=== PATIENT | female | born 1950 | race Hispanic/Latino ===

== ENCOUNTER 2017-07-03 13:22 | Inpatient (IN) | payer MEDICARE ==
[2017-07-03] MEDS ORDERED: Albuterol-Ipratrop 3 mg / 0.5 (3 ml) UD INH STA (14:11)
[2017-07-03] MEDS ORDERED: Sodium Chloride 0.9% 500 ML IV SCH (14:15)
--- NOTE | 2017-07-03 14:20 | ED PDOC ---
HPI:STROKE - Time Time: 14:12 - Historian Historian: Patient, Family - Chief Complaint Chief Complaint: Mental status change - Onset Date: 06/03/17 Time: 14:00 - Timing Timing: Currently Symptomatic, Intermittent - TPA Positive for Contraindication: Yes Reason tPA is not being Administered: out of window for thrombolytics - Notes: Notes:: Pt. with confusion and saying things that are not there off and on for 1 month. Son decided to come in as pt. has had similar when she had a stroke. No weakness. chest pain, dyspnea, fever. Chronic cough for a long time. No numbness, tingles, weakness. No abd pain, nasuea, diarrhea. No vision changes. NIHSS Stroke Scale - Date/Time Evaluation Performed Date Performed: 07/03/17 Time Performed: 14:00 When Was NIHSS Performed: Baseline - How Severe is the Stroke Level of Consciousness: 0=Alert LOC to Questions: 0=Both comments correct LOC to commands: 0=Obeys both correctly Best Gaze: 0=Normal Visual: 0=No visual loss Facial: 0=Normal Motor Arm - Left: 0=No drift Motor Arm - Right: 0=No drift Motor Leg - Left: 0=No drift Motor Leg - Right: 0=No drift Limb Ataxia: 0=Absent Sensory: 0=Normal Best Language: 0=No aphasia Dysarthia: 0=Normal articulation Extinction & Inattention (Neglect): 0=Normal, no object Score: 0 rTPA Inclusion/Exclusion - Refusal of Treatment Patient Refused Treatment: No - Inclusion Criteria for Altepase Patient is 18 years or Older: Yes The Clinical Diagnosis of Ischemic Stroke That is Causing a Potentially Disabling Neurological Deficit: No Time of Onset is Well Established to be Less Than 270 Minute Before Treatment Would Begin: No Risk/Benefit Discussed With Patient/Family Member Present: No Past Medical History Reviewed: Nursing Documentation, Vital Signs Vital Signs: Last Vital Signs Temp 99 F 07/03/17 13:54 Pulse 82 07/03/17 13:54 Resp 18 07/03/17 13:54 BP 148/67 07/03/17 13:54 Pulse Ox 96 07/03/17 13:54 - Medical History PMH: COPD, CVA (no deficits), Diabetes, HTN, Hypercholesterolemia Other PMH: [place] - Surgical History Surgical History: CABG Denies: Pacemaker - Family History Family History: States: Unknown Family Hx - Living Arrangements Living Arrangements: With Family - Social History Current smoker - smoking cessation education provided: No Alcohol: None Drugs: Denies - Home Medications Home Medications: Ambulatory Orders Medication Instructions Recorded Aspirin 81 mg PO DAILY 09/02/12 Enalapril Maleate [Enalapril] 10 mg PO DAILY 09/02/12 Glipizide 5 mg PO HS 09/02/12 Glipizide 10 mg PO DAILY 09/02/12 Metformin HCl [Metformin] 1,000 mg PO BID 09/02/12 Metoprolol Succinate [Toprol XL] 25 mg PO DAILY 09/02/12 Pravastatin Sodium [Pravastatin] 80 mg PO DAILY 09/02/12 - Allergies Allergies/Adverse Reactions: Allergies Allergy/AdvReac Type Severity Reaction Status Date / Time codeine Allergy RASH Verified 07/03/17 13:37 meperidine Allergy RASH Verified 07/03/17 13:37 naproxen Allergy RASH Verified 07/03/17 13:38 Review of Systems ROS Statement: Except As Marked, All Systems Reviewed And Found Negative Respiratory: Positive for: Cough Neurological: Positive for: Confusion, Altered Mental Status Physical Exam - Reviewed Nursing Documentation Reviewed: Yes Vital Signs Reviewed: Yes - Physical Exam Appears: Positive for: Non-toxic, No Acute Distress Head Exam: Positive for: ATRAUMATIC, NORMAL INSPECTION, NORMOCEPHALIC Skin: Positive for: Normal Color, Warm, DRY Eye Exam: Positive for: EOMI, Normal appearance, PERRL ENT: Positive for: Normal ENT Inspection Neck: Positive for: Normal, Painless ROM Cardiovascular/Chest: Positive for: Regular Rate, Rhythm Respiratory: Positive for: Decreased Breath Sounds, Other (mild course breath sounds b/l). Negative for: Accessory Muscle Use Gastrointestinal/Abdominal: Positive for: Normal Exam, Bowel Sounds, Soft. Negative for: Tenderness Back: Positive for: Normal Inspection. Negative for: L CVA Tenderness, R CVA Tenderness Extremity: Positive for: Normal ROM. Negative for: Tenderness, Pedal Edema Neurologic/Psych: Positive for: Alert, dam tender II-XII, Oriented. Negative for: Motor/Sensory Deficits, Aphasia, Facial Droop - Laboratory Results Result Diagrams: 07/03/17 14:35 07/03/17 14:15 Interpretation Of Abn Labs: no acute - ECG ECG: Positive for: Interpreted By Me, Viewed By Me ECG Rhythm: Positive for: Normal QRS, Normal ST Segment, Sinus Rhythm O2 Sat by Pulse Oximetry: 96 Pulse Ox Interpretation: Normal - Radiology X-Ray: Interpreted by Me, Viewed By Me, Read By Radiologist X-Ray Interpretation: No Acute Disease - CT Scan/US head Other Rad Studies (CT/US): Read By Radiologist Other Rad Interpretation: no acute - Progress ED Course And Treament: 1629: Spoke with Dr. Young who agrees with admit. He will consult as needed. No additional tx at this time. 1632: Stable. Spoke with [facility] resident. WIll admit tele. Disposition - Clinical Impression Clinical Impression: Altered mental status - Patient ED Disposition Is Patient to be Admitted: No Counseled Patient/Family Regarding: Studies Performed, Diagnosis - Disposition Disposition Time: 16:00 Condition: FAIR - Pt Status Changed To: Hospital Disposition Of: Inpatient - Admit Certification Admit to Inpatient:: After my assessment, the patient will require hospitalization for at least two midnights. This is because of the severity of symptoms shown, intensity of services needed, and/or the medical risk in this patient being treated as an outpatient. - POA Present On Arrival: None
[2017-07-03 14:38] LABS: BASO # 0.1 K/uL (0.0-0.2); BASO % 1.2 % (0.0-2.0); EOS # 0.1 K/uL (0.0-0.7); EOS % 0.6 % (0.0-4.0); HEMOGLOBIN 14.3 g/dL (12.0-16.0); LYMPH # 1.4 K/uL (1.0-4.3); LYMPH % 13.9 % (20.0-40.0); MEAN CELL VOLUME 86.7 fl (81.0-99.0); MEAN CORPUSCULAR HEMOGLOBIN 28.6 pg (27.0-31.0); MEAN PLATELET VOLUME 8.1 fl (7.2-11.7); MONO # 0.7 K/uL (0.0-0.8); NEUT # 7.7 K/uL (1.8-7.0); NEUT % 77.3 % (50.0-75.0); NRBC % 0.1 % (0.0-0.0); RBC 5.01 Mil/uL (3.80-5.20)
--- NOTE | 2017-07-03 14:51 | CT ---
PROCEDURE: CT HEAD WITHOUT CONTRAST. HISTORY: altered behavior COMPARISON: None available. TECHNIQUE: Axial computed tomography images were obtained through the head/brain without intravenous contrast. Coronal and sagittal reconstructed images. Radiation dose: Total exam DLP = 1132.99 mGy-cm. This CT exam was performed using one or more of the following dose reduction techniques: Automated exposure control, adjustment of the mA and/or kV according to patient size, and/or use of iterative reconstruction technique. FINDINGS: HEMORRHAGE: No intracranial hemorrhage. BRAIN: No mass effect or edema. No atrophy or chronic microvascular ischemic changes. VENTRICLES: Unremarkable. No hydrocephalus. CALVARIUM: Unremarkable. PARANASAL SINUSES: Unremarkable as visualized. No significant inflammatory changes. MASTOID AIR CELLS: Unremarkable as visualized. No inflammatory changes. OTHER FINDINGS: None. IMPRESSION: No acute intracranial abnormalities. No significant findings to account for the clinical presentation.
[2017-07-03 14:56] LABS: INR 1.1 (0.9-1.2); PARTIAL THROMBOPLASTIN TIME 27.8 Seconds (25.6-37.1)
[2017-07-03 15:00] LABS: ALB/GLOB RATIO 1.3 (1.0-2.1); ALT/SGPT 28 U/L (9-52); AST/SGOT 17 U/L (14-36); BLOOD UREA NITROGEN 13 mg/dl (7-17); GFR AFRICAN-AMERICAN > 60; GFR NON-AFRICAN AMERICAN > 60; HDL CHOLESTEROL 42 MG/DL (30-70)
[2017-07-03 15:12] LABS: LDL CHOLESTEROL 130 mg/dL (0-129)
[2017-07-03] MEDS ORDERED: Albuterol-Ipratrop 3 mg / 0.5 (3 ml) UD ONE (15:37)
--- NOTE | 2017-07-03 16:08 | RAD ---
HISTORY: stroke eval COMPARISON: 08/20/2012. FINDINGS: LUNGS: No active pulmonary disease. PLEURA: No significant pleural effusion identified, no pneumothorax apparent. CARDIOVASCULAR: No radiographic findings to suggest acute or significant cardiovascular disease. Incidental Finding(s): Postoperative changes related to sternotomy. OSSEOUS STRUCTURES: No significant abnormalities. VISUALIZED UPPER ABDOMEN: Normal. OTHER FINDINGS: None. IMPRESSION: No active disease. No significant interval change compared to the prior examination(s).
[2017-07-03 18:00] LABS: SQUAMOUS EPITHIAL 3 /hpf (0-5); URINE BILIRUBIN NEGATIVE (NEGATIVE); URINE BLOOD SMALL (NEGATIVE); URINE CLARITY CLEAR (Clear); URINE COLOR YELLOW (YELLOW); URINE GLUCOSE (UA) NEG (Normal); URINE LEUKOCYTE ESTERASE NEG Leu/uL (Negative); URINE NITRATE NEGATIVE (NEGATIVE); URINE PROTEIN 100 mg/dL (NEGATIVE); URINE UROBILINOGEN 0.2-1.0 mg/dL (0.2-1.0)
[2017-07-03] MEDS ORDERED: Albuterol-Ipratrop 3 mg / 0.5 (3 ml) UD INH PRN (19:13)
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
[2017-07-03] MEDS ORDERED: Dextrose 50% SYRINGE Inj (50 ml) IV PRN (19:56)
[2017-07-03] MEDS ORDERED: Glucagon Recombinant 1 mg Inj IM PRN (19:56)
[2017-07-03] MEDS: Insulin Regular 100 units/ml SC SCH (21:44)
[2017-07-04 01:28] LABS: BARBITURATES, UR NEGATIVE (NEGATIVE); BENZODIAZEPINES, UR NEGATIVE (NEGATIVE); OPIATES, UR NEGATIVE (NEGATIVE); PHENCYCLIDINE, UR NEGATIVE (NEGATIVE)
[2017-07-04] MEDS: Insulin Regular 100 units/ml SC SCH (06:53)
--- NOTE | 2017-07-04 07:36 | CARD ---
APPROVED REPORT EKG Measurement Heart [id number] <Conclusion> Normal sinus rhythm Biatrial enlargement Left ventricular hypertrophy Abnormal ECG
[2017-07-04 08:15] VITALS: RESP 18; TEMP 98; O2SAT 94
[2017-07-04] MEDS ORDERED: Pravastatin Sodium 40 MG TAB PO SCH (09:00)
[2017-07-04] MEDS ORDERED: FATTY ACIDS PO SCH (09:00)
[2017-07-04] MEDS ORDERED: GlipiZIDE 5 mg SR Tab PO SCH (09:00)
[2017-07-04] MEDS ORDERED: Enoxaparin 40 mg Syringe SC SCH (09:00)
[2017-07-04] MEDS ORDERED: OMEGA PO SCH (09:00)
[2017-07-04] MEDS ORDERED: Patient's Own Med (Enalapril/Hydrochlorothiazide [Enalapril-Hctz 10-25 Mg Tablet] 1 TAB) PO SCH (09:00)
[2017-07-04] MEDS ORDERED: FOLIC ACID 400 MCG PO SCH (09:00)
[2017-07-04] MEDS ORDERED: FISH OIL PO SCH (09:00)
[2017-07-04] MEDS ORDERED: Omega-3-Acid Ethyl Esters 1 GM Cap PO SCH (09:00)
--- NOTE | 2017-07-04 11:02 | CP.PCM.CON ---
History of Present Illness - History of Present Illness History of Present Illness: this 66-year -old female who required left carotid endarterectomy after indirect inguinal infarct in July subsequently required coronary bypass graft surgery in November 2012. Patient has been a long-standing hypertensive and diabetic with dyslipidemia was also has been a heavy cigarette smoker. She has significant COPD and chronic productive cough. The patient is physically extremely active and climbs couple of flights of stairs on multiple occasions in the course of an average day as part of her work. 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 She has not had symptoms of congestive cardiac failure or chest pain unconnected to physical activity. She has not been on any Diuretics. The patient has not been able to take her antibiotic diabetic because she could not afford it for couple of years. Recently she had a fall and her sternotomy has dehisced. She complains of severe discomfort while coughing. She has also developed severe bursitis of both shoulders. The patient recently developed short-term memory deficit. She has been quite concerned about periods of confusion. She was brought to the emergency room yesterday by her son when he found her repeating herself and being confused. On examination this morning the patient appears quite lucid and concerned about her periods of confusion as well. She continues to experience severe bilateral shoulder pains particularly on any movement. She was afebrile with a pulse rate of 68 bpm and regular and a blood pressure of 134/74 mmHg. Her jugular venous pressure was not elevated there was no edema or lower extremities the pedal pulses were not palpable there were no carotid bruits. A scar of left carotid endarterectomy was evident. Her extremities were warm her nailbeds were pink there was no central or peripheral cyanosis there was no clubbing a sternotomy was evident. The first and second heart sounds were normal there was no murmur or gallop there were no rales her abdomen was soft liver and spleen are not palpable Her electric cardiogram showed sinus rhythm with a normal EKG pattern. Her labs were noted. Impression: stable coronary artery disease with status post coronary bypass graft surgery. Status post left carotid endarterectomy. Diabetes mellitus/ hypertension/dyslipidemia. Severe peripheral arterial disease with claudication. Bilateral bursitis of shoulders. The patient is stable from cardiovascular point of view and no further interventions are necessary as far as her cardiac status is concerned.. Past Patient History - Past Medical History & Family History Past Medical History?: Yes - Past Social History Alcohol: None Drugs: Denies - CARDIAC Hx Cardiac Disorders: Yes - PULMONARY Hx Respiratory Disorders: No - NEUROLOGICAL Hx Neurological Disorder: Yes - HEENT Hx HEENT Problems: No - RENAL Hx Chronic Kidney Disease: No - ENDOCRINE/METABOLIC Hx Endocrine Disorders: Yes - HEMATOLOGICAL/ONCOLOGICAL Hx Blood Transfusions: No Hx Blood Transfusion Reaction: No - INTEGUMENTARY Hx Dermatological Problems: No - MUSCULOSKELETAL/RHEUMATOLOGICAL Hx Musculoskeletal Disorders: No - GASTROINTESTINAL Hx Gastrointestinal Disorders: No - GENITOURINARY/GYNECOLOGICAL Hx Genitourinary Disorders: No - PSYCHIATRIC Hx Psychophysiologic Disorder: No - SURGICAL HISTORY Hx Coronary Artery Bypass Graft: Yes - ANESTHESIA Hx Anesthesia: Yes Hx Anesthesia Reactions: No Hx Malignant Hyperthermia: No Meds Allergies/Adverse Reactions: Allergies Allergy/AdvReac Type Severity Reaction Status Date / Time codeine Allergy RASH Verified 07/03/17 13:37 meperidine Allergy RASH Verified 07/03/17 13:37 naproxen Allergy RASH Verified 07/03/17 13:38 - Medications Medications: Current Medications Albuterol/Ipratropium (Duoneb 3 Mg/0.5 Mg (3 Ml) Ud) 3 ml INH RQ6 PRN PRN Reason: Shortness of Breath Dextrose (Dextrose 50% Inj) 0 ml IV STAT PRN; Protocol PRN Reason: Hyglycemia Protocol Dextrose (Glutose 15) 0 gm PO ONCE PRN; Protocol PRN Reason: Hypoglycemia Protocol Enalapril Maleate (Vasotec) 10 mg PO DAILY [facility] Last Admin: 07/04/17 08:54 Dose: 10 mg Enoxaparin Sodium (Lovenox) 40 mg SC DAILY [facility] PRN Reason: Protocol Last Admin: 07/04/17 08:52 Dose: 40 mg Glipizide (Glucotrol Xl) 5 mg PO DAILY@0800 [facility] Last Admin: 07/04/17 08:54 Dose: 5 mg Glucagon (Glucagen Diagnostic Kit) 0 mg IM STAT PRN; Protocol PRN Reason: Hypoglycemia Protocol Home Med (Enalapril/Hydrochlorothiazide [Enalapril-Hctz 10-25 Mg Tablet]) 1 tab PO DAILY [facility] Hydrochlorothiazide (Hydrodiuril) 25 mg PO DAILY [facility] Last Admin: 07/04/17 08:52 Dose: 25 mg Ibuprofen (Motrin Tab) 600 mg PO Q6 PRN PRN Reason: Pain, moderate (4-7) Last Admin: 07/04/17 05:01 Dose: 600 mg Insulin Human Regular (Humulin R) 0 units SC ACHS [facility] PRN Reason: Protocol Last Admin: 07/04/17 06:53 Dose: Not Given Metformin HCl (Glucophage) 1,000 mg PO BID@0800,1700 [facility] Last Admin: 07/04/17 08:53 Dose: 1,000 mg Metoprolol Tartrate (Lopressor) 25 mg PO Q12H [facility] Last Admin: 07/04/17 06:49 Dose: 25 mg Morphine Sulfate (Morphine) 1 mg IVP Q4 PRN PRN Reason: Pain, severe (8-10) Last Admin: 07/04/17 09:05 Dose: 1 mg Nicotine (Nicoderm Cq) 1 patch TD DAILY [facility] Last Admin: 07/04/17 08:54 Dose: Not Given Nitroglycerin (Nitrostat Sl Tab) 0.4 mg SL Q5MIN PRN PRN Reason: chest pain Unycd-9-Wypi Ethyl Esters (Lovaza) 1 gm PO DAILY [facility] Last Admin: 07/04/17 08:54 Dose: 1 gm Pravastatin Sodium (Pravachol) 40 mg PO DAILY [facility] Last Admin: 07/04/17 08:53 Dose: 40 mg Results - Vital Signs Recent Vital Signs: Last Vital Signs Temp 98.0 F 07/04/17 08:00 Pulse 61 07/04/17 08:00 Resp 18 07/04/17 08:00 BP 186/65 H 07/04/17 08:00 Pulse Ox 94 L 07/04/17 08:00 - Labs Result Diagrams: 07/03/17 14:35 07/03/17 14:15 Labs: Laboratory Results - last 24 hr 07/03/17 07/03/17 07/03/17 17:30 20:48 23:09 POC Glucose (mg/dL) 219 H Troponin I 0.0130 TSH 3rd Generation Urine Color Yellow Urine Clarity Clear Urine pH 6.0 Ur Specific [place] 1.011 Urine Protein 100 Urine Glucose (UA) Neg Urine Ketones Negative Urine Blood Small Urine Nitrate Negative Urine Bilirubin Negative Urine Urobilinogen 0.2-1.0 Ur Leukocyte Esterase Neg Urine RBC (Auto) 1 Urine Microscopic WBC < 1 Ur Squamous Epith Cells 3 07/04/17 07/04/17 05:12 05:40 POC Glucose (mg/dL) 150 H Troponin I TSH 3rd Generation 3.42 Urine Color Urine Clarity Urine pH Ur Specific [place] Urine Protein Urine Glucose (UA) Urine Ketones Urine Blood Urine Nitrate Urine Bilirubin Urine Urobilinogen Ur Leukocyte Esterase Urine RBC (Auto) Urine Microscopic WBC Ur Squamous Epith Cells
--- NOTE | 2017-07-04 11:54 | CARD ---
APPROVED REPORT EXAM: Two-dimensional and M-mode echocardiogram with Doppler and color Doppler. Other Information Quality : FairRhythm : NSR INDICATION Cardiac Disease: CAD LVH Surgery/Intervention ICD/Pacemaker: 2D DIMENSIONS IVSd0.67 (0.7-1.1cm)LVDd4.31 (3.9-5.9cm) LVOT Diameter1.76 (1.8-2.4cm)PWd0.79 (0.7-1.1cm) IVSs1.08 (0.8-1.2cm)LVDs2.48 (2.5-4.0cm) FS (%) 42.4 %PWs1.13 (0.8-1.2cm) M-Mode DIMENSIONS Left Atrium (MM)3.97 (2.5-4.0cm)IVSd0.88 (0.7-1.1cm) Aortic Root2.72 (2.2-3.7cm)LVDd4.19 (4.0-5.6cm) Aortic Cusp Exc.1.97 (1.5-2.0cm)PWd0.91 (0.7-1.1cm) IVSs1.50 cmFS (%) 39 % LVDs2.56 (2.0-3.8cm)PWs1.00 cm Aortic Valve AoV Peak Anpjcjpf157.2cm/sAoV VTI54.5cmAO Peak GR.16mmHg LVOT Peak Kglnrary065.0cm/sLVOT VTI36.67cmAO Mean GR.10mmHg BARBARA (VMAX)0.28qb9HAO (VTI)0.94cm2 Mitral Valve MV E Nlymwjgc29.7cm/sMV DECEL MROL460qoDD A Bdcgmnbe86.3cm/s MV FJX17xcC/A ratio0.9MVA (PHT)3.52cm2 TDI Lateral E' Peak V7.66cm/sMedial E' Peak V5.05cm/sE/Lateral E'9.4 E/Medial E'14.2 Tricuspid Valve TR Peak Ndinhqtq635ok/sRAP WXWHGXKL31edUwZX Peak Gr.26mmHg UFSC05uwSw LEFT VENTRICLE The left ventricle is normal size. There is normal left ventricular wall thickness. Left ventricle systolic function is normal. The Ejection Fraction is 60-65%. There is normal LV segmental wall motion. Transmitral Doppler flow pattern is Grade I-abnormal relaxation pattern. RIGHT VENTRICLE The right ventricle is normal size. There is normal right ventricular wall thickness. The right ventricular systolic function is normal. ATRIA The left atrium size is normal. The right atrium size is normal. AORTIC VALVE The aortic valve is mildly sclerotic. No aortic regurgitation is present. There is mild valvular aortic stenosis. Calculated aortic valve area is 1.7 cm2 with maximum pressure gradient of 17 mmHg and mean pressure gradient of 10 mmHg. MITRAL VALVE The mitral valve is normal in structure and function. There is no evidence of mitral valve prolapse. There is no mitral valve stenosis. There is no mitral valve regurgitation noted. TRICUSPID VALVE The tricuspid valve is normal in structure and function. There is no tricuspid valve regurgitation noted. PULMONIC VALVE The pulmonary valve is normal in structure and function. There is no pulmonic valvular regurgitation. GREAT VESSELS The aortic root is normal in size. The IVC was not visualized. PERICARDIAL EFFUSION The pericardium appears normal. <Conclusion> The left ventricle is normal size. There is normal left ventricular wall thickness. There is normal LV segmental wall motion. Left ventricle systolic function is normal. The Ejection Fraction is 60-65%. Transmitral Doppler flow pattern is Grade I-abnormal relaxation pattern. There is mild valvular aortic stenosis. Calculated aortic valve area is 1.7 cm2 with maximum pressure gradient of 17 mmHg and mean pressure gradient of 10 mmHg.
[2017-07-04 12:55] VITALS: BP 161/63; PULSE 60
== END 2017-07-04 13:05 | disposition left against medical advice (07) | DRG 948 ==
LOC: H.ER 13:22 → H.ERHOLD 16:34 → H.TEL 19:17
PROVIDERS: ADMIT Family Medicine Geriatric Medicine; ATTEND Family Medicine Geriatric Medicine
DX: R41.82 Altered mental status, unspecified (principal); E11.65 Type 2 diabetes mellitus with hyperglycemia; J44.9 Chronic obstructive pulmonary disease, unspecified; R07.9 Chest pain, unspecified; I25.2 Old myocardial infarction; I73.9 Peripheral vascular disease, unspecified; I10 Essential (primary) hypertension; I25.10 Atherosclerotic heart disease of native coronary artery without angina pectoris; E78.5 Hyperlipidemia, unspecified; M75.52 Bursitis of left shoulder; M75.51 Bursitis of right shoulder; F17.210 Nicotine dependence, cigarettes, uncomplicated; Z95.1 Presence of aortocoronary bypass graft

== ENCOUNTER 2018-04-24 18:27 | Inpatient (IN) | payer MEDICARE ==
[2018-04-24] MEDS ORDERED: Albuterol-Ipratrop 3 mg / 0.5 (3 ml) UD IH STA ×2 (18:57→18:58)
[2018-04-24] MEDS ORDERED: Albuterol-Ipratrop 3 mg / 0.5 (3 ml) UD INH STA (18:57)
--- NOTE | 2018-04-24 19:14 | ED PDOC ---
HPI: SOB/CHF/COPD Time Seen by Provider: 04/24/18 18:41 Chief Complaint (Nursing): Shortness Of Breath Chief Complaint (Provider): Dyspnea History Per: Patient History/Exam Limitations: no limitations Onset/Duration Of Symptoms: Days (3) Additional Complaint(s): Pt. with dyspnea, cough, chest pain off and on. No weakness, headaches, dizziness, neck pain, abd pain, nausea, vomit, diarrhea, leg pain. No back pain. No fever. Has COPD and smokes. Green phlegm for 3 days. Past Medical History Reviewed: Nursing Documentation, Vital Signs Vital Signs: Last Vital Signs Temp 99.1 F 04/24/18 18:30 Pulse 79 04/24/18 18:30 Resp 20 04/24/18 19:40 BP 137/58 L 04/24/18 18:30 Pulse Ox 95 04/24/18 19:40 - Medical History PMH: COPD, CVA (no deficits), Dementia, Diabetes, HTN, Hypercholesterolemia Denies: Chronic Kidney Disease - Surgical History Surgical History: CABG, Carotid Endarterectomy Denies: Pacemaker - Family History Family History: States: Unknown Family Hx - Social History Alcohol: None Drugs: Denies - Home Medications Home Medications: Ambulatory Orders Medication Instructions Recorded Aspirin [Aspirin EC] 325 mg PO DAILY 07/03/17 Enalapril/Hydrochlorothiazide 1 tab PO DAILY 07/03/17 [Enalapril-Hctz 10-25 mg Tablet] Folic Acid [Folic Acid] 400 mcg PO BID 07/03/17 Glipizide [Glipizide Xl] 5 mg PO DAILY 07/03/17 MetFORMIN [glucoPHAGE] 1,000 mg PO BID 07/03/17 Metoprolol Tartrate [Lopressor] 25 mg PO Q12H 07/03/17 Nitroglycerin [Nitrostat] 0.4 mg SL Q5MIN PRN 07/03/17 Irving-3 Fatty Acids/Fish Oil [Fish 1,000 mg PO DAILY 07/03/17 Oil 1,000 mg Capsule] Pravastatin Sodium [Pravachol] 40 mg PO DAILY 07/03/17 - Allergies Allergies/Adverse Reactions: Allergies Allergy/AdvReac Type Severity Reaction Status Date / Time codeine Allergy RASH Verified 04/24/18 18:34 meperidine Allergy RASH Verified 04/24/18 18:34 naproxen Allergy RASH Verified 04/24/18 18:34 Review of Systems ROS Statement: Except As Marked, All Systems Reviewed And Found Negative ENT: Positive for: Nose Congestion Cardiovascular: Positive for: Chest Pain Respiratory: Positive for: Cough, Shortness of Breath, Sputum Physical Exam - Reviewed Nursing Documentation Reviewed: Yes Vital Signs Reviewed: Yes - Physical Exam Appears: Positive for: Non-toxic, No Acute Distress Head Exam: Positive for: ATRAUMATIC, NORMAL INSPECTION, NORMOCEPHALIC Skin: Positive for: Normal Color, Warm, DRY Eye Exam: Positive for: EOMI, Normal appearance, PERRL ENT: Positive for: Nasal Congestion Neck: Positive for: Normal, Painless ROM Cardiovascular/Chest: Positive for: Regular Rate, Rhythm Respiratory: Positive for: Decreased Breath Sounds, Wheezing (b/l). Negative for: Accessory Muscle Use Gastrointestinal/Abdominal: Positive for: Normal Exam, Soft. Negative for: Tenderness Back: Positive for: Normal Inspection. Negative for: L CVA Tenderness, R CVA Tenderness Extremity: Positive for: Normal ROM. Negative for: Tenderness, Pedal Edema Neurologic/Psych: Positive for: Alert, Oriented - Laboratory Results Result Diagrams: 04/24/18 19:45 04/24/18 19:45 Interpretation Of Abn Labs: 2.6 k - ECG ECG: Positive for: Interpreted By Me, Viewed By Me ECG Rhythm: Positive for: Normal QRS, Sinus Rhythm, Nonspecific Changes O2 Sat by Pulse Oximetry: 95 Pulse Ox Interpretation: Normal - Radiology X-Ray: Interpreted by Me, Viewed By Me X-Ray Interpretation: No Acute Disease - Progress ED Course And Treament: 2103: Spoke with [facility] resident. Will admit tele. No pain. AAOx3. Has multiple risk factors. Will need ACS work up and copd management. Disposition - Clinical Impression Clinical Impression: Chest pain, COPD exacerbation - Patient ED Disposition Is Patient to be Admitted: No Counseled Patient/Family Regarding: Studies Performed, Diagnosis - Disposition Disposition Time: 21:04 Condition: FAIR - Pt Status Changed To: Hospital Disposition Of: Observation - POA Present On Arrival: None
[2018-04-24] MEDS ORDERED: Albuterol-Ipratrop 3 mg / 0.5 (3 ml) UD ONE (19:22)
[2018-04-24] MEDS: Sodium Chloride 0.9% 1,000 ML IV SCH (19:35)
[2018-04-24 19:39] LABS: ABG ALLEN TEST YES; ARTERIAL BLOOD GAS O2 SAT 98.1 % (95-98); ARTERIAL BLOOD GAS PCO2 51 mm/Hg (35-45); ARTERIAL BLOOD GAS PO2 60 mm/Hg (80-100); ARTERIAL BLOOD GAS TCO2 41.4 mmol/L (22-28)
[2018-04-24] MEDS ORDERED: Iohexol 240 (50 ml) ONE (19:51)
[2018-04-24 19:54] LABS: BASO # 0.1 K/uL (0.0-0.2); EOS % 0.3 % (0.0-4.0); LYMPH # 1.2 K/uL (1.0-4.3); MEAN CELL VOLUME 85.8 fl (81.0-99.0); MEAN CORPUSCULAR HEMOGLOBIN 29.6 pg (27.0-31.0); MEAN CORPUSCULAR HGB CONC 34.5 g/dL (33.0-37.0); MEAN PLATELET VOLUME 8.3 fl (7.2-11.7); MONO # 0.9 K/uL (0.0-0.8); MONO % 8.9 % (0.0-10.0); NEUT # 7.6 K/uL (1.8-7.0); NEUT % 77.8 % (50.0-75.0); NRBC % 0.1 % (0.0-0.0); RBC 5.07 Mil/uL (3.80-5.20); RED CELL DISTRIBUTION WIDTH 14.1 % (11.5-14.5); WHITE BLOOD COUNT 9.8 K/uL (4.8-10.8)
[2018-04-24 20:09] LABS: ALB/GLOB RATIO 1.1 (1.0-2.1); ALBUMIN 3.7 g/dL (3.5-5.0); ALT/SGPT 27 U/L (9-52); AST/SGOT 14 U/L (14-36); BLOOD UREA NITROGEN 12 mg/dl (7-17); CALCIUM 9.5 mg/dL (8.4-10.2); GFR AFRICAN-AMERICAN > 60; GFR NON-AFRICAN AMERICAN > 60
[2018-04-24 20:20] LABS: B-TYPE NATRIURETIC PEPTIDE 711 pg/ml (0-900)
[2018-04-24 21:00] LABS: PARTIAL THROMBOPLASTIN TIME 28.1 Seconds (25.6-37.1); PROTHROMBIN TIME 11.4 Seconds (9.8-13.1)
[2018-04-24] MEDS ORDERED: Potassium Chloride 20 mEq ER Tab PO STA (21:00)
[2018-04-24] MEDS ORDERED: Potassium Chl 20 mEq in NS 1,000 ML IV SCH (22:00)
[2018-04-24] MEDS ORDERED: Dextrose 50% SYRINGE Inj (50 ml) IV PRN (22:00)
[2018-04-24] MEDS ORDERED: Glucagon Recombinant 1 mg Inj IM PRN (22:00)
[2018-04-24] MEDS ORDERED: levoFLOXacin 750 mg in D5W 150 ML BAG IVPB SCH (22:17)
[2018-04-24] MEDS ORDERED: Insulin Regular 100 units/ml ONE (22:47)
[2018-04-24] MEDS: Insulin Regular 100 units/ml SC SCH (22:55)
--- NOTE | 2018-04-24 23:31 | US ---
EXAM: US Abdomen Limited, Right Upper Quadrant EXAM DATE/TIME: 04/24/2018 9:48 PM CLINICAL HISTORY: 67 years old, female; Pain and signs and symptoms; Vomiting; Abdominal pain; Epigastric; Additional info: Vomiting, right upper quad tenderness TECHNIQUE: Real-time ultrasound of the right upper quadrant with image documentation. COMPARISON: No relevant prior studies available. FINDINGS: There is a negative sonographic Rico's sign per environmental health technologist. Numerous gallstones are present. No pericholecystic fluid. The gallbladder wall measures 2 mm which is within normal limits. The common bile duct measures 5 mm which is within normal limits. The liver is normal and measures 16 cm. The pancreas is normal. No right hydronephrosis. The right kidney measures 11 cm in length. IMPRESSION: Cholelithiasis without evidence of cholecystitis.
--- NOTE | 2018-04-24 23:43 | CP.PCM.HP ---
History of Present Illness - History of Present Illness History of Present Illness: 67 YO F w/ PMH of CAD, PVD, HTN, HLD, Type 2 DM, carotid stenosis s/p endartectomy, COPD presented to the ED with chest pain since 3:30 pm states it is sharp in nature and does not radiate. She has also been having increased SOB. She states she has been taking her medications, however her she has increased difficulty breathing with productive cough over the last 3 days. Denies any fever, chills or travel outside of the country. Patients's thoughts are scattered and has difficulty focusing on the questions, seems to be her baseline according to previous notes. - Patient states she has been having some vomiting and diarrhea. States her vomiting and diarrhea is associated eating jello and chocolate. She had her last eppisode of vomiting around 3 pm when the chest pain began. Has history of chronic constipation and has been using rectal suppositories every other day. States she has history of hemmorids and noticed blood on wiping. Hemoglobin is stable at 15.3. - States she has a history of falls, last fall was on her last admission in 2017. 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 Colindres at [facility] Cardiology: Dr. Young NExt of kin: Frandy (Son) : Unsure of code status, will discuss with son Present on Admission - Present on Admission Any Indicators Present on Admission: No Review of Systems - Review of Systems All systems: reviewed and no additional remarkable complaints except Past Patient History - Past Medical History & Family History Past Medical History?: Yes - Past Social History Alcohol: None Drugs: Denies - CARDIAC Hx Hypercholesterolemia: Yes Hx Hypertension: Yes Hx Pacemaker: No - PULMONARY Hx Chronic Obstructive Pulmonary Disease (COPD): Yes - NEUROLOGICAL Hx Dementia: Yes - HEENT Hx HEENT Problems: No - RENAL Hx Chronic Kidney Disease: No - ENDOCRINE/METABOLIC Hx Endocrine Disorders: Yes - HEMATOLOGICAL/ONCOLOGICAL Hx Blood Transfusions: No Hx Blood Transfusion Reaction: No - INTEGUMENTARY Hx Dermatological Problems: No - MUSCULOSKELETAL/RHEUMATOLOGICAL Hx Musculoskeletal Disorders: No - GASTROINTESTINAL Hx Gastrointestinal Disorders: No - GENITOURINARY/GYNECOLOGICAL Hx Genitourinary Disorders: No - PSYCHIATRIC Hx Psychophysiologic Disorder: No Hx Substance Use: No - SURGICAL HISTORY Hx Carotid Endarterectomy: Yes Hx Coronary Artery Bypass Graft: Yes - ANESTHESIA Hx Anesthesia: Yes Hx Anesthesia Reactions: No Hx Malignant Hyperthermia: No Meds Allergies/Adverse Reactions: Allergies Allergy/AdvReac Type Severity Reaction Status Date / Time codeine Allergy RASH Verified 04/24/18 18:34 meperidine Allergy RASH Verified 04/24/18 18:34 naproxen Allergy RASH Verified 04/24/18 18:34 Physical Exam - Constitutional Appears: No Acute Distress - Head Exam Head Exam: NORMAL INSPECTION - Eye Exam Eye Exam: Normal appearance Pupil Exam: NORMAL ACCOMODATION - ENT Exam ENT Exam: Mucous Membranes Moist, Normal Exam - Respiratory Exam Respiratory Exam: Decreased Breath Sounds, Wheezes. absent: Accessory Muscle Use - Cardiovascular Exam Cardiovascular Exam: REGULAR RHYTHM, +S1, +S2 - GI/Abdominal Exam GI & Abdominal Exam: Soft, Tenderness (mild generalized tenderness, right upper quadrant tenderness) - Extremities Exam Extremities exam: Positive for: calf tenderness, normal inspection - Neurological Exam Neurological exam: Alert, CN II-XII Intact, Oriented x3 - Skin Skin Exam: Normal Color, Warm Results - Vital Signs Recent Vital Signs: Last Vital Signs Temp 98.2 F 04/24/18 23:23 Pulse 82 04/24/18 23:23 Resp 20 04/24/18 23:23 BP 143/83 04/24/18 23:23 Pulse Ox 96 04/24/18 23:23 - Labs Result Diagrams: 04/25/18 05:07 04/25/18 05:07 Labs: Laboratory Results - last 24 hr 04/24/18 04/24/18 04/24/18 19:25 19:45 19:45 WBC 9.8 RBC 5.07 Hgb 15.0 Hct 43.5 MCV 85.8 MCH 29.6 MCHC 34.5 RDW 14.1 Plt Count 338 MPV 8.3 Neut % (Auto) 77.8 H Lymph % (Auto) 12.0 L [place] % (Auto) 8.9 Eos % (Auto) 0.3 Baso % (Auto) 1.0 Neut # (Auto) 7.6 H Lymph # (Auto) 1.2 [place] # (Auto) 0.9 H Eos # (Auto) 0.0 Baso # (Auto) 0.1 PT INR APTT pCO2 51 H pO2 60 L HCO3 36.0 H ABG pH 7.50 H ABG Total CO2 41.4 H ABG O2 Saturation 98.1 H ABG Base Excess 14.3 H Kaden Test Yes ABG Potassium 2.5 L* A-a O2 Difference 76.0 Sodium 137.0 137 Chloride 95.0 L 93 L Glucose 303 H Lactate 0.8 Vent Mode N/c FiO2 28.0 Crit Value Called To Tay patel md Crit Value Called By 6075 Crit Value Read Back Y Blood Gas Notified Time 1938 Potassium 2.6 L Carbon Dioxide 36 H Anion Gap 11 BUN 12 Creatinine 0.6 L Est GFR ( Amer) > 60 Est GFR (Non-Af Amer) > 60 POC Glucose (mg/dL) Random Glucose 291 H Calcium 9.5 Phosphorus 2.4 L Magnesium 1.6 Total Bilirubin 0.6 AST 14 ALT 27 Alkaline Phosphatase 79 Troponin I 0.0200 NT-Pro-B Natriuret Pep 711 Total Protein 7.0 Albumin 3.7 Globulin 3.4 Albumin/Globulin Ratio 1.1 Lipase Arterial Blood Potassium 2.5 L* Influenza Typ A,B (EIA) 04/24/18 04/24/18 04/24/18 19:45 19:45 21:41 WBC RBC Hgb Hct MCV MCH MCHC RDW Plt Count MPV Neut % (Auto) Lymph % (Auto) [place] % (Auto) Eos % (Auto) Baso % (Auto) Neut # (Auto) Lymph # (Auto) [place] # (Auto) Eos # (Auto) Baso # (Auto) PT 11.4 INR 1.0 APTT 28.1 pCO2 pO2 HCO3 ABG pH ABG Total CO2 ABG O2 Saturation ABG Base Excess Kaden Test ABG Potassium A-a O2 Difference Sodium Chloride Glucose Lactate Vent Mode FiO2 Crit Value Called To Crit Value Called By Crit Value Read Back Blood Gas Notified Time Potassium Carbon Dioxide Anion Gap BUN Creatinine Est GFR ( Amer) Est GFR (Non-Af Amer) POC Glucose (mg/dL) 231 H Random Glucose Calcium Phosphorus Magnesium Total Bilirubin AST ALT Alkaline Phosphatase Troponin I NT-Pro-B Natriuret Pep Total Protein Albumin Globulin Albumin/Globulin Ratio Lipase Arterial Blood Potassium Influenza Typ A,B (EIA) Negative for flu a/b 04/24/18 22:36 WBC RBC Hgb Hct MCV MCH MCHC RDW Plt Count MPV Neut % (Auto) Lymph % (Auto) [place] % (Auto) Eos % (Auto) Baso % (Auto) Neut # (Auto) Lymph # (Auto) [place] # (Auto) Eos # (Auto) Baso # (Auto) PT INR APTT pCO2 pO2 HCO3 ABG pH ABG Total CO2 ABG O2 Saturation ABG Base Excess Kaden Test ABG Potassium A-a O2 Difference Sodium Chloride Glucose Lactate Vent Mode FiO2 Crit Value Called To Crit Value Called By Crit Value Read Back Blood Gas Notified Time Potassium Carbon Dioxide Anion Gap BUN Creatinine Est GFR ( Amer) Est GFR (Non-Af Amer) POC Glucose (mg/dL) Random Glucose Calcium Phosphorus Magnesium Total Bilirubin AST ALT Alkaline Phosphatase Troponin I NT-Pro-B Natriuret Pep Total Protein Albumin Globulin Albumin/Globulin Ratio Lipase 40 Arterial Blood Potassium Influenza Typ A,B (EIA) Assessment & Plan - Assessment and Plan (Free Text) Assessment: 67 YO F w/ PMH of CAD, PVD, HTN, HLD, Type 2 DM, carotid stenosis s/p endartectomy, COPD admitted for COPD exacerbation and r/o ACS Chest Pain/CAD- s/p CABG - Troponin x 1 negative follow up troponin and morning repeat ekg - EKG : Non specific EKG changes noted. No acute ischemic event noted Hypokalemia - 2.6 - Potassium 60 x 1 given - IVF with 20 KCL given at 125, - F/U with AM labs COPD exacerbation - Levofloxacin 750 mg daily - Duoneb NESSA - Prednisone 60mg daily HTN 1- Enalapril 10mg QD 2- HCTHZ 25mg QD 3- Metoprolol 25mg BID DM- Type II uncontrolled 1- Continue Metformin 500 BID 2- Continue Glipizie 3- HbA1c pending : Previous HBA1C: 7.7 on 06/2017 4- Sliding scale Insulin- low dose Tobacco abuse 1- Nicotine Patch DVT prophylaxis 1- Lovenox 40mg sc
[2018-04-25] MEDS: levoFLOXacin 750 mg in D5W 750 MG/150 ML BAG IVPB SCH ×2 (00:31→09:21)
[2018-04-25] MEDS ORDERED: DiphenhydrAMINE 50 mg/ml Inj IVP STA (00:56)
[2018-04-25] MEDS: Albuterol-Ipratrop 3 mg / 0.5 (3 ml) UD INH SCH ×7 (01:25→23:55)
[2018-04-25 02:17] LABS: SQUAMOUS EPITHIAL 4 /hpf (0-5); URINE BACTERIA RARE (<OCC); URINE BILIRUBIN NEGATIVE (NEGATIVE); URINE BLOOD NEGATIVE (NEGATIVE); URINE CLARITY SLIGHTY-CLOUDY (Clear); URINE COLOR YELLOW (YELLOW); URINE GLUCOSE (UA) >=500 mg/dL (Normal); URINE LEUKOCYTE ESTERASE NEG Leu/uL (Negative); URINE PROTEIN 100 mg/dL (NEGATIVE)
[2018-04-25 05:31] LABS: BASO # 0.1 K/uL (0.0-0.2); BASO % 0.8 % (0.0-2.0); EOS # 0.1 K/uL (0.0-0.7); EOS % 0.7 % (0.0-4.0); HEMOGLOBIN 15.3 g/dL (12.0-16.0); LYMPH # 1.7 K/uL (1.0-4.3); LYMPH % 18.4 % (20.0-40.0); MEAN CELL VOLUME 87.4 fl (81.0-99.0); MEAN CORPUSCULAR HEMOGLOBIN 29.7 pg (27.0-31.0); MEAN PLATELET VOLUME 8.3 fl (7.2-11.7); MONO % 10.6 % (0.0-10.0); NEUT # 6.3 K/uL (1.8-7.0); NEUT % 69.5 % (50.0-75.0); NRBC % 0.1 % (0.0-0.0); RBC 5.14 Mil/uL (3.80-5.20); RED CELL DISTRIBUTION WIDTH 13.9 % (11.5-14.5)
[2018-04-25 05:34] LABS: ALBUMIN 3.4 g/dL (3.5-5.0); ALT/SGPT 24 U/L (9-52); AST/SGOT 12 U/L (14-36); BLOOD UREA NITROGEN 8 mg/dl (7-17); CALCIUM 9.5 mg/dL (8.4-10.2); GFR AFRICAN-AMERICAN > 60; GFR NON-AFRICAN AMERICAN > 60; HDL CHOLESTEROL 28 MG/DL (30-70)
[2018-04-25 05:42] LABS: LDL CHOLESTEROL 139 mg/dL (0-129)
[2018-04-25] MEDS ORDERED: Potassium Chloride 20 mEq/15 ml LIQ UD PO STA (05:55)
[2018-04-25] MEDS ORDERED: Potassium Chloride 20 mEq/15 ml LIQ UD PO ONE ×2 (06:01→06:03)
[2018-04-25] MEDS: Insulin Regular 100 units/ml SC SCH ×4 (06:34→21:57)
[2018-04-25] MEDS: Fluticasone-Salmeterol 250-50mcg Diskus IH SCH ×2 (08:59→21:54)
[2018-04-25] MEDS ORDERED: levoFLOXacin 750 mg in D5W 750 MG/150 ML BAG IVPB SCH (09:00)
[2018-04-25] MEDS: GlipiZIDE 5 mg SR Tab PO SCH (09:00)
[2018-04-25] MEDS ORDERED: Patient's Own Med (Enalapril/Hydrochlorothiazide [Enalapril-Hctz 10-25 Mg Tablet] 1 TAB) PO SCH (09:00)
[2018-04-25] MEDS: Enoxaparin 40 mg Syringe SC SCH (09:00)
--- NOTE | 2018-04-25 09:08 | RAD ---
HISTORY: Sepsis Patient COMPARISON: Chest radiograph dated 07/03/2017 FINDINGS: LUNGS: No active pulmonary disease. PLEURA: No significant pleural effusion identified, no pneumothorax apparent. CARDIOVASCULAR: Prior sternotomy with sternal wires and surgical clips redemonstrated. Atherosclerotic aortic calcifications. Cardiomediastinal silhouette within normal limits. OSSEOUS STRUCTURES: Unchanged. VISUALIZED UPPER ABDOMEN: Normal. OTHER FINDINGS: None. IMPRESSION: No active disease.
[2018-04-25] MEDS: Pravastatin Sodium 40 MG TAB PO SCH (09:20)
[2018-04-25] MEDS: PrednisoLONE 15 mg/5 ml Oral Syrup (240 ml) PO SCH (09:20)
[2018-04-25] MEDS: Potassium Chloride 20 mEq 100 ML IV SCH ×2 (09:55→11:39)
--- NOTE | 2018-04-25 10:15 | CARD ---
APPROVED REPORT EKG Measurement Heart [id number] <Conclusion> Normal sinus rhythm Possible Left atrial enlargement Left ventricular hypertrophy Nonspecific T wave abnormality Abnormal ECG
--- NOTE | 2018-04-25 10:33 | CARD ---
APPROVED REPORT EKG Measurement Heart [id number] <Conclusion> Normal sinus rhythm Left atrial enlargement Left axis deviation Left ventricular hypertrophy with repolarization abnormality Abnormal ECG
[2018-04-25] MEDS ORDERED: Azithromycin 500 MG in Sodium Chloride 0.9% 250 ML IVPB SCH (10:45)
--- NOTE | 2018-04-25 11:16 | CP.PCM.PN ---
Subjective - Date & Time of Evaluation Date of Evaluation: 04/25/18 Time of Evaluation: 11:14 - Subjective Subjective: Pt was admitted for dyspnea and chest discomfort overnight. Pt seen and examined by bedside this AM. Pt states that her breathing has improved since admission. Endorsing mild chest pain in R thoracic area, pain only with cough. Pt remains afebrile. Objective - Vital Signs/Intake and Output Vital Signs (last 24 hours): Temp Pulse Resp BP Pulse Ox 98.3 F 74 20 173/72 H 94 L 04/25/18 08:08 04/25/18 08:08 04/25/18 08:08 04/25/18 08:08 04/25/18 08:08 - Medications Medications: Current Medications Albuterol/Ipratropium (Duoneb 3 Mg/0.5 Mg (3 Ml) Ud) 3 ml INH RQ4 [facility] Last Admin: 04/25/18 08:02 Dose: 3 ml Aspirin (Aspirin) 325 mg PO ONCE STA Stop: 04/24/18 21:01 Last Admin: 04/24/18 21:23 Dose: Not Given Dextrose (Dextrose 50% Inj) 0 ml IV STAT PRN; Protocol PRN Reason: Hypoglycemia Protocol Dextrose (Glutose 15) 0 gm PO ONCE PRN; Protocol PRN Reason: Hypoglycemia Protocol Enalapril Maleate (Vasotec) 10 mg PO DAILY [facility] Last Admin: 04/25/18 09:00 Dose: 10 mg Enoxaparin Sodium (Lovenox) 40 mg SC DAILY [facility] PRN Reason: Protocol Last Admin: 04/25/18 09:00 Dose: 40 mg Glipizide (Glucotrol Xl) 5 mg PO DAILY [facility] Last Admin: 04/25/18 09:00 Dose: 5 mg Glucagon (Glucagen Diagnostic Kit) 0 mg IM STAT PRN; Protocol PRN Reason: Hypoglycemia Protocol Hydrochlorothiazide (Hydrodiuril) 25 mg PO DAILY [facility] Last Admin: 04/25/18 09:00 Dose: 25 mg Sodium Chloride (Sodium Chloride 0.9%) 1,000 mls @ 500 mls/hr IV .Q2H NESSA Last Admin: 04/24/18 19:35 Dose: 500 mls/hr Potassium Chloride (Potassium Chloride 20 Meq/100 Ml) 100 mls @ 50 mls/hr IV Q2 NESSA Stop: 04/25/18 13:59 Last Admin: 04/25/18 09:55 Dose: 50 mls/hr Azithromycin 500 mg/ Sodium (Chloride) 250 mls @ 250 mls/hr IVPB DAILY [facility] PRN Reason: Protocol Insulin Human Regular (Humulin R) 0 units SC ACHS [facility] PRN Reason: Protocol Last Admin: 04/25/18 06:34 Dose: 1 unit Metformin HCl (Glucophage) 500 mg PO BIDWM [facility] Last Admin: 04/25/18 09:00 Dose: 500 mg Metoprolol Tartrate (Lopressor) 25 mg PO Q12H [facility] Last Admin: 04/25/18 00:28 Dose: 25 mg Mirtazapine (Remeron) 15 mg PO HS [facility] Nicotine (Nicoderm Cq) 1 patch TD DAILY [facility] Last Admin: 04/25/18 09:01 Dose: 1 patch Nitroglycerin (Nitrostat Sl Tab) 0.4 mg SL Q5MIN PRN PRN Reason: chest pain Pravastatin Sodium (Pravachol) 40 mg PO DAILY [facility] Last Admin: 04/25/18 09:20 Dose: 40 mg Prednisolone (Prednisolone Oral Soln) 60 mg PO DAILY [facility] Last Admin: 04/25/18 09:20 Dose: 1 david Fluticasone/Salmeterol (Advair Diskus 250/50) 1 puff IH Q12 [facility] Last Admin: 04/25/18 08:59 Dose: 1 puff - Labs Labs: 04/25/18 05:07 04/25/18 05:07 PT 11.4 Seconds (9.8-13.1) 04/24/18 19:45 INR 1.0 (0.9-1.2) 04/24/18 19:45 APTT 28.1 Seconds (25.6-37.1) 04/24/18 19:45 - Constitutional Appears: No Acute Distress - Head Exam Head Exam: ATRAUMATIC, NORMOCEPHALIC - Eye Exam Eye Exam: EOMI, Normal appearance - ENT Exam ENT Exam: Mucous Membranes Moist - Neck Exam Neck Exam: Full ROM - Respiratory Exam Respiratory Exam: Clear to Ausculation Bilateral, Rhonchi, NORMAL BREATHING PATTERN. absent: Wheezes - Cardiovascular Exam Cardiovascular Exam: REGULAR RHYTHM, +S1, +S2 - GI/Abdominal Exam GI & Abdominal Exam: Soft, Normal Bowel Sounds. absent: Tenderness - Extremities Exam Extremities Exam: Full ROM. absent: Pedal Edema - Neurological Exam Neurological Exam: Alert, Awake, Oriented x3 - Psychiatric Exam Psychiatric exam: Normal Affect, Normal Mood Additional comments: Tangential - Skin Skin Exam: Dry, Intact, Normal Color, Warm Assessment and Plan - Assessment and Plan (Free Text) Assessment: Assessment/Plan: 67 YO F w/ PMH of CAD, PVD, HTN, HLD, Type 2 DM, carotid stenosis s/p endartectomy, COPD admitted for COPD exacerbation, unlikely to be ACS. Pt is a poor historian, tangential on interview this AM. Chest Pain/CAD- s/p CABG -Troponin x 3 negative -EKG : Non specific EKG changes noted. No acute ischemic event noted -unlikely to be cardiac in origin -likely 2/2 to COPD Hypokalemia -K: 2.8 -s/p PO KCl -20 meq KCl IV -F/U with AM labs COPD exacerbation -d/c Levofloxacin, will start Azithromycin 500mg daily -C/W Duoneb NESSA -C/W Prednisone 60mg daily HTN -Remains elevated today -last bp 162/69 -PO 1x dose of hydralazine 10mg -monitor vitals -continue Enalapril 10mg QD, HCTHZ 25mg QD, Metoprolol 25mg BID DM- Type II uncontrolled -Continue Metformin 500 BID -Continue Glipizie -HbA1c pending : Previous HBA1C: 7.7 on 06/2017 -Sliding scale Insulin- low dose Hx of Bipolar disorder -Tangential and scattered on exam -Psych consulted, pt endorsed to Dr. Baer -follow up recs Tobacco abuse -Nicotine Patch DVT prophylaxis -Lovenox 40mg sc
--- NOTE | 2018-04-25 15:24 | CP.PCM.CON ---
History of Present Illness - History of Present Illness History of Present Illness: Psychiatry Consult Note CC: "Sometimes I feel anxious." HPI: 67 yo female admitted w/ chest pain. She reports a h/o anxiety and difficultly sleeping and reports that she was recently taking Remeron, but states that she takes 1/4 tablet due to side effects. No acute depression/ anxiety/rosendo/psychosis/pressured speech/racing thoughts/obsessions/compulsions / impulsive behaviors/ decreased need for sleep/ AH/VH/ paranoia. PPHx: H/o anxiety, was treated w/ Remeron but reports that she was taking 1/4 of a pill (probably <7.5 mg); denies h/o bipolar disorder, denies h/o psychiatric hospitalizations. PMHx: CAD, PVD, HTN, HLD, Type II DM, Carotid Stenosis, COPD PSHx: CABG-2013 x 4, Carotid Enderectomy Social Hx: Lives alone; No drugs/etoh FHx: Brother committed suicide ALL: Codeine, Meperidine, Naproxen MSE: A + O x 3, calm, cooperative, no acute distress, speech normal rate, rhythm , volume; good eye contact, thought process- coherent, circumstantial at times; thought content- no delusions; no AH/VH/paranoia, no SI/HI, fair I/J; good impulse control Impression: 67 female w/ reported history of anxiety, denies current symptoms of depression/anxiety/rosendo/paranoia/psychosis. -No acute inpatient psychiatric admission or medications indicated at this -Recommend primary team call patient's son for additional collateral history -Patient may benefit from neuropsych testing (Psychology consult) to rule out dementia Past Patient History - Past Medical History & Family History Past Medical History?: Yes - Past Social History Alcohol: None Drugs: Denies - CARDIAC Hx Hypercholesterolemia: Yes Hx Hypertension: Yes Hx Pacemaker: No - PULMONARY Hx Chronic Obstructive Pulmonary Disease (COPD): Yes - NEUROLOGICAL Hx Dementia: Yes - HEENT Hx HEENT Problems: No - RENAL Hx Chronic Kidney Disease: No - ENDOCRINE/METABOLIC Hx Endocrine Disorders: Yes - HEMATOLOGICAL/ONCOLOGICAL Hx Blood Transfusions: No Hx Blood Transfusion Reaction: No - INTEGUMENTARY Hx Dermatological Problems: No - MUSCULOSKELETAL/RHEUMATOLOGICAL Hx Musculoskeletal Disorders: No - GASTROINTESTINAL Hx Gastrointestinal Disorders: No - GENITOURINARY/GYNECOLOGICAL Hx Genitourinary Disorders: No - PSYCHIATRIC Hx Psychophysiologic Disorder: No Hx Substance Use: No - SURGICAL HISTORY Hx Carotid Endarterectomy: Yes Hx Coronary Artery Bypass Graft: Yes - ANESTHESIA Hx Anesthesia: Yes Hx Anesthesia Reactions: No Hx Malignant Hyperthermia: No Meds Allergies/Adverse Reactions: Allergies Allergy/AdvReac Type Severity Reaction Status Date / Time codeine Allergy RASH Verified 04/24/18 18:34 meperidine Allergy RASH Verified 04/24/18 18:34 naproxen Allergy RASH Verified 04/24/18 18:34 - Medications Medications: Current Medications Albuterol/Ipratropium (Duoneb 3 Mg/0.5 Mg (3 Ml) Ud) 3 ml INH RQ4 [facility] Last Admin: 04/25/18 11:27 Dose: 3 ml Azithromycin (Zithromax) 500 mg PO DAILY [facility] PRN Reason: Protocol Dextrose (Dextrose 50% Inj) 0 ml IV STAT PRN; Protocol PRN Reason: Hypoglycemia Protocol Dextrose (Glutose 15) 0 gm PO ONCE PRN; Protocol PRN Reason: Hypoglycemia Protocol Enalapril Maleate (Vasotec) 10 mg PO DAILY [facility] Last Admin: 04/25/18 09:00 Dose: 10 mg Enoxaparin Sodium (Lovenox) 40 mg SC DAILY [facility] PRN Reason: Protocol Last Admin: 04/25/18 09:00 Dose: 40 mg Glipizide (Glucotrol Xl) 5 mg PO DAILY [facility] Last Admin: 04/25/18 09:00 Dose: 5 mg Glucagon (Glucagen Diagnostic Kit) 0 mg IM STAT PRN; Protocol PRN Reason: Hypoglycemia Protocol Hydrochlorothiazide (Hydrodiuril) 25 mg PO DAILY [facility] Last Admin: 04/25/18 09:00 Dose: 25 mg Sodium Chloride (Sodium Chloride 0.9%) 1,000 mls @ 500 mls/hr IV .Q2H [facility] Last Admin: 04/24/18 19:35 Dose: 500 mls/hr Insulin Human Regular (Humulin R) 0 units SC ACHS [facility] PRN Reason: Protocol Last Admin: 04/25/18 11:37 Dose: 2 unit Metformin HCl (Glucophage) 500 mg PO BIDWM [facility] Last Admin: 04/25/18 09:00 Dose: 500 mg Metoprolol Tartrate (Lopressor) 25 mg PO Q12H [facility] Last Admin: 04/25/18 11:38 Dose: 25 mg Mirtazapine (Remeron) 15 mg PO HS [facility] Nicotine (Nicoderm Cq) 1 patch TD DAILY [facility] Last Admin: 04/25/18 09:01 Dose: 1 patch Nitroglycerin (Nitrostat Sl Tab) 0.4 mg SL Q5MIN PRN PRN Reason: chest pain Potassium Chloride (K-Dur 20 Meq Er Tab) 40 meq PO DAILY [facility] Pravastatin Sodium (Pravachol) 40 mg PO DAILY [facility] Last Admin: 04/25/18 09:20 Dose: 40 mg Prednisolone (Prednisolone Oral Soln) 60 mg PO DAILY [facility] Last Admin: 04/25/18 09:20 Dose: 1 david Saliva Substitute (Caphosol 15 Ml) 15 ml MM QID [facility] Fluticasone/Salmeterol (Advair Diskus 250/50) 1 puff IH Q12 [facility] Last Admin: 04/25/18 08:59 Dose: 1 puff Results - Vital Signs Recent Vital Signs: Last Vital Signs Temp 98.5 F 04/25/18 12:40 Pulse 75 04/25/18 14:33 Resp 18 04/25/18 12:40 BP 162/69 H 04/25/18 14:33 Pulse Ox 94 L 04/25/18 12:40 - Labs Result Diagrams: 04/25/18 05:07 04/25/18 05:07 Labs: Laboratory Results - last 24 hr 04/24/18 04/24/18 04/24/18 19:25 19:45 19:45 WBC 9.8 RBC 5.07 Hgb 15.0 Hct 43.5 MCV 85.8 MCH 29.6 MCHC 34.5 RDW 14.1 Plt Count 338 MPV 8.3 Neut % (Auto) 77.8 H Lymph % (Auto) 12.0 L [place] % (Auto) 8.9 Eos % (Auto) 0.3 Baso % (Auto) 1.0 Neut # (Auto) 7.6 H Lymph # (Auto) 1.2 [place] # (Auto) 0.9 H Eos # (Auto) 0.0 Baso # (Auto) 0.1 PT INR APTT pCO2 51 H pO2 60 L HCO3 36.0 H ABG pH 7.50 H ABG Total CO2 41.4 H ABG O2 Saturation 98.1 H ABG Base Excess 14.3 H Kaden Test Yes ABG Potassium 2.5 L* A-a O2 Difference 76.0 Sodium 137.0 137 Chloride 95.0 L 93 L Glucose 303 H Lactate 0.8 Vent Mode N/c FiO2 28.0 Crit Value Called To Tay patel md Crit Value Called By [id number] Crit Value Read Back Y Blood Gas Notified Time 193 Potassium 2.6 L Carbon Dioxide 36 H Anion Gap 11 BUN 12 Creatinine 0.6 L Est GFR ( Amer) > 60 Est GFR (Non-Af Amer) > 60 POC Glucose (mg/dL) Random Glucose 291 H Hemoglobin A1c Calcium 9.5 Phosphorus 2.4 L Magnesium 1.6 Total Bilirubin 0.6 AST 14 ALT 27 Alkaline Phosphatase 79 Troponin I 0.0200 NT-Pro-B Natriuret Pep 711 Total Protein 7.0 Albumin 3.7 Globulin 3.4 Albumin/Globulin Ratio 1.1 Triglycerides Cholesterol LDL Cholesterol Direct HDL Cholesterol Lipase Arterial Blood Potassium 2.5 L* Urine Color Urine Clarity Urine pH Ur Specific [place] Urine Protein Urine Glucose (UA) Urine Ketones Urine Blood Urine Nitrate Urine Bilirubin Urine Urobilinogen Ur Leukocyte Esterase Urine RBC (Auto) Urine Microscopic WBC Ur Squamous Epith Cells Urine Bacteria Influenza Typ A,B (EIA) 04/24/18 04/24/18 04/24/18 19:45 19:45 21:41 WBC RBC Hgb Hct MCV MCH MCHC RDW Plt Count MPV Neut % (Auto) Lymph % (Auto) [place] % (Auto) Eos % (Auto) Baso % (Auto) Neut # (Auto) Lymph # (Auto) [place] # (Auto) Eos # (Auto) Baso # (Auto) PT 11.4 INR 1.0 APTT 28.1 pCO2 pO2 HCO3 ABG pH ABG Total CO2 ABG O2 Saturation ABG Base Excess Kaden Test ABG Potassium A-a O2 Difference Sodium Chloride Glucose Lactate Vent Mode FiO2 Crit Value Called To Crit Value Called By Crit Value Read Back Blood Gas Notified Time Potassium Carbon Dioxide Anion Gap BUN Creatinine Est GFR ( Amer) Est GFR (Non-Af Amer) POC Glucose (mg/dL) 231 H Random Glucose Hemoglobin A1c Calcium Phosphorus Magnesium Total Bilirubin AST ALT Alkaline Phosphatase Troponin I NT-Pro-B Natriuret Pep Total Protein Albumin Globulin Albumin/Globulin Ratio Triglycerides Cholesterol LDL Cholesterol Direct HDL Cholesterol Lipase Arterial Blood Potassium Urine Color Urine Clarity Urine pH Ur Specific [place] Urine Protein Urine Glucose (UA) Urine Ketones Urine Blood Urine Nitrate Urine Bilirubin Urine Urobilinogen Ur Leukocyte Esterase Urine RBC (Auto) Urine Microscopic WBC Ur Squamous Epith Cells Urine Bacteria Influenza Typ A,B (EIA) Negative for flu a/b 04/24/18 04/25/18 04/25/18 22:36 01:30 05:07 WBC RBC Hgb Hct MCV MCH MCHC RDW Plt Count MPV Neut % (Auto) Lymph % (Auto) [place] % (Auto) Eos % (Auto) Baso % (Auto) Neut # (Auto) Lymph # (Auto) [place] # (Auto) Eos # (Auto) Baso # (Auto) PT INR APTT pCO2 pO2 HCO3 ABG pH ABG Total CO2 ABG O2 Saturation ABG Base Excess Kaden Test ABG Potassium A-a O2 Difference Sodium 143 Chloride 99 Glucose Lactate Vent Mode FiO2 Crit Value Called To Crit Value Called By Crit Value Read Back Blood Gas Notified Time Potassium 2.8 L Carbon Dioxide 37 H Anion Gap 10 BUN 8 Creatinine 0.5 L Est GFR ( Amer) > 60 Est GFR (Non-Af Amer) > 60 POC Glucose (mg/dL) Random Glucose 176 H Hemoglobin A1c Calcium 9.5 Phosphorus Magnesium Total Bilirubin 0.5 AST 12 L ALT 24 Alkaline Phosphatase 62 Troponin I 0.0270 NT-Pro-B Natriuret Pep Total Protein 6.7 Albumin 3.4 L Globulin 3.3 Albumin/Globulin Ratio 1.0 Triglycerides 115 Cholesterol 186 LDL Cholesterol Direct 139 H HDL Cholesterol 28 L Lipase 40 Arterial Blood Potassium Urine Color Yellow Urine Clarity Slighty-cloudy Urine pH 7.0 Ur Specific [place] 1.010 Urine Protein 100 Urine Glucose (UA) >=500 Urine Ketones Negative Urine Blood Negative Urine Nitrate Negative Urine Bilirubin Negative Urine Urobilinogen 4.0 H Ur Leukocyte Esterase Neg Urine RBC (Auto) 2 Urine Microscopic WBC 4 Ur Squamous Epith Cells 4 Urine Bacteria Rare Influenza Typ A,B (EIA) 04/25/18 04/25/18 04/25/18 05:07 05:07 05:41 WBC 9.0 RBC 5.14 Hgb 15.3 Hct 44.9 MCV 87.4 MCH 29.7 MCHC 34.0 RDW 13.9 Plt Count 322 MPV 8.3 Neut % (Auto) 69.5 Lymph % (Auto) 18.4 L [place] % (Auto) 10.6 H Eos % (Auto) 0.7 Baso % (Auto) 0.8 Neut # (Auto) 6.3 Lymph # (Auto) 1.7 [place] # (Auto) 1.0 H Eos # (Auto) 0.1 Baso # (Auto) 0.1 PT INR APTT pCO2 pO2 HCO3 ABG pH ABG Total CO2 ABG O2 Saturation ABG Base Excess Kaden Test ABG Potassium A-a O2 Difference Sodium Chloride Glucose Lactate Vent Mode FiO2 Crit Value Called To Crit Value Called By Crit Value Read Back Blood Gas Notified Time Potassium Carbon Dioxide Anion Gap BUN Creatinine Est GFR ( Amer) Est GFR (Non-Af Amer) POC Glucose (mg/dL) 176 H Random Glucose Hemoglobin A1c 9.0 H Calcium Phosphorus Magnesium Total Bilirubin AST ALT Alkaline Phosphatase Troponin I NT-Pro-B Natriuret Pep Total Protein Albumin Globulin Albumin/Globulin Ratio Triglycerides Cholesterol LDL Cholesterol Direct HDL Cholesterol Lipase Arterial Blood Potassium Urine Color Urine Clarity Urine pH Ur Specific [place] Urine Protein Urine Glucose (UA) Urine Ketones Urine Blood Urine Nitrate Urine Bilirubin Urine Urobilinogen Ur Leukocyte Esterase Urine RBC (Auto) Urine Microscopic WBC Ur Squamous Epith Cells Urine Bacteria Influenza Typ A,B (EIA) 04/25/18 04/25/18 09:55 10:55 WBC RBC Hgb Hct MCV MCH MCHC RDW Plt Count MPV Neut % (Auto) Lymph % (Auto) [place] % (Auto) Eos % (Auto) Baso % (Auto) Neut # (Auto) Lymph # (Auto) [place] # (Auto) Eos # (Auto) Baso # (Auto) PT INR APTT pCO2 pO2 HCO3 ABG pH ABG Total CO2 ABG O2 Saturation ABG Base Excess Kaden Test ABG Potassium A-a O2 Difference Sodium Chloride Glucose Lactate Vent Mode FiO2 Crit Value Called To Crit Value Called By Crit Value Read Back Blood Gas Notified Time Potassium Carbon Dioxide Anion Gap BUN Creatinine Est GFR ( Amer) Est GFR (Non-Af Amer) POC Glucose (mg/dL) 213 H Random Glucose Hemoglobin A1c Calcium Phosphorus Magnesium Total Bilirubin AST ALT Alkaline Phosphatase Troponin I 0.0290 NT-Pro-B Natriuret Pep Total Protein Albumin Globulin Albumin/Globulin Ratio Triglycerides Cholesterol LDL Cholesterol Direct HDL Cholesterol Lipase Arterial Blood Potassium Urine Color Urine Clarity Urine pH Ur Specific [place] Urine Protein Urine Glucose (UA) Urine Ketones Urine Blood Urine Nitrate Urine Bilirubin Urine Urobilinogen Ur Leukocyte Esterase Urine RBC (Auto) Urine Microscopic WBC Ur Squamous Epith Cells Urine Bacteria Influenza Typ A,B (EIA)
[2018-04-25] MEDS: Saliva Substitute(Caphosol) 15 ML SOL MM SCH ×3 (15:47→21:54)
[2018-04-25] MEDS: Potassium Chloride 20 mEq ER Tab PO SCH (15:47)
[2018-04-25 17:42] LABS: BLOOD UREA NITROGEN 10 mg/dl (7-17); CALCIUM 9.7 mg/dL (8.4-10.2); GFR AFRICAN-AMERICAN > 60; GFR NON-AFRICAN AMERICAN > 60
[2018-04-25] MEDS: Sodium Chloride 0.9% 1,000 ML IV SCH ×2 (21:58→21:59)
[2018-04-26] MEDS: Sodium Chloride 0.9% 1,000 ML IV SCH ×5 (01:43→22:19)
[2018-04-26] MEDS: Albuterol-Ipratrop 3 mg / 0.5 (3 ml) UD INH SCH ×6 (05:08→23:15)
[2018-04-26 05:59] LABS: ALB/GLOB RATIO 1.1 (1.0-2.1); ALBUMIN 3.4 g/dL (3.5-5.0); ALT/SGPT 18 U/L (9-52); AST/SGOT 15 U/L (14-36); BLOOD UREA NITROGEN 13 mg/dl (7-17); CALCIUM 10.4 mg/dL (8.4-10.2); GFR AFRICAN-AMERICAN > 60; GFR NON-AFRICAN AMERICAN > 60
[2018-04-26] MEDS: Saliva Substitute(Caphosol) 15 ML SOL MM SCH ×4 (09:02→21:52)
[2018-04-26] MEDS: Fluticasone-Salmeterol 250-50mcg Diskus IH SCH ×2 (09:02→21:53)
[2018-04-26] MEDS: Insulin Regular 100 units/ml SC SCH ×4 (09:04→22:14)
[2018-04-26] MEDS: GlipiZIDE 5 mg SR Tab PO SCH (09:04)
[2018-04-26] MEDS: Enoxaparin 40 mg Syringe SC SCH (09:05)
[2018-04-26] MEDS: Potassium Chloride 20 mEq ER Tab PO SCH (09:05)
[2018-04-26] MEDS: PrednisoLONE 15 mg/5 ml Oral Syrup (240 ml) PO SCH (09:06)
[2018-04-26] MEDS: Pravastatin Sodium 40 MG TAB PO SCH (09:09)
[2018-04-26] MEDS ORDERED: Potassium Chloride 20 mEq ER Tab PO ONE (10:04)
--- NOTE | 2018-04-26 10:08 | CP.PCM.DIS ---
Provider - Provider Date of Admission: 04/24/18 21:05 Attending physician: Germania Honeycutt MD Time Spent in preparation of Discharge (in minutes): 20 Hospital Course - Lab Results Lab Results: Micro Results 04/25/18 01:30 Urine,Clean Catch Urine Culture - Final No Growth (<1,000 CFU/ML) 04/24/18 20:14 Blood Blood Culture - Preliminary NO GROWTH AFTER 24 HOURS 04/24/18 19:45 Blood Blood Culture - Preliminary NO GROWTH AFTER 24 HOURS Most Recent Lab Values WBC 9.0 K/uL (4.8-10.8) 04/25/18 05:07 RBC 5.14 Mil/uL (3.80-5.20) 04/25/18 05:07 Hgb 15.3 g/dL (12.0-16.0) 04/25/18 05:07 Hct 44.9 % (34.0-47.0) 04/25/18 05:07 MCV 87.4 fl (81.0-99.0) 04/25/18 05:07 MCH 29.7 pg (27.0-31.0) 04/25/18 05:07 MCHC 34.0 g/dL (33.0-37.0) 04/25/18 05:07 RDW 13.9 % (11.5-14.5) 04/25/18 05:07 Plt Count 322 K/uL (130-400) 04/25/18 05:07 MPV 8.3 fl (7.2-11.7) 04/25/18 05:07 Neut % (Auto) 69.5 % (50.0-75.0) 04/25/18 05:07 Lymph % (Auto) 18.4 % (20.0-40.0) L 04/25/18 05:07 [place] % (Auto) 10.6 % (0.0-10.0) H 04/25/18 05:07 Eos % (Auto) 0.7 % (0.0-4.0) 04/25/18 05:07 Baso % (Auto) 0.8 % (0.0-2.0) 04/25/18 05:07 Neut # (Auto) 6.3 K/uL (1.8-7.0) 04/25/18 05:07 Lymph # (Auto) 1.7 K/uL (1.0-4.3) 04/25/18 05:07 [place] # (Auto) 1.0 K/uL (0.0-0.8) H 04/25/18 05:07 Eos # (Auto) 0.1 K/uL (0.0-0.7) 04/25/18 05:07 Baso # (Auto) 0.1 K/uL (0.0-0.2) 04/25/18 05:07 PT 11.4 Seconds (9.8-13.1) 04/24/18 19:45 INR 1.0 (0.9-1.2) 04/24/18 19:45 APTT 28.1 Seconds (25.6-37.1) 04/24/18 19:45 pCO2 51 mm/Hg (35-45) H 04/24/18 19:25 pO2 60 mm/Hg (80-100) L 04/24/18 19:25 HCO3 36.0 mmol/L (21-28) H 04/24/18 19:25 ABG pH 7.50 (7.35-7.45) H 04/24/18 19:25 ABG Total CO2 41.4 mmol/L (22-28) H 04/24/18 19:25 ABG O2 Saturation 98.1 % (95-98) H 04/24/18 19:25 ABG Base Excess 14.3 mmol/L (-2.0-3.0) H 04/24/18 19:25 Kaden Test Yes 04/24/18 19:25 ABG Potassium 2.5 mmol/L (3.6-5.2) L* 04/24/18 19:25 A-a O2 Difference 76.0 mm/Hg 04/24/18 19:25 Sodium 137.0 mmol/L (132-148) 04/24/18 19:25 Chloride 95.0 mmol/L (98-107) L 04/24/18 19:25 Glucose 303 mg/dL (65-105) H 04/24/18 19:25 Lactate 0.8 mmol/L (0.7-2.1) 04/24/18 19:25 Vent Mode N/c 04/24/18 19:25 FiO2 28.0 % 04/24/18 19:25 Crit Value Called To Tay patel md 04/24/18 19:25 Crit Value Called By [id number] 04/24/18 19:25 Crit Value Read Back Y 04/24/18 19:25 Blood Gas Notified Time 193804/24/18 19:25 Sodium 140 mmol/l (132-148) 04/26/18 05:02 Potassium 3.4 MMOL/L (3.6-5.0) L 04/26/18 05:02 Chloride 96 mmol/L (98-107) L 04/26/18 05:02 Carbon Dioxide 35 mmol/L (22-30) H 04/26/18 05:02 Anion Gap 12 (10-20) 04/26/18 05:02 BUN 13 mg/dl (7-17) 04/26/18 05:02 Creatinine 0.6 mg/dl (0.7-1.2) L 04/26/18 05:02 Est GFR ( Amer) > 60 04/26/18 05:02 Est GFR (Non-Af Amer) > 60 04/26/18 05:02 POC Glucose (mg/dL) 145 mg/dL (65-110) H 04/26/18 05:15 Random Glucose 160 mg/dL (65-105) H 04/26/18 05:02 Hemoglobin A1c 9.0 % (4.2-6.5) H 04/25/18 05:07 Calcium 10.4 mg/dL (8.4-10.2) H 04/26/18 05:02 Phosphorus 2.4 mg/dl (2.5-4.5) L 04/24/18 19:45 Magnesium 1.6 MG/DL (1.6-2.3) 04/24/18 19:45 Total Bilirubin 0.4 mg/dl (0.2-1.3) 04/26/18 05:02 AST 15 U/L (14-36) 04/26/18 05:02 ALT 18 U/L (9-52) 04/26/18 05:02 Alkaline Phosphatase 57 U/L (38-126) 04/26/18 05:02 Troponin I 0.0290 ng/mL (0.00-0.120) 04/25/18 09:55 NT-Pro-B Natriuret Pep 711 pg/ml (0-900) 04/24/18 19:45 Total Protein 6.5 G/DL (6.3-8.2) 04/26/18 05:02 Albumin 3.4 g/dL (3.5-5.0) L 04/26/18 05:02 Globulin 3.1 gm/dL (2.2-3.9) 04/26/18 05:02 Albumin/Globulin Ratio 1.1 (1.0-2.1) 04/26/18 05:02 Triglycerides 115 mg/DL (0-149) 04/25/18 05:07 Cholesterol 186 mg/dL (0-199) 04/25/18 05:07 LDL Cholesterol Direct 139 mg/dL (0-129) H 04/25/18 05:07 HDL Cholesterol 28 MG/DL (30-70) L 04/25/18 05:07 Lipase 40 U/L (23-300) 04/24/18 22:36 Arterial Blood Potassium 2.5 mmol/L (3.6-5.2) L* 04/24/18 19:25 Urine Color Yellow (YELLOW) 04/25/18 01:30 Urine Clarity Slighty-cloudy (Clear) 04/25/18 01:30 Urine pH 7.0 (5.0-8.0) 04/25/18 01:30 Ur Specific [place] 1.010 (1.003-1.030) 04/25/18 01:30 Urine Protein 100 mg/dL (NEGATIVE) 04/25/18 01:30 Urine Glucose (UA) >=500 mg/dL (Normal) 04/25/18 01:30 Urine Ketones Negative mg/dL (NEGATIVE) 04/25/18 01:30 Urine Blood Negative (NEGATIVE) 04/25/18 01:30 Urine Nitrate Negative (NEGATIVE) 04/25/18 01:30 Urine Bilirubin Negative (NEGATIVE) 04/25/18 01:30 Urine Urobilinogen 4.0 mg/dL (0.2-1.0) H 04/25/18 01:30 Ur Leukocyte Esterase Neg [place]/uL (Negative) 04/25/18 01:30 Urine RBC (Auto) 2 /hpf (0-3) 04/25/18 01:30 Urine Microscopic WBC 4 /hpf (0-5) 04/25/18 01:30 Ur Squamous Epith Cells 4 /hpf (0-5) 04/25/18 01:30 Urine Bacteria Rare (<OCC) 04/25/18 01:30 Influenza Typ A,B (EIA) Negative for flu a/b (NEGATIVE) 04/24/18 19:45 - Hospital Course Hospital Course: 67 YO Female with PMH of COPD, bipolar disorder, and Discharge Exam - Head Exam Head Exam: ATRAUMATIC, NORMOCEPHALIC Discharge Plan - Follow Up Plan Condition: FAIR Disposition: HOME/ ROUTINE
--- NOTE | 2018-04-26 10:18 | CP.PCM.PN ---
Subjective - Date & Time of Evaluation Date of Evaluation: 04/26/18 Time of Evaluation: 10:18 - Subjective Subjective: No acute overnight events. Pt is seen and examined by bedside this morning. Pt states that she no longer has any chest discomfort, no shortness of breath. Good PO intake, ambulating and doing well otherwise. Of note, spoke to pts son this AM Theo Caitlin [phone]. Pt has dx of schizophrenia, bipolar disease, anxiety, was seen by Dr. Shearer, psychiatry in [facility] in the past. Pt failed to follow up and has not been taking any of her home meds for months. Son does not want to be involved in mother's health care, not in [place]. Objective - Vital Signs/Intake and Output Vital Signs (last 24 hours): Temp Pulse Resp BP Pulse Ox 98.5 F 99 H 18 137/71 95 04/26/18 08:06 04/26/18 08:06 04/26/18 08:06 04/26/18 08:06 04/26/18 08:06 - Medications Medications: Current Medications Albuterol/Ipratropium (Duoneb 3 Mg/0.5 Mg (3 Ml) Ud) 3 ml INH RQ4 [facility] Last Admin: 04/26/18 07:17 Dose: 3 ml Azithromycin (Zithromax) 500 mg PO DAILY [facility] PRN Reason: Protocol Last Admin: 04/26/18 09:05 Dose: 500 mg Dextrose (Dextrose 50% Inj) 0 ml IV STAT PRN; Protocol PRN Reason: Hypoglycemia Protocol Dextrose (Glutose 15) 0 gm PO ONCE PRN; Protocol PRN Reason: Hypoglycemia Protocol Enalapril Maleate (Vasotec) 10 mg PO DAILY [facility] Last Admin: 04/26/18 09:05 Dose: 10 mg Enoxaparin Sodium (Lovenox) 40 mg SC DAILY [facility] PRN Reason: Protocol Last Admin: 04/26/18 09:05 Dose: 40 mg Glipizide (Glucotrol Xl) 5 mg PO DAILY [facility] Last Admin: 04/26/18 09:04 Dose: 5 mg Glucagon (Glucagen Diagnostic Kit) 0 mg IM STAT PRN; Protocol PRN Reason: Hypoglycemia Protocol Hydrochlorothiazide (Hydrodiuril) 25 mg PO DAILY [facility] Last Admin: 04/26/18 09:04 Dose: 25 mg Sodium Chloride (Sodium Chloride 0.9%) 1,000 mls @ 500 mls/hr IV .Q2H [facility] Last Admin: 04/26/18 09:06 Dose: Not Given Insulin Human Regular (Humulin R) 0 units SC ACHS [facility] PRN Reason: Protocol Last Admin: 04/26/18 09:04 Dose: Not Given Metformin HCl (Glucophage) 500 mg PO BIDWM [facility] Last Admin: 04/26/18 09:03 Dose: 500 mg Metoprolol Tartrate (Lopressor) 25 mg PO Q12H [facility] Last Admin: 04/25/18 22:00 Dose: 25 mg Mirtazapine (Remeron) 15 mg PO HS [facility] Last Admin: 04/25/18 21:58 Dose: 15 mg Nicotine (Nicoderm Cq) 1 patch TD DAILY [facility] Last Admin: 04/25/18 09:01 Dose: 1 patch Nitroglycerin (Nitrostat Sl Tab) 0.4 mg SL Q5MIN PRN PRN Reason: chest pain Potassium Chloride (K-Dur 20 Meq Er Tab) 40 meq PO DAILY [facility] Last Admin: 04/26/18 09:05 Dose: 40 meq Pravastatin Sodium (Pravachol) 40 mg PO DAILY [facility] Last Admin: 04/26/18 09:09 Dose: 40 mg Prednisolone (Prednisolone Oral Soln) 60 mg PO DAILY [facility] Last Admin: 04/26/18 09:06 Dose: 60 mg Saliva Substitute (Caphosol 15 Ml) 15 ml MM QID [facility] Last Admin: 04/26/18 09:02 Dose: 15 ml Fluticasone/Salmeterol (Advair Diskus 250/50) 1 puff IH Q12 [facility] Last Admin: 04/26/18 09:02 Dose: 1 puff - Labs Labs: 04/25/18 05:07 04/26/18 05:02 PT 11.4 Seconds (9.8-13.1) 04/24/18 19:45 INR 1.0 (0.9-1.2) 04/24/18 19:45 APTT 28.1 Seconds (25.6-37.1) 04/24/18 19:45 - Constitutional Appears: No Acute Distress - Head Exam Head Exam: ATRAUMATIC, NORMOCEPHALIC - Eye Exam Eye Exam: EOMI, Normal appearance - ENT Exam ENT Exam: Mucous Membranes Moist - Respiratory Exam Respiratory Exam: Clear to Ausculation Bilateral, NORMAL BREATHING PATTERN. absent: Wheezes - Cardiovascular Exam Cardiovascular Exam: REGULAR RHYTHM, +S1, +S2 Additional comments: old vertical healed CABG scar - GI/Abdominal Exam GI & Abdominal Exam: Soft, Normal Bowel Sounds. absent: Tenderness - Neurological Exam Neurological Exam: Alert, Awake - Skin Skin Exam: Dry, Normal Color, Warm Assessment and Plan - Assessment and Plan (Free Text) Assessment: Assessment/Plan: 67 YO F w/ PMH of CAD, PVD, HTN, HLD, Type 2 DM, carotid stenosis s/p endartectomy, COPD admitted for COPD exacerbation, unlikely to be ACS. Of note pt was found to have hypokalemia on blood work. Pt is a poor historian, manipulative. Additional hx was obtained from son this AM, Darian Tucker. Pt had additional dx of bipolar disease, schizophrenia and anxiety; was on meds in the past but stopped taking her medications. Chest Pain/CAD- s/p CABG -resolved -Troponin x 3 negative -EKG : Non specific EKG changes noted. No acute ischemic event noted -unlikely to be cardiac in origin -likely 2/2 to COPD Hypokalemia -Improving K 3.4 today -s/p PO KCl, and 20 meq KCl IV -40 meq KCL today COPD exacerbation -improving -c/w Azithromycin 500mg daily -c/w Duoneb [facility] -c/w Prednisone 60mg daily D2/5 HTN -stable -last bp 137/71 -c/w Enalapril 10mg QD, HCTHZ 25mg QD, Metoprolol 25mg BID DM- Type II uncontrolled -c/w Metformin 500 BID and Glipizie 5mg daily -HbA1c 9 (04/25/18) : Previous HBA1C: 7.7 on 06/2017 -Sliding scale Insulin; low dose Hx of Bipolar disorder, schizophrenia, anxiety -Tangential and scattered on exam -Psych consulted, pt endorsed to Dr. Baer, Dr. Horan -follow up psych recs Tobacco abuse -Nicotine Patch DVT prophylaxis -Lovenox 40mg sc
--- NOTE | 2018-04-26 10:33 | CP.PCM.CON ---
History of Present Illness - History of Present Illness History of Present Illness: This is a 67 yr old female who was intially seen by dr bennett for anxiety disorder but reconsulted today as family found more info about her history of schizoaffective/bipolar disorder and prescribed psychotropic meds .in past by dr aguayo in [facility] many years ago but has not been on any meds and as per son pt does not want to be involved with her care with a psychiatrist and son does not want to be involved in her care anymore.pt is somewhat paranoid towards the senior mortgage underwriter and says she will be better off seeing another doctor as i am asking too many questions and pt minimises her psych issues and denies any need to see a psychiatrist.pt is not presenting with any rosendo/hypomania/ hallucinations/delusions. Past Patient History - Past Medical History & Family History Past Medical History?: Yes - Past Social History Alcohol: None Drugs: Denies - CARDIAC Hx Hypercholesterolemia: Yes Hx Hypertension: Yes Hx Pacemaker: No - PULMONARY Hx Chronic Obstructive Pulmonary Disease (COPD): Yes - NEUROLOGICAL Hx Dementia: Yes - HEENT Hx HEENT Problems: No - RENAL Hx Chronic Kidney Disease: No - ENDOCRINE/METABOLIC Hx Endocrine Disorders: Yes - HEMATOLOGICAL/ONCOLOGICAL Hx Blood Transfusions: No Hx Blood Transfusion Reaction: No - INTEGUMENTARY Hx Dermatological Problems: No - MUSCULOSKELETAL/RHEUMATOLOGICAL Hx Musculoskeletal Disorders: No - GASTROINTESTINAL Hx Gastrointestinal Disorders: No - GENITOURINARY/GYNECOLOGICAL Hx Genitourinary Disorders: No - PSYCHIATRIC Hx Psychophysiologic Disorder: No Hx Substance Use: No - SURGICAL HISTORY Hx Carotid Endarterectomy: Yes Hx Coronary Artery Bypass Graft: Yes - ANESTHESIA Hx Anesthesia: Yes Hx Anesthesia Reactions: No Hx Malignant Hyperthermia: No Meds Allergies/Adverse Reactions: Allergies Allergy/AdvReac Type Severity Reaction Status Date / Time codeine Allergy RASH Verified 04/24/18 18:34 meperidine Allergy RASH Verified 04/24/18 18:34 naproxen Allergy RASH Verified 04/24/18 18:34 - Medications Medications: Current Medications Albuterol/Ipratropium (Duoneb 3 Mg/0.5 Mg (3 Ml) Ud) 3 ml INH RQ4 [facility] Last Admin: 04/26/18 07:17 Dose: 3 ml Azithromycin (Zithromax) 500 mg PO DAILY [facility] PRN Reason: Protocol Last Admin: 06/02/18 09:05 Dose: 500 mg Dextrose (Dextrose 50% Inj) 0 ml IV STAT PRN; Protocol PRN Reason: Hypoglycemia Protocol Dextrose (Glutose 15) 0 gm PO ONCE PRN; Protocol PRN Reason: Hypoglycemia Protocol Enalapril Maleate (Vasotec) 10 mg PO DAILY [facility] Last Admin: 04/26/18 09:05 Dose: 10 mg Enoxaparin Sodium (Lovenox) 40 mg SC DAILY [facility] PRN Reason: Protocol Last Admin: 04/26/18 09:05 Dose: 40 mg Glipizide (Glucotrol Xl) 5 mg PO DAILY [facility] Last Admin: 04/26/18 09:04 Dose: 5 mg Glucagon (Glucagen Diagnostic Kit) 0 mg IM STAT PRN; Protocol PRN Reason: Hypoglycemia Protocol Hydrochlorothiazide (Hydrodiuril) 25 mg PO DAILY [facility] Last Admin: 04/26/18 09:04 Dose: 25 mg Sodium Chloride (Sodium Chloride 0.9%) 1,000 mls @ 500 mls/hr IV .Q2H [facility] Last Admin: 04/26/18 09:06 Dose: Not Given Insulin Human Regular (Humulin R) 0 units SC ACHS [facility] PRN Reason: Protocol Last Admin: 04/26/18 09:04 Dose: Not Given Metformin HCl (Glucophage) 500 mg PO BIDWM [facility] Last Admin: 04/26/18 09:03 Dose: 500 mg Metoprolol Tartrate (Lopressor) 25 mg PO Q12H [facility] Last Admin: 04/25/18 22:00 Dose: 25 mg Mirtazapine (Remeron) 15 mg PO HS [facility] Last Admin: 04/25/18 21:58 Dose: 15 mg Nicotine (Nicoderm Cq) 1 patch TD DAILY [facility] Last Admin: 04/25/18 09:01 Dose: 1 patch Nitroglycerin (Nitrostat Sl Tab) 0.4 mg SL Q5MIN PRN PRN Reason: chest pain Potassium Chloride (K-Dur 20 Meq Er Tab) 40 meq PO DAILY [facility] Last Admin: 04/26/18 09:05 Dose: 40 meq Pravastatin Sodium (Pravachol) 40 mg PO DAILY [facility] Last Admin: 04/26/18 09:09 Dose: 40 mg Prednisolone (Prednisolone Oral Soln) 60 mg PO DAILY [facility] Last Admin: 04/26/18 09:06 Dose: 60 mg Saliva Substitute (Caphosol 15 Ml) 15 ml MM QID [facility] Last Admin: 04/26/18 09:02 Dose: 15 ml Fluticasone/Salmeterol (Advair Diskus 250/50) 1 puff IH Q12 [facility] Last Admin: 04/26/18 09:02 Dose: 1 puff Physical Exam - Psychiatric Exam Psychiatric exam: Anxious Additional comments: alert,with intact cognition.mood is anxious and has paranoid ideation and guarded.pt is not exhibiting any hallucinations and delusions.thought process scattered.pt denies suicidal and homicidal ideation.pt has poor insight about her psych illness. Results - Vital Signs Recent Vital Signs: Last Vital Signs Temp 98.5 F 04/26/18 08:06 Pulse 99 H 04/26/18 08:06 Resp 18 04/26/18 08:06 BP 137/71 04/26/18 08:06 Pulse Ox 95 04/26/18 08:06 - Labs Result Diagrams: 04/25/18 05:07 04/26/18 05:02 Labs: Laboratory Results - last 24 hr 04/25/18 04/25/18 04/25/18 05:07 05:41 09:55 Sodium Potassium Chloride Carbon Dioxide Anion Gap BUN Creatinine Est GFR ( Amer) Est GFR (Non-Af Amer) POC Glucose (mg/dL) 176 H Random Glucose Hemoglobin A1c 9.0 H Calcium Total Bilirubin AST ALT Alkaline Phosphatase Troponin I 0.0290 Total Protein Albumin Globulin Albumin/Globulin Ratio 04/25/18 04/25/18 04/25/18 10:55 16:00 17:00 Sodium 137 Potassium 4.0 Chloride 97 L Carbon Dioxide 31 H Anion Gap 13 BUN 10 Creatinine 0.7 Est GFR ( Amer) > 60 Est GFR (Non-Af Amer) > 60 POC Glucose (mg/dL) 213 H 211 H Random Glucose 218 H Hemoglobin A1c Calcium 9.7 Total Bilirubin AST ALT Alkaline Phosphatase Troponin I Total Protein Albumin Globulin Albumin/Globulin Ratio 04/25/18 04/26/18 04/26/18 21:03 05:02 05:15 Sodium 140 Potassium 3.4 L Chloride 96 L Carbon Dioxide 35 H Anion Gap 12 BUN 13 Creatinine 0.6 L Est GFR ( Amer) > 60 Est GFR (Non-Af Amer) > 60 POC Glucose (mg/dL) 282 H 145 H Random Glucose 160 H Hemoglobin A1c Calcium 10.4 H Total Bilirubin 0.4 AST 15 ALT 18 Alkaline Phosphatase 57 Troponin I Total Protein 6.5 Albumin 3.4 L Globulin 3.1 Albumin/Globulin Ratio 1.1 Assessment & Plan - Assessment and Plan (Free Text) Assessment: adjustment disorder with anxiety psychotic disorder nos r/o schizoaffective disorder Plan: i have recommended risperdal 0.25 mg bid but the pt does not want any antipsychotic meds .pt only wants to take her remeron 15 mg hs.pt does not want any inpt treatment. requested paulateratomsaa salazar from son who has no info regarding her history and meds she was on nand pharmavcy was contacted and has no info.There is non contact for dr aguayo Recommend outpt follow up with [facility] and social worker school consult for placement as son does not want her to stay with him.
[2018-04-26] MEDS ORDERED: POLYETHYLENE GLYCOL 3350 17 GM/Dose PACKET PO ONE (18:12)
[2018-04-27] MEDS: Albuterol-Ipratrop 3 mg / 0.5 (3 ml) UD INH SCH ×5 (05:26→21:29)
[2018-04-27] MEDS: Sodium Chloride 0.9% 1,000 ML IV SCH ×2 (05:47→05:52)
[2018-04-27] MEDS: Insulin Regular 100 units/ml SC SCH ×4 (09:30→22:00)
[2018-04-27] MEDS: Fluticasone-Salmeterol 250-50mcg Diskus IH SCH ×2 (10:23→21:49)
[2018-04-27] MEDS: Saliva Substitute(Caphosol) 15 ML SOL MM SCH ×4 (10:24→21:49)
[2018-04-27] MEDS: GlipiZIDE 5 mg SR Tab PO SCH (10:31)
[2018-04-27] MEDS: Potassium Chloride 20 mEq ER Tab PO SCH (10:31)
[2018-04-27] MEDS: Enoxaparin 40 mg Syringe SC SCH (10:32)
[2018-04-27] MEDS: Pravastatin Sodium 40 MG TAB PO SCH (10:33)
[2018-04-27] MEDS: PrednisoLONE 15 mg/5 ml Oral Syrup (240 ml) PO SCH (10:34)
--- NOTE | 2018-04-27 11:53 | CP.PCM.PN ---
Subjective - Date & Time of Evaluation Date of Evaluation: 04/27/18 Time of Evaluation: 09:00 - Subjective Subjective: No acute overnight events. Pt is seen and examined by bedside this morning. Denies chest discomfort, no shortness of breath. Good PO intake, ambulating and doing well otherwise. Poor historian, scattered responses about home situation and psych history Objective - Vital Signs/Intake and Output Vital Signs (last 24 hours): Temp Pulse Resp BP Pulse Ox 97.9 F 69 20 138/68 95 04/27/18 08:32 04/27/18 10:32 04/27/18 08:32 04/27/18 10:32 04/27/18 08:32 - Medications Medications: Current Medications Albuterol/Ipratropium (Duoneb 3 Mg/0.5 Mg (3 Ml) Ud) 3 ml INH RQ4 [facility] Last Admin: 04/27/18 05:26 Dose: 3 ml Azithromycin (Zithromax) 500 mg PO DAILY [facility] PRN Reason: Protocol Last Admin: 04/27/18 10:36 Dose: 500 mg Dextrose (Dextrose 50% Inj) 0 ml IV STAT PRN; Protocol PRN Reason: Hypoglycemia Protocol Dextrose (Glutose 15) 0 gm PO ONCE PRN; Protocol PRN Reason: Hypoglycemia Protocol Enalapril Maleate (Vasotec) 10 mg PO DAILY [facility] Last Admin: 04/27/18 10:35 Dose: 10 mg Enoxaparin Sodium (Lovenox) 40 mg SC DAILY [facility] PRN Reason: Protocol Last Admin: 04/27/18 10:32 Dose: 40 mg Famotidine (Pepcid) 20 mg PO DAILY [facility] Last Admin: 04/27/18 10:33 Dose: 20 mg Glipizide (Glucotrol Xl) 5 mg PO DAILY [facility] Last Admin: 04/27/18 10:31 Dose: 5 mg Glucagon (Glucagen Diagnostic Kit) 0 mg IM STAT PRN; Protocol PRN Reason: Hypoglycemia Protocol Hydrochlorothiazide (Hydrodiuril) 25 mg PO DAILY [facility] Last Admin: 04/27/18 10:31 Dose: 25 mg Sodium Chloride (Sodium Chloride 0.9%) 1,000 mls @ 500 mls/hr IV .Q2H [facility] Last Admin: 04/27/18 05:52 Dose: Not Given Insulin Human Regular (Humulin R) 0 units SC ACHS [facility] PRN Reason: Protocol Last Admin: 04/27/18 10:36 Dose: 2 unit Metformin HCl (Glucophage) 500 mg PO BIDWM [facility] Last Admin: 04/27/18 10:24 Dose: 500 mg Metoprolol Tartrate (Lopressor) 25 mg PO Q12H [facility] Last Admin: 04/27/18 10:32 Dose: 25 mg Mirtazapine (Remeron) 15 mg PO HS [facility] Last Admin: 04/26/18 21:52 Dose: 15 mg Nicotine (Nicoderm Cq) 1 patch TD DAILY [facility] Last Admin: 04/27/18 10:33 Dose: 1 patch Nitroglycerin (Nitrostat Sl Tab) 0.4 mg SL Q5MIN PRN PRN Reason: chest pain Potassium Chloride (K-Dur 20 Meq Er Tab) 40 meq PO DAILY [facility] Last Admin: 04/27/18 10:31 Dose: 40 meq Pravastatin Sodium (Pravachol) 40 mg PO DAILY [facility] Last Admin: 04/27/18 10:33 Dose: 40 mg Prednisolone (Prednisolone Oral Soln) 60 mg PO DAILY [facility] Last Admin: 04/27/18 10:34 Dose: 60 mg Saliva Substitute (Caphosol 15 Ml) 15 ml MM QID [facility] Last Admin: 04/27/18 10:24 Dose: 15 ml Fluticasone/Salmeterol (Advair Diskus 250/50) 1 puff IH Q12 [facility] Last Admin: 04/27/18 10:23 Dose: 1 puff - Labs Labs: 04/25/18 05:07 04/26/18 05:02 PT 11.4 Seconds (9.8-13.1) 04/24/18 19:45 INR 1.0 (0.9-1.2) 04/24/18 19:45 APTT 28.1 Seconds (25.6-37.1) 04/24/18 19:45 - Constitutional Appears: No Acute Distress, Chronically Ill - Head Exam Head Exam: ATRAUMATIC - Eye Exam Eye Exam: EOMI - ENT Exam ENT Exam: Mucous Membranes Moist - Neck Exam Neck Exam: Full ROM - Respiratory Exam Respiratory Exam: Clear to Ausculation Bilateral. absent: Decreased Breath Sounds, Rales, Rhonchi, Respiratory Distress, Stridor - Cardiovascular Exam Cardiovascular Exam: +S1, +S2 - GI/Abdominal Exam GI & Abdominal Exam: Soft. absent: Tenderness - Neurological Exam Neurological Exam: Alert - Psychiatric Exam Additional comments: poor historian, somewhat anxious - Skin Skin Exam: Normal Color, Warm Assessment and Plan - Assessment and Plan (Free Text) Plan: 67 YO F w/ PMH of CAD, PVD, HTN, HLD, Type 2 DM, carotid stenosis s/p endartectomy, COPD admitted for COPD exacerbation, unlikely to be ACS. Of note pt was found to have hypokalemia on blood work. Pt is a poor historian, manipulative. Additional hx was obtained from son this AM, Darian Tucker. Pt had additional dx of bipolar disease, schizophrenia and anxiety; was on meds in the past but stopped taking her medications. Chest Pain/CAD- s/p CABG -resolved -Troponin x 3 negative -EKG : Non specific EKG changes noted. No acute ischemic event noted -unlikely to be cardiac in origin -likely 2/2 to COPD Hypokalemia -Improving K 3.4 today -s/p PO KCl, and 20 meq KCl IV -40 meq KCL today COPD exacerbation -improving -c/w Azithromycin 500mg daily -c/w Duoneb [facility] -c/w Prednisone 60mg daily D2/5 HTN -stable -last bp 137/71 -c/w Enalapril 10mg QD, HCTHZ 25mg QD, Metoprolol 25mg BID DM- Type II uncontrolled -c/w Metformin 500 BID and Glipizie 5mg daily -HbA1c 9 (04/25/18) : Previous HBA1C: 7.7 on 06/2017 -Sliding scale Insulin; low dose Hx of Bipolar disorder, schizophrenia, anxiety -Tangential and scattered on exam -Psych consulted, pt endorsed to Dr. Baer, Dr. Horan -follow up psych recs Tobacco abuse -Nicotine Patch DVT prophylaxis -Lovenox 40mg sc
[2018-04-28 00:16] VITALS: O2SAT 96
[2018-04-28] MEDS: Albuterol-Ipratrop 3 mg / 0.5 (3 ml) UD INH SCH ×5 (01:13→15:17)
[2018-04-28 06:35] LABS: BARBITURATES, UR NEGATIVE (NEGATIVE); BENZODIAZEPINES, UR NEGATIVE (NEGATIVE); OPIATES, UR NEGATIVE (NEGATIVE); PHENCYCLIDINE, UR NEGATIVE (NEGATIVE)
[2018-04-28] MEDS: Insulin Regular 100 units/ml SC SCH ×2 (08:12→11:52)
[2018-04-28 08:17] VITALS: TEMP 98.4
[2018-04-28 08:25] VITALS: RESP 19
[2018-04-28] MEDS: Saliva Substitute(Caphosol) 15 ML SOL MM SCH ×2 (08:28→12:00)
[2018-04-28] MEDS: Fluticasone-Salmeterol 250-50mcg Diskus IH SCH ×2 (08:28→08:35)
[2018-04-28] MEDS: Enoxaparin 40 mg Syringe SC SCH (08:30)
[2018-04-28] MEDS: Potassium Chloride 20 mEq ER Tab PO SCH (08:31)
[2018-04-28] MEDS: Pravastatin Sodium 40 MG TAB PO SCH (08:31)
[2018-04-28] MEDS: PrednisoLONE 15 mg/5 ml Oral Syrup (240 ml) PO SCH (08:33)
--- NOTE | 2018-04-28 09:43 | CP.PCM.PN ---
Subjective - Date & Time of Evaluation Date of Evaluation: 04/28/18 Time of Evaluation: 09:40 - Subjective Subjective: No acute overnight events. Pt a mild headache because she was coughing throughout the night. Denies chest pain, dyspnea, n/v/d/c, chills, fever. Objective - Vital Signs/Intake and Output Vital Signs (last 24 hours): Temp Pulse Resp BP Pulse Ox 98.4 F 66 19 151/74 H 96 04/28/18 08:24 04/28/18 08:24 04/28/18 08:24 04/28/18 08:24 04/28/18 08:24 - Medications Medications: Current Medications Albuterol/Ipratropium (Duoneb 3 Mg/0.5 Mg (3 Ml) Ud) 3 ml INH RQ4 [facility] Last Admin: 04/28/18 08:13 Dose: 3 ml Azithromycin (Zithromax) 500 mg PO DAILY [facility] PRN Reason: Protocol Last Admin: 04/28/18 08:31 Dose: 500 mg Dextrose (Dextrose 50% Inj) 0 ml IV STAT PRN; Protocol PRN Reason: Hypoglycemia Protocol Dextrose (Glutose 15) 0 gm PO ONCE PRN; Protocol PRN Reason: Hypoglycemia Protocol Enalapril Maleate (Vasotec) 10 mg PO DAILY [facility] Last Admin: 04/28/18 08:29 Dose: 10 mg Enoxaparin Sodium (Lovenox) 40 mg SC DAILY [facility] PRN Reason: Protocol Last Admin: 04/28/18 08:30 Dose: 40 mg Famotidine (Pepcid) 20 mg PO DAILY [facility] Last Admin: 04/28/18 08:30 Dose: 20 mg Glipizide (Glucotrol Xl) 5 mg PO DAILY [facility] Last Admin: 04/27/18 10:31 Dose: 5 mg Glucagon (Glucagen Diagnostic Kit) 0 mg IM STAT PRN; Protocol PRN Reason: Hypoglycemia Protocol Hydrochlorothiazide (Hydrodiuril) 25 mg PO DAILY [facility] Last Admin: 04/28/18 08:40 Dose: 25 mg Insulin Human Regular (Humulin R) 0 units SC ACHS [facility] PRN Reason: Protocol Last Admin: 04/28/18 08:12 Dose: Not Given Metformin HCl (Glucophage) 500 mg PO BIDWM [facility] Last Admin: 04/28/18 08:29 Dose: 500 mg Metoprolol Tartrate (Lopressor) 25 mg PO Q12H [facility] Last Admin: 04/27/18 21:59 Dose: 25 mg Mirtazapine (Remeron) 15 mg PO HS [facility] Last Admin: 04/27/18 21:49 Dose: 15 mg Nicotine (Nicoderm Cq) 1 patch TD DAILY [facility] Last Admin: 04/28/18 08:33 Dose: 1 patch Nitroglycerin (Nitrostat Sl Tab) 0.4 mg SL Q5MIN PRN PRN Reason: chest pain Pantoprazole Sodium (Protonix Ec Tab) 20 mg PO ONCE ONE Stop: 04/28/18 20:27 Last Admin: 04/27/18 21:49 Dose: 20 mg Potassium Chloride (K-Dur 20 Meq Er Tab) 40 meq PO DAILY [facility] Last Admin: 04/28/18 08:31 Dose: 40 meq Pravastatin Sodium (Pravachol) 40 mg PO DAILY [facility] Last Admin: 04/28/18 08:31 Dose: 40 mg Prednisolone (Prednisolone Oral Soln) 60 mg PO DAILY [facility] Last Admin: 04/28/18 08:33 Dose: 60 mg Saliva Substitute (Caphosol 15 Ml) 15 ml MM QID [facility] Last Admin: 04/28/18 08:28 Dose: 15 ml Fluticasone/Salmeterol (Advair Diskus 250/50) 1 puff IH Q12 [facility] Last Admin: 04/28/18 08:35 Dose: Not Given - Labs Labs: 04/25/18 05:07 04/26/18 05:02 PT 11.4 Seconds (9.8-13.1) 04/24/18 19:45 INR 1.0 (0.9-1.2) 04/24/18 19:45 APTT 28.1 Seconds (25.6-37.1) 04/24/18 19:45 - Constitutional Appears: No Acute Distress - Head Exam Head Exam: ATRAUMATIC, NORMAL INSPECTION - Eye Exam Eye Exam: EOMI, Normal appearance - ENT Exam ENT Exam: Mucous Membranes Moist, Normal Exam - Respiratory Exam Respiratory Exam: Clear to Ausculation Bilateral, NORMAL BREATHING PATTERN. absent: Wheezes - Cardiovascular Exam Cardiovascular Exam: REGULAR RHYTHM, +S1, +S2 - GI/Abdominal Exam GI & Abdominal Exam: Soft, Normal Bowel Sounds. absent: Tenderness - Extremities Exam Extremities Exam: Full ROM, Normal Inspection. absent: Calf Tenderness, Pedal Edema - Neurological Exam Neurological Exam: Alert, Awake, Oriented x3 - Psychiatric Exam Psychiatric exam: Normal Affect, Normal Mood - Skin Skin Exam: Dry, Intact, Normal Color, Warm Assessment and Plan - Assessment and Plan (Free Text) Assessment: Assessment/Plan: 67 YO F w/ PMH of CAD, PVD, HTN, HLD, Type 2 DM, carotid stenosis s/p endartectomy, COPD admitted for COPD exacerbation, unlikely to be ACS and hypokalemia. Pt is a poor historian, scattered. Additional hx was obtained from son this AM, Darian Tucker. additional dx of bipolar disease, schizophrenia and anxiety. Chest Pain/CAD- s/p CABG -resolved -Troponin x 3 negative -EKG : Non specific EKG changes noted. No acute ischemic event noted -unlikely to be cardiac in origin -likely 2/2 to COPD Hypokalemia -Improving K 3.4 today -s/p PO KCl, and 20 meq KCl IV -40 meq KCL today COPD exacerbation -improving -c/w Azithromycin 500mg daily -c/w Duoneb NESSA -c/w Prednisone 60mg daily D4/5 HTN -stable -c/w Enalapril 10mg QD, HCTHZ 25mg QD, Metoprolol 25mg BID DM Type II uncontrolled -c/w Metformin 500 BID and Glipizie 5mg daily -HbA1c 9 (04/25/18) : Previous HBA1C: 7.7 on 06/2017 -Sliding scale Insulin; low dose Hx of Bipolar disorder, schizophrenia, anxiety -Tangential and scattered on exam -Psych consulted, pt endorsed to Dr. Baer, Dr. Horan; recs appreciated pt refused psychotropic meds at this time Tobacco abuse -Nicotine Patch DVT prophylaxis -Lovenox 40mg sc
[2018-04-28 11:56] VITALS: BP 131/61; PULSE 90
--- NOTE | 2018-04-28 12:18 | CP.PCM.DIS ---
Provider - Provider Date of Admission: 04/24/18 21:05 Attending physician: Germania Honeycutt MD Time Spent in preparation of Discharge (in minutes): 20 Hospital Course - Lab Results Lab Results: Micro Results 04/24/18 20:14 Blood Blood Culture - Preliminary NO GROWTH AFTER 3 DAYS 04/24/18 19:45 Blood Blood Culture - Preliminary NO GROWTH AFTER 3 DAYS 04/25/18 01:30 Urine,Clean Catch Urine Culture - Final No Growth (<1,000 CFU/ML) Most Recent Lab Values WBC 9.0 K/uL (4.8-10.8) 04/25/18 05:07 RBC 5.14 Mil/uL (3.80-5.20) 04/25/18 05:07 Hgb 15.3 g/dL (12.0-16.0) 04/25/18 05:07 Hct 44.9 % (34.0-47.0) 04/25/18 05:07 MCV 87.4 fl (81.0-99.0) 04/25/18 05:07 MCH 29.7 pg (27.0-31.0) 04/25/18 05:07 MCHC 34.0 g/dL (33.0-37.0) 04/25/18 05:07 RDW 13.9 % (11.5-14.5) 04/25/18 05:07 Plt Count 322 K/uL (130-400) 04/25/18 05:07 MPV 8.3 fl (7.2-11.7) 04/25/18 05:07 Neut % (Auto) 69.5 % (50.0-75.0) 04/25/18 05:07 Lymph % (Auto) 18.4 % (20.0-40.0) L 04/25/18 05:07 [place] % (Auto) 10.6 % (0.0-10.0) H 04/25/18 05:07 Eos % (Auto) 0.7 % (0.0-4.0) 04/25/18 05:07 Baso % (Auto) 0.8 % (0.0-2.0) 04/25/18 05:07 Neut # (Auto) 6.3 K/uL (1.8-7.0) 04/25/18 05:07 Lymph # (Auto) 1.7 K/uL (1.0-4.3) 04/25/18 05:07 [place] # (Auto) 1.0 K/uL (0.0-0.8) H 04/25/18 05:07 Eos # (Auto) 0.1 K/uL (0.0-0.7) 04/25/18 05:07 Baso # (Auto) 0.1 K/uL (0.0-0.2) 04/25/18 05:07 PT 11.4 Seconds (9.8-13.1) 04/24/18 19:45 INR 1.0 (0.9-1.2) 04/24/18 19:45 APTT 28.1 Seconds (25.6-37.1) 04/24/18 19:45 pCO2 51 mm/Hg (35-45) H 04/24/18 19:25 pO2 60 mm/Hg (80-100) L 04/24/18 19:25 HCO3 36.0 mmol/L (21-28) H 04/24/18 19:25 ABG pH 7.50 (7.35-7.45) H 04/24/18 19:25 ABG Total CO2 41.4 mmol/L (22-28) H 04/24/18 19:25 ABG O2 Saturation 98.1 % (95-98) H 04/24/18 19:25 ABG Base Excess 14.3 mmol/L (-2.0-3.0) H 04/24/18 19:25 Kaden Test Yes 04/24/18 19:25 ABG Potassium 2.5 mmol/L (3.6-5.2) L* 04/24/18 19:25 A-a O2 Difference 76.0 mm/Hg 04/24/18 19:25 Sodium 137.0 mmol/L (132-148) 04/24/18 19:25 Chloride 95.0 mmol/L (98-107) L 04/24/18 19:25 Glucose 303 mg/dL (65-105) H 04/24/18 19:25 Lactate 0.8 mmol/L (0.7-2.1) 04/24/18 19:25 Vent Mode N/c 04/24/18 19:25 FiO2 28.0 % 04/24/18 19:25 Crit Value Called To Tay patel md 04/24/18 19:25 Crit Value Called By [id number] 04/24/18 19:25 Crit Value Read Back Y 04/24/18 19:25 Blood Gas Notified Time 193804/24/18 19:25 Sodium 140 mmol/l (132-148) 04/26/18 05:02 Potassium 3.4 MMOL/L (3.6-5.0) L 04/26/18 05:02 Chloride 96 mmol/L (98-107) L 04/26/18 05:02 Carbon Dioxide 35 mmol/L (22-30) H 04/26/18 05:02 Anion Gap 12 (10-20) 04/26/18 05:02 BUN 13 mg/dl (7-17) 04/26/18 05:02 Creatinine 0.6 mg/dl (0.7-1.2) L 04/26/18 05:02 Est GFR ( Amer) > 60 04/26/18 05:02 Est GFR (Non-Af Amer) > 60 04/26/18 05:02 POC Glucose (mg/dL) 81 mg/dL (65-110) 04/28/18 10:57 Random Glucose 160 mg/dL (65-105) H 04/26/18 05:02 Hemoglobin A1c 9.0 % (4.2-6.5) H 04/25/18 05:07 Calcium 10.4 mg/dL (8.4-10.2) H 04/26/18 05:02 Phosphorus 2.4 mg/dl (2.5-4.5) L 04/24/18 19:45 Magnesium 1.6 MG/DL (1.6-2.3) 04/24/18 19:45 Total Bilirubin 0.4 mg/dl (0.2-1.3) 04/26/18 05:02 AST 15 U/L (14-36) 04/26/18 05:02 ALT 18 U/L (9-52) 04/26/18 05:02 Alkaline Phosphatase 57 U/L (38-126) 04/26/18 05:02 Troponin I 0.0290 ng/mL (0.00-0.120) 04/25/18 09:55 NT-Pro-B Natriuret Pep 711 pg/ml (0-900) 04/24/18 19:45 Total Protein 6.5 G/DL (6.3-8.2) 04/26/18 05:02 Albumin 3.4 g/dL (3.5-5.0) L 04/26/18 05:02 Globulin 3.1 gm/dL (2.2-3.9) 04/26/18 05:02 Albumin/Globulin Ratio 1.1 (1.0-2.1) 04/26/18 05:02 Triglycerides 115 mg/DL (0-149) 04/25/18 05:07 Cholesterol 186 mg/dL (0-199) 04/25/18 05:07 LDL Cholesterol Direct 139 mg/dL (0-129) H 04/25/18 05:07 HDL Cholesterol 28 MG/DL (30-70) L 04/25/18 05:07 Lipase 40 U/L (23-300) 04/24/18 22:36 Arterial Blood Potassium 2.5 mmol/L (3.6-5.2) L* 04/24/18 19:25 Urine Color Yellow (YELLOW) 04/25/18 01:30 Urine Clarity Slighty-cloudy (Clear) 04/25/18 01:30 Urine pH 7.0 (5.0-8.0) 04/25/18 01:30 Ur Specific Antoine 1.010 (1.003-1.030) 04/25/18 01:30 Urine Protein 100 mg/dL (NEGATIVE) 04/25/18 01:30 Urine Glucose (UA) >=500 mg/dL (Normal) 04/25/18 01:30 Urine Ketones Negative mg/dL (NEGATIVE) 04/25/18 01:30 Urine Blood Negative (NEGATIVE) 04/25/18 01:30 Urine Nitrate Negative (NEGATIVE) 04/25/18 01:30 Urine Bilirubin Negative (NEGATIVE) 04/25/18 01:30 Urine Urobilinogen 4.0 mg/dL (0.2-1.0) H 04/25/18 01:30 Ur Leukocyte Esterase Neg [place]/uL (Negative) 04/25/18 01:30 Urine RBC (Auto) 2 /hpf (0-3) 04/25/18 01:30 Urine Microscopic WBC 4 /hpf (0-5) 04/25/18 01:30 Ur Squamous Epith Cells 4 /hpf (0-5) 04/25/18 01:30 Urine Bacteria Rare (<OCC) 04/25/18 01:30 Urine Opiates Screen Negative (NEGATIVE) 04/28/18 06:11 Urine Methadone Screen Negative (NEGATIVE) 04/28/18 06:11 Ur Barbiturates Screen Negative (NEGATIVE) 04/28/18 06:11 Ur Phencyclidine Scrn Negative (NEGATIVE) 04/28/18 06:11 Ur Amphetamines Screen Negative (NEGATIVE) 04/28/18 06:11 U Benzodiazepines Scrn Negative (NEGATIVE) 04/28/18 06:11 U Oth Cocaine Metabols Negative (NEGATIVE) 04/28/18 06:11 U Cannabinoids Screen Negative (NEGATIVE) 04/28/18 06:11 Influenza Typ A,B (EIA) Negative for flu a/b (NEGATIVE) 04/24/18 19:45 - Hospital Course Hospital Course: 67 YO F w/ PMH of CAD, PVD, HTN, HLD, Type 2 DM, carotid stenosis s/p endartectomy, COPD admitted for COPD exacerbation, (ACS was ruled out) and hypokalemia. Hypokalemia was corrected over hospital stay. Pt was found to be evicted from her apartment, additional hx was obtained from son; pt has hx of bipolar disease, schizophrenia and anxiety. Pt was evaluated by psych, was noted to be alert, with intact cognition, did not meet requirements for inpatient psych admission. Social work involved, pt to be d/c to emergency retirement. Of note, pt is a poor historian, All medications were confirmed by ecw and by two of pts pharmacies [facility] and [facility]. Additional, pts insurance not accepted in [facility]. Called [facility] for appt, clinic was called multiple times but clinic was closed Saturday from 12:00-3:30 PM. Left voice message after multiple attempts. Continue Meds: Enalapril/Hctz 10-25mg PO DAILY Metformin HCl (Glucophage) 500 mg PO BIDWM NESSA Metoprolol Tartrate (Lopressor) 25 mg PO Q12H NESSA Mirtazapine (Remeron) 15 mg PO HS NESSA Nitroglycerin (Nitrostat Sl Tab) 0.4 mg SL Q5MIN PRN Pravastatin Sodium (Pravachol) 40 mg PO DAILY NESSA Fluticasone/Salmeterol (Advair Diskus 250/50) 1 puff IH Q12 NESSA Discharge Exam - Head Exam Head Exam: ATRAUMATIC, NORMAL INSPECTION - Eye Exam Eye Exam: EOMI, Normal appearance - ENT Exam ENT Exam: Mucous Membranes Moist - Respiratory Exam Respiratory Exam: Clear to PA & Lateral, NORMAL BREATHING PATTERN. absent: Wheezes - Cardiovascular Exam Cardiovascular Exam: REGULAR RHYTHM, +S1, +S2 - GI/Abdominal Exam GI & Abdominal Exam: Normal Bowel Sounds, Soft - Extremities Exam Extremities exam: full ROM, normal inspection - Neurological Exam Neurological exam: Alert, Oriented x3 - Psychiatric Exam Psychiatric exam: Normal Affect, Normal Mood - Skin Skin Exam: Dry, Intact, Normal Color, Warm Discharge Plan - Discharge Medications Prescriptions: Nitroglycerin [Nitrostat] 0.4 mg SL Q5MIN PRN #30 tab.subl PRN Reason: chest pain Fluticasone/Salmeterol 250/50 [Advair Diskus 250/50] 1 puff IH Q12 30 Days #1 inh Mirtazapine [Remeron] 15 mg PO HS 30 Days tab - Follow Up Plan Condition: FAIR Disposition: HOME/ ROUTINE Patient education suggested?: Yes Instructions: Hypokalemia (DC), Exacerbation of COPD (DC) Referrals: [facility] [Outside]
[2018-04-28] MEDS ORDERED: Pantoprazole 20 mg EC Tab PO ONE (20:26)
== END 2018-04-28 16:25 | disposition home or self-care (01) | DRG 641 ==
LOC: H.ER 18:27 → OBSVTOIN 21:05 → H.ERHOLD 21:05 → H.TEL 23:16 → H.MEDSURG1 04-27 07:31
PROVIDERS: ADMIT Family Medicine Geriatric Medicine; ATTEND Family Medicine Geriatric Medicine
DX: E87.6 Hypokalemia (principal); J44.1 Chronic obstructive pulmonary disease with (acute) exacerbation; I25.10 Atherosclerotic heart disease of native coronary artery without angina pectoris; Z95.1 Presence of aortocoronary bypass graft; F20.9 Schizophrenia, unspecified; F31.9 Bipolar disorder, unspecified; F43.22 Adjustment disorder with anxiety; I10 Essential (primary) hypertension; E78.00 Pure hypercholesterolemia, unspecified; E78.5 Hyperlipidemia, unspecified; Z72.0 Tobacco use; E11.65 Type 2 diabetes mellitus with hyperglycemia; E11.649 Type 2 diabetes mellitus with hypoglycemia without coma; E11.51 Type 2 diabetes mellitus with diabetic peripheral angiopathy without gangrene; Z86.73 Personal history of transient ischemic attack (TIA), and cerebral infarction without residual deficits; F03.90 Unspecified dementia, unspecified severity, without behavioral disturbance, psychotic disturbance, mood disturbance, and anxiety; Z88.6 Allergy status to analgesic agent

== ENCOUNTER 2018-04-28 19:17 | Emergency (ER) | payer MEDICARE ==
--- NOTE | 2018-04-28 20:07 | ED PDOC ---
HPI: SOB/CHF/COPD Time Seen by Provider: 04/28/18 19:49 Chief Complaint (Nursing): Shortness Of Breath Chief Complaint (Provider): sob and constipation History Per: Patient History/Exam Limitations: no limitations Onset/Duration Of Symptoms: Days (1 weel), Persistent Additional Complaint(s): 67yo White woman with multiple medical conditions including COPD, htn, and bipolar/schizophrenia, presenting with sob and constipation which she reports is ongoing since Saturday during her entire hospital stay. She was discharged today but had been evicted. Attempted to go to a friend's home but her friend wasn't there and because she still felt sick she had ambulance called to bring her back tot [facility]. She requests to stay in hospital because she has no where to go. PMD [facility] Past Medical History Reviewed: Historical Data, Nursing Documentation, Vital Signs Vital Signs: Last Vital Signs Temp 98 F 04/29/18 00:55 Pulse 70 04/29/18 00:55 Resp 18 04/29/18 00:55 BP 135/68 04/29/18 00:55 Pulse Ox 97 04/29/18 00:55 - Medical History PMH: Asthma, Bipolar Disorder, COPD, CVA (no deficits), Dementia, Diabetes, HTN , Hypercholesterolemia, Schizophrenia Denies: HIV, Chronic Kidney Disease - Surgical History Surgical History: CABG, Carotid Endarterectomy Denies: Pacemaker - Family History Family History: States: Unknown Family Hx - Social History Current smoker - smoking cessation education provided: Yes Drugs: Denies - Home Medications Home Medications: Ambulatory Orders Medication Instructions Recorded Enalapril/Hydrochlorothiazide 1 tab PO DAILY 07/03/17 [Enalapril-Hctz 10-25 mg Tablet] MetFORMIN [glucoPHAGE] 1,000 mg PO BID 07/03/17 Metoprolol Tartrate [Lopressor] 25 mg PO Q12H 07/03/17 Pravastatin Sodium [Pravachol] 40 mg PO DAILY 07/03/17 Fluticasone/Salmeterol 250/50 1 puff IH Q12 30 Days #1 inh 04/28/18 [Advair Diskus 250/50] Mirtazapine [Remeron] 15 mg PO HS 30 Days tab 04/28/18 Nitroglycerin [Nitrostat] 0.4 mg SL Q5MIN PRN #30 tab.subl 04/28/18 Docusate Sodium [Colace] 100 mg PO TID PRN #30 capsule 04/29/18 Magnesium Citrate [Citrate of 300 ml PO ONCE #1 bottle 04/29/18 Magnesia] - Allergies Allergies/Adverse Reactions: Allergies Allergy/AdvReac Type Severity Reaction Status Date / Time codeine Allergy RASH Verified 04/30/18 23:38 meperidine Allergy RASH Verified 04/30/18 23:38 naproxen Allergy RASH Verified 04/30/18 23:38 Review of Systems ROS Statement: Except As Marked, All Systems Reviewed And Found Negative (and as per HPI) Constitutional: Positive for: Weakness, Malaise Cardiovascular: Positive for: Light Headedness Respiratory: Positive for: Cough, Shortness of Breath, SOB with Exertion Gastrointestinal: Positive for: Abdominal Pain, Constipation. Negative for: Nausea, Vomiting Physical Exam - Reviewed Nursing Documentation Reviewed: Yes Vital Signs Reviewed: Yes - Physical Exam Appears: Positive for: In Acute Distress (mild respiratory distress) Head Exam: Positive for: ATRAUMATIC, NORMOCEPHALIC Skin: Positive for: Warm, Dry Eye Exam: Positive for: EOMI, PERRL ENT: Negative for: Pharyngeal Erythema, Tonsillar Exudate Neck: Positive for: Painless ROM, Supple Cardiovascular/Chest: Positive for: Regular Rate, Rhythm. Negative for: Murmur Respiratory: Positive for: Rhonchi (faint), Respiratory Distress (mild tachypnea ). Negative for: Wheezing Gastrointestinal/Abdominal: Positive for: Soft, Tenderness (mild diffuse) Back: Positive for: Normal Inspection. Negative for: Decreased ROM Extremity: Positive for: Normal ROM. Negative for: Deformity Lymphatic: Negative for: Adenopathy Neurologic/Psych: Positive for: Alert. Negative for: Motor/Sensory Deficits - Laboratory Results Result Diagrams: 04/28/18 20:34 04/28/18 21:33 - ECG O2 Sat by Pulse Oximetry: 98 Pulse Ox Interpretation: Normal - Progress ED Course And Treament: Labs unremarkable Abd series with NSBGP and no abnormally dilated loops or air fluid levels Fleet enema given with movement of bowels. Pt stable for discharge with follow up. Disposition - Clinical Impression Clinical Impression: Constipation Counseled Patient/Family Regarding: Studies Performed, Diagnosis - Disposition Referrals: [facility] [Outside] Disposition: Routine/Home Disposition Time: 00:00 Condition: STABLE Prescriptions: Docusate Sodium [Colace] 100 mg PO TID PRN #30 capsule PRN Reason: Constipation Magnesium Citrate [Citrate of Magnesia] 300 ml PO ONCE #1 bottle Instructions: Constipation in Adults Forms: [facility] (Palauan)
[2018-04-28 20:41] LABS: BASO # 0.1 K/uL (0.0-0.2); BASO % 1.4 % (0.0-2.0); EOS # 0.1 K/uL (0.0-0.7); EOS % 1.1 % (0.0-4.0); HEMOGLOBIN 15.2 g/dL (12.0-16.0); LYMPH # 2.2 K/uL (1.0-4.3); LYMPH % 23.3 % (20.0-40.0); MEAN CELL VOLUME 86.6 fl (81.0-99.0); MEAN CORPUSCULAR HEMOGLOBIN 29.5 pg (27.0-31.0); MEAN CORPUSCULAR HGB CONC 34.1 g/dL (33.0-37.0); MEAN PLATELET VOLUME 8.8 fl (7.2-11.7); MONO # 0.8 K/uL (0.0-0.8); MONO % 8.7 % (0.0-10.0); NEUT # 6.2 K/uL (1.8-7.0); NEUT % 65.5 % (50.0-75.0); RBC 5.16 Mil/uL (3.80-5.20); RED CELL DISTRIBUTION WIDTH 14.3 % (11.5-14.5); WHITE BLOOD COUNT 9.5 K/uL (4.8-10.8)
[2018-04-28 21:07] VITALS: RESP 18
[2018-04-28 21:08] LABS: ALB/GLOB RATIO 1.1 (1.0-2.1); ALBUMIN 4.1 g/dL (3.5-5.0); ALT/SGPT < 6 U/L (9-52); AST/SGOT 59 U/L (14-36); BLOOD UREA NITROGEN 21 mg/dl (7-17); CALCIUM 10.2 mg/dL (8.4-10.2); GFR AFRICAN-AMERICAN > 60; GFR NON-AFRICAN AMERICAN > 60
[2018-04-28 21:31] LABS: B-TYPE NATRIURETIC PEPTIDE 810 pg/ml (0-900)
[2018-04-28 21:51] LABS: BLOOD UREA NITROGEN 20 mg/dl (7-17); CALCIUM 10.5 mg/dL (8.4-10.2); GFR AFRICAN-AMERICAN > 60; GFR NON-AFRICAN AMERICAN > 60
[2018-04-29 00:47] VITALS: BP 135/68; PULSE 70
[2018-04-29 00:58] VITALS: TEMP 98
--- NOTE | 2018-04-29 08:46 | RAD ---
PROCEDURE: Radiographs of the chest and abdomen (obstructive series) HISTORY: abd pain r/o sbo COMPARISON: Chest radiograph dated 04/24/2018 ; no prior abdominal imaging. TECHNIQUE: AP radiograph of the chest, with upright and supine radiographs of the abdomen. FINDINGS: CHEST: Lungs: Clear. Cardiovascular: Prior sternotomy with sternal wires and surgical clips redemonstrated. Atherosclerotic aortic calcifications. Cardiomediastinal silhouette within normal limits. Pleura: No pleural fluid. No pneumothorax. Other findings: None. ABDOMEN AND PELVIS: Bowel: Prominent amount of retained colonic stool. Unremarkable bowel gas pattern. No evidence of mechanical obstruction. Free air: None. Bones: Degenerative changes. Other findings: 0.8, 1.7 and 1.1 cm calcifications overlying the right renal shadow. IMPRESSION: No focal consolidation or pleural effusion. Prominent matter retained colonic stool. Probable right nephrolithiasis.
--- NOTE | 2018-04-29 10:29 | CARD ---
APPROVED REPORT EKG Measurement Heart [id number] <Conclusion> Normal sinus rhythm Right atrial enlargement Minimal voltage criteria for LVH, may be normal variant Borderline ECG
[2018-05-02 15:26] VITALS: O2SAT 98
== END 2018-04-29 00:55 | disposition home or self-care (01) ==
LOC: H.ER 19:17
DX: K59.00 Constipation, unspecified (principal); Z86.59 Personal history of other mental and behavioral disorders; I10 Essential (primary) hypertension; J44.9 Chronic obstructive pulmonary disease, unspecified; J45.909 Unspecified asthma, uncomplicated; Z79.84 Long term (current) use of oral hypoglycemic drugs; Z86.73 Personal history of transient ischemic attack (TIA), and cerebral infarction without residual deficits; F17.200 Nicotine dependence, unspecified, uncomplicated; Z95.1 Presence of aortocoronary bypass graft; E11.8 Type 2 diabetes mellitus with unspecified complications

== ENCOUNTER 2018-04-30 23:28 | Emergency (ER) | payer MEDICARE ==
[2018-04-30 23:42] VITALS: BP 92/53; PULSE 77; RESP 16; TEMP 97.5; O2SAT 96
--- NOTE | 2018-05-01 01:07 | ED PDOC ---
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 Patient reports was she discharged from [facility] and sent in an Uber to [facility] where she was denied a bed because she came after 17:30. She subsequently came to [facility] for a bed to sleep in. Patient has no other medical complaints. PMD: Dr. Anguiano Past Medical History Reviewed: Historical Data, Nursing Documentation, Vital Signs Vital Signs: Last Vital Signs Temp 97.5 F L 04/30/18 23:38 Pulse 77 04/30/18 23:38 Resp 16 04/30/18 23:38 BP 92/53 L 04/30/18 23:38 Pulse Ox 96 05/01/18 01:12 - Medical History PMH: Asthma, Bipolar Disorder, COPD, CVA (no deficits), Dementia, Diabetes, HTN , Hypercholesterolemia, Schizophrenia Denies: HIV, Chronic Kidney Disease - Surgical History Surgical History: CABG, Carotid Endarterectomy Denies: Pacemaker - Family History Family History: States: Unknown Family Hx - Living Arrangements Living Arrangements: Other (homeless) - Home Medications Home Medications: Ambulatory Orders Medication Instructions Recorded Enalapril/Hydrochlorothiazide 1 tab PO DAILY 07/03/17 [Enalapril-Hctz 10-25 mg Tablet] MetFORMIN [glucoPHAGE] 1,000 mg PO BID 07/03/17 Metoprolol Tartrate [Lopressor] 25 mg PO Q12H 07/03/17 Pravastatin Sodium [Pravachol] 40 mg PO DAILY 07/03/17 Fluticasone/Salmeterol 250/50 1 puff IH Q12 30 Days #1 inh 04/28/18 [Advair Diskus 250/50] Mirtazapine [Remeron] 15 mg PO HS 30 Days tab 04/28/18 Nitroglycerin [Nitrostat] 0.4 mg SL Q5MIN PRN #30 tab.subl 04/28/18 Docusate Sodium [Colace] 100 mg PO TID PRN #30 capsule 04/29/18 Magnesium Citrate [Citrate of 300 ml PO ONCE #1 bottle 04/29/18 Magnesia] - Allergies Allergies/Adverse Reactions: Allergies Allergy/AdvReac Type Severity Reaction Status Date / Time codeine Allergy RASH Verified 04/30/18 23:38 meperidine Allergy RASH Verified 04/30/18 23:38 naproxen Allergy RASH Verified 04/30/18 23:38 Review of Systems ROS Statement: Except As Marked, All Systems Reviewed And Found Negative Physical Exam - Reviewed Nursing Documentation Reviewed: Yes Vital Signs Reviewed: Yes - Physical Exam Appears: Positive for: Non-toxic, No Acute Distress Head Exam: Positive for: ATRAUMATIC, NORMAL INSPECTION, NORMOCEPHALIC Skin: Positive for: Normal Color, Warm, Dry Eye Exam: Positive for: EOMI, Normal appearance, PERRL Neck: Positive for: Normal, Painless ROM Cardiovascular/Chest: Positive for: Regular Rate, Rhythm. Negative for: Murmur Respiratory: Positive for: Normal Breath Sounds. Negative for: Respiratory Distress Gastrointestinal/Abdominal: Positive for: Normal Exam, Soft. Negative for: Tenderness Extremity: Positive for: Normal ROM (upper and lower extremities) Neurologic/Psych: Positive for: Alert, Oriented (x3) - ECG O2 Sat by Pulse Oximetry: 96 (RA) Pulse Ox Interpretation: Normal Medical Decision Making Medical Decision Making: Time: 1:00 Initial Impression: 67 y/o female with bed seeking behavior --Patient medically stable for discharge. Diagnosis homelessness and malingering disorder. Scribe Attestation: Documented by Nuris Mcdonnell, acting as a scribe for Eliazar Ordonez MD Provider Scribe Attestation: All medical record entries made by the Scribe were at my direction and personally dictated by me. I have reviewed the chart and agree that the record accurately reflects my personal performance of the history, physical exam, medical decision making, and the department course for this patient. I have also personally directed, reviewed, and agree with the discharge instructions and disposition. Disposition - Clinical Impression Clinical Impression: Malingering - Disposition Disposition: Routine/Home Disposition Time: 02:00 Condition: STABLE Forms: [facility] (Mongolian)
== END 2018-05-01 06:11 | disposition home or self-care (01) ==
LOC: H.ER 23:28
DX: Z76.5 Malingerer [conscious simulation] (principal); Z59.0 Homelessness

== ENCOUNTER 2018-05-01 10:29 | Emergency (ER) | payer MEDICARE ==
[2018-05-01 10:43] VITALS: O2SAT 97
[2018-05-01 10:44] VITALS: BMI 22.8
--- NOTE | 2018-05-01 11:07 | ED PDOC ---
HPI: General Adult Time Seen by Provider: 05/01/18 11:05 Chief Complaint (Nursing): Lower Extremity Problem/Injury Chief Complaint (Provider): FOOT PAIN/HEADACHE History Per: Patient (67 Y/O FEMALE H/O DM/HYPERLIPIDEMIA/COPD NEWLY HOMELESS DISCHARGED FROM [facility] YESTERDAY AND UNABLE TO GET TO [facility] LAST NIGHT. PATIENT IS HERE REQUESTING HELP WITH HOUSING. STATES SHE WILL TRY AND CALL BROTHER TO PICK HER UP. ) Past Medical History Reviewed: Historical Data, Nursing Documentation, Vital Signs Vital Signs: Last Vital Signs Temp 97 F L 05/01/18 10:50 Pulse 80 05/01/18 10:50 Resp 17 05/01/18 10:50 BP 91/52 L 05/01/18 10:50 Pulse Ox 97 05/01/18 11:07 - Medical History PMH: Asthma, Bipolar Disorder, COPD, CVA (no deficits), Dementia, Diabetes, HTN , Hypercholesterolemia, Schizophrenia Denies: HIV, Chronic Kidney Disease - Surgical History Surgical History: CABG, Carotid Endarterectomy Denies: Pacemaker - Family History Family History: States: Unknown Family Hx - Home Medications Home Medications: Ambulatory Orders Medication Instructions Recorded Enalapril/Hydrochlorothiazide 1 tab PO DAILY 07/03/17 [Enalapril-Hctz 10-25 mg Tablet] MetFORMIN [glucoPHAGE] 1,000 mg PO BID 07/03/17 Metoprolol Tartrate [Lopressor] 25 mg PO Q12H 07/03/17 Pravastatin Sodium [Pravachol] 40 mg PO DAILY 07/03/17 Fluticasone/Salmeterol 250/50 1 puff IH Q12 30 Days #1 inh 04/28/18 [Advair Diskus 250/50] Mirtazapine [Remeron] 15 mg PO HS 30 Days tab 04/28/18 Nitroglycerin [Nitrostat] 0.4 mg SL Q5MIN PRN #30 tab.subl 04/28/18 Docusate Sodium [Colace] 100 mg PO TID PRN #30 capsule 04/29/18 Magnesium Citrate [Citrate of 300 ml PO ONCE #1 bottle 04/29/18 Magnesia] - Allergies Allergies/Adverse Reactions: Allergies Allergy/AdvReac Type Severity Reaction Status Date / Time codeine Allergy RASH Verified 04/30/18 23:38 meperidine Allergy RASH Verified 04/30/18 23:38 naproxen Allergy RASH Verified 04/30/18 23:38 Review of Systems ROS Statement: Except As Marked, All Systems Reviewed And Found Negative Physical Exam - Reviewed Nursing Documentation Reviewed: Yes Vital Signs Reviewed: Yes - Physical Exam Appears: Positive for: Well, Non-toxic, No Acute Distress Head Exam: Positive for: ATRAUMATIC, NORMAL INSPECTION, NORMOCEPHALIC Skin: Positive for: Normal Color, Warm, DRY Eye Exam: Positive for: EOMI, Normal appearance, PERRL ENT: Positive for: Normal ENT Inspection Neck: Positive for: Normal, Painless ROM Cardiovascular/Chest: Positive for: Regular Rate, Rhythm Respiratory: Positive for: CNT, Normal Breath Sounds Gastrointestinal/Abdominal: Positive for: Normal Exam, Soft Back: Positive for: Normal Inspection Extremity: Positive for: Normal ROM Neurologic/Psych: Positive for: Alert, Oriented - ECG O2 Sat by Pulse Oximetry: 97 - Progress ED Course And Treament: 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 PATIENT IS DISTRAUGHT REGARDING HER HOUSING SITUATION. COMMUNITY OUTREACH IN ED TO HELP ARRANGE FOR HOUSING. Disposition - Clinical Impression Clinical Impression: Homeless, Leg pain - Patient ED Disposition Is Patient to be Admitted: No - Disposition Disposition: Routine/Home Disposition Time: 11:48 Condition: FAIR Instructions: Headache, Adult, Deciding Where to Go for Care
[2018-05-01 11:52] VITALS: BP 133/77; PULSE 82; RESP 18; TEMP 97.1
== END 2018-05-01 11:51 | disposition home or self-care (01) ==
LOC: H.ER 10:29
DX: G89.4 Chronic pain syndrome (principal); R51 Headache; Z59.0 Homelessness; Z79.84 Long term (current) use of oral hypoglycemic drugs; Z86.73 Personal history of transient ischemic attack (TIA), and cerebral infarction without residual deficits; Z95.1 Presence of aortocoronary bypass graft

== ENCOUNTER 2018-05-05 14:20 | Emergency (ER) | payer MEDICARE ==
[2018-05-05 14:20] VITALS: BMI 22.8
[2018-05-05 14:24] VITALS: RESP 16; O2SAT 96
--- NOTE | 2018-05-05 15:49 | ED PDOC ---
Lower Extremity Pain/Injury Time Seen by Provider: 05/05/18 14:29 Chief Complaint (Nursing): Lower Extremity Problem/Injury Chief Complaint (Provider): lower extremity edema\ History Per: Patient History/Exam Limitations: no limitations Onset/Duration Of Symptoms: Days (3-4), Gradual Current Symptoms Are (Timing): Still Present Severity: Moderate Additional Complaint(s): 67yo female with history of CHF, CAD, CABG, presents to ED for evaluation of bilateral lower extremity swelling. Patient states she is non-compliant with her CHF medications. She reports she recently became homeless is concerned about her housing situation. Prior visits reviewed and patient has had multiple visits to this facility with similar complaints. She states she used to sleep on a mattress in the homeless care home, however the mattress was uncomfortable so she now sleeps sitting upright; patient feels this might have contributed to her leg swelling. She denies any associated shortness of breath, chest pain, and offers no other medical complaints. Past Medical History Reviewed: Historical Data, Nursing Documentation, Vital Signs Vital Signs: Last Vital Signs Temp 98.4 F 05/05/18 14:22 Pulse 85 05/05/18 14:22 Resp 16 05/05/18 14:22 BP 175/65 H 05/05/18 14:22 Pulse Ox 96 05/05/18 14:22 - Medical History PMH: Anxiety, Asthma, Bipolar Disorder, COPD, CVA (no deficits), Dementia, Depression, Diabetes, HTN, Hypercholesterolemia, Schizophrenia Denies: HIV, Chronic Kidney Disease - Surgical History Surgical History: CABG, Carotid Endarterectomy Denies: Pacemaker - Family History Family History: States: Unknown Family Hx - Immunization History Hx Tetanus Toxoid Vaccination: No Hx Influenza Vaccination: Yes Hx Pneumococcal Vaccination: Yes - Home Medications Home Medications: Ambulatory Orders Medication Instructions Recorded Enalapril/Hydrochlorothiazide 1 tab PO DAILY 07/03/17 [Enalapril-Hctz 10-25 mg Tablet] MetFORMIN [glucoPHAGE] 1,000 mg PO BID 07/03/17 Metoprolol Tartrate [Lopressor] 25 mg PO Q12H 07/03/17 Pravastatin Sodium [Pravachol] 40 mg PO DAILY 07/03/17 Fluticasone/Salmeterol 250/50 1 puff IH Q12 30 Days #1 inh 04/28/18 [Advair Diskus 250/50] Mirtazapine [Remeron] 15 mg PO HS 30 Days tab 04/28/18 Nitroglycerin [Nitrostat] 0.4 mg SL Q5MIN PRN #30 tab.subl 04/28/18 Docusate Sodium [Colace] 100 mg PO TID PRN #30 capsule 04/29/18 Magnesium Citrate [Citrate of 300 ml PO ONCE #1 bottle 04/29/18 Magnesia] Enalapril/Hydrochlorothiazide 1 each PO DAILY #10 tablet 05/05/18 [Enalapril-Hctz 5-12.5 mg Tab] Metoprolol Tartrate 25 mg PO BID #20 tablet 05/05/18 metFORMIN [glucOPHAGE] 850 mg PO BID #20 tab 05/05/18 - Allergies Allergies/Adverse Reactions: Allergies Allergy/AdvReac Type Severity Reaction Status Date / Time codeine Allergy RASH Verified 04/30/18 23:38 diphenhydramine Allergy RASH Verified 05/05/18 14:22 [From Benadryl] ibuprofen [From Motrin] Allergy RASH Verified 05/05/18 14:22 meperidine Allergy RASH Verified 04/30/18 23:38 naproxen Allergy RASH Verified 04/30/18 23:38 Review of Systems ROS Statement: Except As Marked, All Systems Reviewed And Found Negative Cardiovascular: Negative for: Chest Pain Respiratory: Negative for: Shortness of Breath Musculoskeletal: Positive for: Other (lower extremity swelling) Physical Exam - Reviewed Nursing Documentation Reviewed: Yes Vital Signs Reviewed: Yes - Physical Exam Appears: Positive for: Non-toxic, No Acute Distress Head Exam: Positive for: ATRAUMATIC, NORMAL INSPECTION, NORMOCEPHALIC Skin: Positive for: Normal Color Eye Exam: Positive for: Normal appearance Neck: Positive for: Supple Cardiovascular/Chest: Positive for: Regular Rate, Rhythm Respiratory: Positive for: Normal Breath Sounds. Negative for: Wheezing Gastrointestinal/Abdominal: Positive for: Normal Exam, Soft. Negative for: Tenderness Back: Positive for: Normal Inspection Extremity: Positive for: Normal ROM, Pedal Edema (2+ pitting, bilaterally) Neurologic/Psych: Positive for: Alert, Oriented. Negative for: Motor/Sensory Deficits - Laboratory Results Result Diagrams: 05/05/18 16:00 05/05/18 16:00 - ECG ECG: Positive for: Interpreted By Me, Viewed By Me ECG Rhythm: Positive for: Sinus Rhythm. Negative for: ST/T Changes Rate: 86 O2 Sat by Pulse Oximetry: 96 (RA) Pulse Ox Interpretation: Normal Medical Decision Making Medical Decision Making: Impression: Mild CHF Plan: -- Labs -- CXR -- EKG -- Vasotec 5mg PO -- Metoprolol 25mg PO Progress: 1551 CXR FINDINGS: LUNGS: No active pulmonary disease. PLEURA: No significant pleural effusion identified. No pneumothorax apparent. CARDIOVASCULAR: Prior sternotomy with sternal wires and surgical clips redemonstrated. Atherosclerotic aortic calcifications. Cardiomediastinal silhouette within normal limits. OSSEOUS STRUCTURES: Changed. VISUALIZED UPPER ABDOMEN: Normal. OTHER FINDINGS: None. IMPRESSION: No active disease. ----- labs clinically unremarkable DC from ED, based on labs and chief complaint no emergent medical condition currently identified to indicate hospitalization Scribe attestation: Documented by Clare Bianchi acting as a scribe for Luis Fernando Way DO. Provider attestation: All medical record entries made by the Scribe were at my direction and personally dictated by me. I have reviewed the chart and agree that the record accurately reflects my personal performance of the history, physical exam, medical decision making, and the department course for this patient. I have also personally directed, reviewed, and agree with the discharge instructions and disposition. Disposition - Clinical Impression Clinical Impression: Leg edema - Patient ED Disposition Is Patient to be Admitted: No Counseled Patient/Family Regarding: Studies Performed, Diagnosis, Need For Followup - Disposition Referrals: [facility] [Outside] Disposition: Routine/Home Disposition Time: 17:45 Condition: STABLE Additional Instructions: Take your medications as directed. Return to ER for any concern or worsening symptoms. Followup with clinic within next week for continuing care. Prescriptions: Enalapril/Hydrochlorothiazide [Enalapril-Hctz 5-12.5 mg Tab] 1 each PO DAILY # 10 tablet metFORMIN [glucOPHAGE] 850 mg PO BID #20 tab Metoprolol Tartrate 25 mg PO BID #20 tablet Instructions: Dependent Edema (DC) Forms: [employer] (Malay)
--- NOTE | 2018-05-05 15:53 | RAD ---
HISTORY: hx CHF COMPARISON: Chest radiograph dated 04/24/2018. TECHNIQUE: Chest PA and lateral FINDINGS: LUNGS: No active pulmonary disease. PLEURA: No significant pleural effusion identified. No pneumothorax apparent. CARDIOVASCULAR: Prior sternotomy with sternal wires and surgical clips redemonstrated. Atherosclerotic aortic calcifications. Cardiomediastinal silhouette within normal limits. OSSEOUS STRUCTURES: Changed. VISUALIZED UPPER ABDOMEN: Normal. OTHER FINDINGS: None. IMPRESSION: No active disease.
[2018-05-05 16:22] LABS: BASO # 0.1 K/uL (0.0-0.2); BASO % 0.8 % (0.0-2.0); EOS # 0.1 K/uL (0.0-0.7); EOS % 0.7 % (0.0-4.0); HEMOGLOBIN 15.6 g/dL (12.0-16.0); LYMPH # 1.5 K/uL (1.0-4.3); LYMPH % 13.6 % (20.0-40.0); MEAN CELL VOLUME 88.3 fl (81.0-99.0); MEAN CORPUSCULAR HEMOGLOBIN 29.8 pg (27.0-31.0); MEAN CORPUSCULAR HGB CONC 33.7 g/dL (33.0-37.0); MEAN PLATELET VOLUME 9.3 fl (7.2-11.7); MONO # 0.8 K/uL (0.0-0.8); MONO % 7.2 % (0.0-10.0); NEUT # 8.4 K/uL (1.8-7.0); NEUT % 77.7 % (50.0-75.0); RBC 5.24 Mil/uL (3.80-5.20); RED CELL DISTRIBUTION WIDTH 14.3 % (11.5-14.5); WHITE BLOOD COUNT 10.9 K/uL (4.8-10.8)
[2018-05-05 16:33] LABS: B-TYPE NATRIURETIC PEPTIDE 342 pg/ml (0-900)
[2018-05-05 16:36] LABS: BLOOD UREA NITROGEN 11 mg/dl (7-17); CALCIUM 9.7 mg/dL (8.4-10.2); GFR AFRICAN-AMERICAN > 60; GFR NON-AFRICAN AMERICAN > 60
[2018-05-05 20:02] VITALS: BP 148/65; TEMP 98.2
--- NOTE | 2018-05-06 10:00 | CARD ---
APPROVED REPORT EKG Measurement Heart [id number] <Conclusion> Normal sinus rhythm Right atrial enlargement Moderate voltage criteria for LVH, may be normal variant Nonspecific ST abnormality Abnormal ECG
[2018-05-07 14:05] VITALS: PULSE 86
== END 2018-05-05 22:40 | disposition home or self-care (01) ==
LOC: H.ER 14:20
DX: R60.0 Localized edema (principal); E78.00 Pure hypercholesterolemia, unspecified; F31.9 Bipolar disorder, unspecified; F41.9 Anxiety disorder, unspecified; I50.9 Heart failure, unspecified; J44.9 Chronic obstructive pulmonary disease, unspecified; Z79.84 Long term (current) use of oral hypoglycemic drugs; Z86.73 Personal history of transient ischemic attack (TIA), and cerebral infarction without residual deficits; Z88.6 Allergy status to analgesic agent; Z95.1 Presence of aortocoronary bypass graft

== ENCOUNTER 2018-05-13 12:16 | Emergency (ER) | payer MEDICARE ==
[2018-05-13 12:16] VITALS: BMI 22.8
--- NOTE | 2018-05-13 12:42 | ED PDOC ---
HPI: SOB/CHF/COPD Time Seen by Provider: 05/13/18 12:30 Chief Complaint (Nursing): Shortness Of Breath History Per: Patient Onset/Duration Of Symptoms: Unknown Current Symptoms Are (Timing): Still Present Severity: Mild Associated Symptoms: Ankle/Leg Swelling. denies: Fever, Chest Pain, Productive Cough Additional Complaint(s): Swelling feet and ankle sbilat worse over past few days. Has been walking alot due to not being allowed to mstay in long term. Assoc with SOB. Denies chest pain , fever or cough. H/o COPD, still smokes Past Medical History Vital Signs: Last Vital Signs Temp 97.2 F L 05/13/18 12:23 Pulse 84 05/13/18 12:23 Resp 16 05/13/18 12:23 BP 147/80 05/13/18 12:23 Pulse Ox 94 L 05/13/18 12:43 - Medical History PMH: Anxiety, Asthma, Bipolar Disorder, COPD, CVA (no deficits), Dementia, Depression, Diabetes, HTN, Hypercholesterolemia, Schizophrenia Denies: HIV, Chronic Kidney Disease - Surgical History Surgical History: CABG, Carotid Endarterectomy Denies: Pacemaker - Family History Family History: States: Unknown Family Hx - Immunization History Hx Tetanus Toxoid Vaccination: No Hx Influenza Vaccination: Yes Hx Pneumococcal Vaccination: Yes - Home Medications Home Medications: Ambulatory Orders Medication Instructions Recorded Enalapril/Hydrochlorothiazide 1 tab PO DAILY 07/03/17 [Enalapril-Hctz 10-25 mg Tablet] MetFORMIN [glucoPHAGE] 1,000 mg PO BID 07/03/17 Metoprolol Tartrate [Lopressor] 25 mg PO Q12H 07/03/17 Pravastatin Sodium [Pravachol] 40 mg PO DAILY 07/03/17 Fluticasone/Salmeterol 250/50 1 puff IH Q12 30 Days #1 inh 04/28/18 [Advair Diskus 250/50] Mirtazapine [Remeron] 15 mg PO HS 30 Days tab 04/28/18 Nitroglycerin [Nitrostat] 0.4 mg SL Q5MIN PRN #30 tab.subl 04/28/18 Docusate Sodium [Colace] 100 mg PO TID PRN #30 capsule 04/29/18 Magnesium Citrate [Citrate of 300 ml PO ONCE #1 bottle 04/29/18 Magnesia] Enalapril/Hydrochlorothiazide 1 each PO DAILY #10 tablet 05/05/18 [Enalapril-Hctz 5-12.5 mg Tab] Metoprolol Tartrate 25 mg PO BID #20 tablet 05/05/18 metFORMIN [glucOPHAGE] 850 mg PO BID #20 tab 05/05/18 Albuterol HFA [Ventolin HFA 90 2 puff IH Q4H #1 puff 05/13/18 mcg/actuation (8 g)] - Allergies Allergies/Adverse Reactions: Allergies Allergy/AdvReac Type Severity Reaction Status Date / Time codeine Allergy RASH Verified 05/13/18 12:18 diphenhydramine Allergy RASH Verified 05/13/18 12:18 [From Benadryl] ibuprofen [From Motrin] Allergy RASH Verified 05/13/18 12:18 meperidine Allergy RASH Verified 05/13/18 12:18 naproxen Allergy RASH Verified 05/13/18 12:18 Review of Systems ROS Statement: Except As Marked, All Systems Reviewed And Found Negative Constitutional: Negative for: Fever Cardiovascular: Negative for: Chest Pain Respiratory: Positive for: Shortness of Breath. Negative for: Cough Musculoskeletal: Positive for: Other (Foot swelling) Physical Exam - Reviewed Nursing Documentation Reviewed: Yes Vital Signs Reviewed: Yes - Physical Exam Appears: Positive for: Non-toxic, No Acute Distress Head Exam: Positive for: ATRAUMATIC, NORMAL INSPECTION, NORMOCEPHALIC Skin: Positive for: Normal Color, Warm, DRY Eye Exam: Positive for: EOMI, Normal appearance, PERRL ENT: Positive for: Normal ENT Inspection Neck: Positive for: Normal, Painless ROM Cardiovascular/Chest: Positive for: Regular Rate, Rhythm Respiratory: Positive for: CNT, Normal Breath Sounds Gastrointestinal/Abdominal: Positive for: Normal Exam, Soft Back: Positive for: Normal Inspection Extremity: Positive for: Normal ROM, Pedal Edema. Negative for: Calf Tenderness , Swelling Neurologic/Psych: Positive for: Alert, Oriented - Laboratory Results Result Diagrams: 05/13/18 13:45 05/13/18 13:45 - ECG O2 Sat by Pulse Oximetry: 94 - Progress Re-evaluation Time: 16:00 Condition: Improved Disposition - Clinical Impression Clinical Impression: COPD exacerbation, Dependent edema - Patient ED Disposition Is Patient to be Admitted: No Counseled Patient/Family Regarding: Studies Performed, Diagnosis, Need For Followup, Rx Given - Disposition Referrals: [facility] [place] [Outside] Disposition: Routine/Home Disposition Time: 16:01 Condition: FAIR Prescriptions: Albuterol HFA [Ventolin HFA 90 mcg/actuation (8 g)] 2 puff IH Q4H #1 puff Instructions: Dependent Edema (DC), Chronic Obstructive Pulmonary Disease (COPD ), Including Emphysema Forms: [employer] (Pakistani)
--- NOTE | 2018-05-13 13:21 | RAD ---
HISTORY: SOB COMPARISON: 05/05/2018 TECHNIQUE: Chest PA and lateral FINDINGS: LUNGS: No active pulmonary disease. PLEURA: No significant pleural effusion identified. No pneumothorax apparent. CARDIOVASCULAR: Normal heart size. CABG. No congestive change. OSSEOUS STRUCTURES: No significant abnormalities. VISUALIZED UPPER ABDOMEN: Normal. OTHER FINDINGS: None. IMPRESSION: No active disease.
[2018-05-13] MEDS ORDERED: Albuterol-Ipratrop 3 mg / 0.5 (3 ml) UD IH STA (13:29)
[2018-05-13] MEDS ORDERED: Albuterol-Ipratrop 3 mg / 0.5 (3 ml) UD ONE (13:50)
[2018-05-13 13:54] LABS: BASO # 0.1 K/uL (0.0-0.2); BASO % 1.5 % (0.0-2.0); EOS % 0.5 % (0.0-4.0); HEMOGLOBIN 15.9 g/dL (12.0-16.0); LYMPH # 1.4 K/uL (1.0-4.3); LYMPH % 15.3 % (20.0-40.0); MEAN CELL VOLUME 88.3 fl (81.0-99.0); MEAN CORPUSCULAR HEMOGLOBIN 29.7 pg (27.0-31.0); MEAN CORPUSCULAR HGB CONC 33.7 g/dL (33.0-37.0); MEAN PLATELET VOLUME 8.9 fl (7.2-11.7); MONO # 0.6 K/uL (0.0-0.8); MONO % 7.3 % (0.0-10.0); NEUT # 6.7 K/uL (1.8-7.0); NEUT % 75.4 % (50.0-75.0); NRBC % 0.1 % (0.0-0.0); RBC 5.35 Mil/uL (3.80-5.20); RED CELL DISTRIBUTION WIDTH 14.8 % (11.5-14.5); WHITE BLOOD COUNT 8.8 K/uL (4.8-10.8)
[2018-05-13 14:08] LABS: ALB/GLOB RATIO 1.1 (1.0-2.1); ALBUMIN 4.5 g/dL (3.5-5.0); ALT/SGPT 18 U/L (9-52); AST/SGOT 22 U/L (14-36); BLOOD UREA NITROGEN 10 mg/dl (7-17); CALCIUM 10.2 mg/dL (8.4-10.2); GFR AFRICAN-AMERICAN > 60; GFR NON-AFRICAN AMERICAN > 60
[2018-05-13 14:12] LABS: B-TYPE NATRIURETIC PEPTIDE 514 pg/ml (0-900)
[2018-05-13 14:35] LABS: PROTHROMBIN TIME 9.6 Seconds (9.8-13.1)
[2018-05-13 14:36] LABS: INR 0.9 (0.9-1.2)
[2018-05-13 16:55] VITALS: BP 143/81; PULSE 89; RESP 15; TEMP 98; O2SAT 96
== END 2018-05-13 16:10 | disposition home or self-care (01) ==
LOC: H.ER 12:16
DX: J44.1 Chronic obstructive pulmonary disease with (acute) exacerbation (principal); R60.9 Edema, unspecified; E78.00 Pure hypercholesterolemia, unspecified; F31.9 Bipolar disorder, unspecified; F41.9 Anxiety disorder, unspecified; Z79.84 Long term (current) use of oral hypoglycemic drugs; Z86.73 Personal history of transient ischemic attack (TIA), and cerebral infarction without residual deficits; Z88.6 Allergy status to analgesic agent; Z95.1 Presence of aortocoronary bypass graft

== ENCOUNTER 2018-06-17 02:53 | Emergency (ER) | payer MEDICARE ==
[2018-06-17 02:54] VITALS: BMI 22.8
[2018-06-17] MEDS ORDERED: Albuterol-Ipratrop 3 mg / 0.5 (3 ml) UD INH STA ×3 (03:37→03:38)
[2018-06-17] MEDS ORDERED: Albuterol-Ipratrop 3 mg / 0.5 (3 ml) UD ONE (03:49)
--- NOTE | 2018-06-17 03:52 | ED PDOC ---
HPI: SOB/CHF/COPD Time Seen by Provider: 06/17/18 03:22 Chief Complaint (Nursing): Lower Extremity Problem/Injury Chief Complaint (Provider): Shortness of Breath History Per: Patient History/Exam Limitations: no limitations Onset/Duration Of Symptoms: Days (x 1) Current Symptoms Are (Timing): Still Present Additional Complaint(s): 67 year old female with a history of HTN, DM, COPD and neuropathy presents to the ED via EMS with shortness of breath and dry cough for 1 day. Patient was recently discharged from [facility]. She denies fever, nausea, vomiting and diarrhea. PMD: Ernesto Young V Past Medical History Reviewed: Historical Data, Nursing Documentation, Vital Signs Vital Signs: Last Vital Signs Temp 98.5 F 06/17/18 03:21 Pulse 86 06/17/18 03:21 Resp 16 06/17/18 03:21 BP 148/52 L 06/17/18 03:21 Pulse Ox 95 06/17/18 04:00 - Medical History PMH: Anxiety, Asthma, Bipolar Disorder, COPD, CVA (no deficits), Dementia, Depression, Diabetes, HTN, Hypercholesterolemia, Schizophrenia Denies: HIV, Chronic Kidney Disease - Surgical History Surgical History: CABG, Carotid Endarterectomy Denies: Pacemaker - Family History Family History: States: Unknown Family Hx - Immunization History Hx Tetanus Toxoid Vaccination: No Hx Influenza Vaccination: Yes Hx Pneumococcal Vaccination: Yes - Home Medications Home Medications: Ambulatory Orders Medication Instructions Recorded Enalapril/Hydrochlorothiazide 1 tab PO DAILY 07/03/17 [Enalapril-Hctz 10-25 mg Tablet] MetFORMIN [glucoPHAGE] 1,000 mg PO BID 07/03/17 Metoprolol Tartrate [Lopressor] 25 mg PO Q12H 07/03/17 Pravastatin Sodium [Pravachol] 40 mg PO DAILY 07/03/17 Fluticasone/Salmeterol 250/50 1 puff IH Q12 30 Days #1 inh 04/28/18 [Advair Diskus 250/50] Mirtazapine [Remeron] 15 mg PO HS 30 Days tab 04/28/18 Nitroglycerin [Nitrostat] 0.4 mg SL Q5MIN PRN #30 tab.subl 04/28/18 Docusate Sodium [Colace] 100 mg PO TID PRN #30 capsule 04/29/18 Magnesium Citrate [Citrate of 300 ml PO ONCE #1 bottle 04/29/18 Magnesia] Enalapril/Hydrochlorothiazide 1 each PO DAILY #10 tablet 05/05/18 [Enalapril-Hctz 5-12.5 mg Tab] Metoprolol Tartrate 25 mg PO BID #20 tablet 05/05/18 metFORMIN [glucOPHAGE] 850 mg PO BID #20 tab 05/05/18 Albuterol HFA [Ventolin HFA 90 2 puff IH Q4H #1 puff 05/13/18 mcg/actuation (8 g)] - Allergies Allergies/Adverse Reactions: Allergies Allergy/AdvReac Type Severity Reaction Status Date / Time codeine Allergy RASH Verified 06/17/18 03:21 diphenhydramine Allergy RASH Verified 06/17/18 03:21 [From Benadryl] ibuprofen [From Motrin] Allergy RASH Verified 06/17/18 03:21 meperidine Allergy RASH Verified 06/17/18 03:21 naproxen Allergy RASH Verified 06/17/18 03:21 Review of Systems ROS Statement: Except As Marked, All Systems Reviewed And Found Negative Constitutional: Negative for: Fever Respiratory: Positive for: Cough (dry), Shortness of Breath Gastrointestinal: Negative for: Nausea, Vomiting, Diarrhea Physical Exam - Reviewed Nursing Documentation Reviewed: Yes Vital Signs Reviewed: Yes - Physical Exam Appears: Positive for: No Acute Distress Head Exam: Positive for: ATRAUMATIC, NORMAL INSPECTION, NORMOCEPHALIC Skin: Positive for: Normal Color, Warm, Dry Eye Exam: Positive for: EOMI, Normal appearance, PERRL Neck: Positive for: Normal, Painless ROM, Supple Cardiovascular/Chest: Positive for: Regular Rate, Rhythm. Negative for: Murmur Respiratory: Positive for: Crackles (at bases bilaterally) Gastrointestinal/Abdominal: Positive for: Normal Exam, Soft. Negative for: Tenderness Extremity: Positive for: Normal ROM. Negative for: Deformity Neurologic/Psych: Positive for: Alert, Oriented (x 3). Negative for: Motor/ Sensory Deficits - Laboratory Results Result Diagrams: 06/17/18 04:16 06/17/18 04:16 - ECG O2 Sat by Pulse Oximetry: 95 (RA) Pulse Ox Interpretation: Normal Medical Decision Making Medical Decision Makin:36 Impression: 67 year old woman with COPD exacerbation Initial Plan: --Labs --EKG --Duoneb 3 ml INH (x3) --Solumedrol 125 mg IVP --Peak flow pre/post (x3) 05:54 --Labs reviewed and reveal no clinically significant abnormalities. Patient is stable for discharge. Diagnosis is COPD exacerbation. ---- Scribe Attestation: Documented by Aide Stiles, acting as a scribe for Eliazar Ordonez MD Provider Scribe Attestation: All medical record entries made by the Scribe were at my direction and personally dictated by me. I have reviewed the chart and agree that the record accurately reflects my personal performance of the history, physical exam, medical decision making, and the department course for this patient. I have also personally directed, reviewed, and agree with the discharge instructions and disposition. Disposition - Clinical Impression Clinical Impression: COPD exacerbation - Patient ED Disposition Is Patient to be Admitted: No - Disposition Referrals: Ernesto Young MD [Primary Care Provider] - Disposition: Routine/Home Disposition Time: 05:54 Condition: STABLE Additional Instructions: BETSY CHARLES, thank you for letting us take care of you today. Your provider was Eliazar Ordonez MD and you were treated for COUGHING. The emergency medical care you received today was directed at your acute symptoms. If you were prescribed any medication, please fill it and take as directed. It may take several days for your symptoms to resolve. Return to the Emergency Department if your symptoms worsen, do not improve, or if you have any other problems. Please contact your doctor or call one of the physicians/clinics you have been referred to that are listed on the Patient Visit Information form that is included in your discharge packet. Bring any paperwork you were given at discharge with you along with any medications you are taking to your follow up visit. Our treatment cannot replace ongoing medical care by a primary care provider outside of the emergency department. Thank you for allowing the [facility] team to be part of your care today. If you had an X-Ray or CT scan: A Radiologist will review the ED reading if any change in treatment is needed we will contact you. If you had a blood, urine, or wound culture: It will take several days for the results, if any change in treatment is needed we will contact you. If you had an STI test: It will take 48 hours for the results. Please call after 1 week if you have not heard back. Instructions: Chronic Obstructive Pulmonary Disease (COPD), Including Emphysema Forms: [employer] (Kosovan)
[2018-06-17 04:20] LABS: BASO % 0.6 % (0.0-2.0); EOS % 0.1 % (0.0-4.0); HEMOGLOBIN 12.1 g/dL (12.0-16.0); LYMPH # 1.3 K/uL (1.0-4.3); LYMPH % 17.3 % (20.0-40.0); MEAN CELL VOLUME 87.8 fl (81.0-99.0); MEAN CORPUSCULAR HEMOGLOBIN 29.6 pg (27.0-31.0); MEAN CORPUSCULAR HGB CONC 33.7 g/dL (33.0-37.0); MEAN PLATELET VOLUME 8.7 fl (7.2-11.7); MONO # 0.8 K/uL (0.0-0.8); MONO % 10.9 % (0.0-10.0); NEUT # 5.4 K/uL (1.8-7.0); NEUT % 71.1 % (50.0-75.0); NRBC % 0.1 % (0.0-0.0); RBC 4.08 Mil/uL (3.80-5.20); RED CELL DISTRIBUTION WIDTH 17.1 % (11.5-14.5); WHITE BLOOD COUNT 7.6 K/uL (4.8-10.8)
[2018-06-17 04:36] LABS: ALB/GLOB RATIO 1.3 (1.0-2.1); ALBUMIN 4.3 g/dL (3.5-5.0); ALT/SGPT 30 U/L (9-52); AST/SGOT 26 U/L (14-36); B-TYPE NATRIURETIC PEPTIDE 559 pg/ml (0-900); BLOOD UREA NITROGEN 16 mg/dl (7-17); CALCIUM 10.2 mg/dL (8.4-10.2); GFR NON-AFRICAN AMERICAN > 60
[2018-06-17 07:14] VITALS: BP 137/60; PULSE 94; RESP 18; TEMP 98; O2SAT 98
== END 2018-06-17 06:45 | disposition home or self-care (01) ==
LOC: H.ER 02:53
DX: J44.1 Chronic obstructive pulmonary disease with (acute) exacerbation (principal); E11.40 Type 2 diabetes mellitus with diabetic neuropathy, unspecified; E78.00 Pure hypercholesterolemia, unspecified; I10 Essential (primary) hypertension; Z79.84 Long term (current) use of oral hypoglycemic drugs; Z86.73 Personal history of transient ischemic attack (TIA), and cerebral infarction without residual deficits; Z95.1 Presence of aortocoronary bypass graft; Z88.6 Allergy status to analgesic agent
CPT/HCPCS: 80053; 83880; 84484; 85025; 87040; 94150; 94640; 96374; 99285; J2930

== ENCOUNTER 2018-06-19 11:59 | Emergency (ER) | payer MEDICARE ==
[2018-06-19 11:59] VITALS: BMI 22.8
[2018-06-19] MEDS ORDERED: MethylPREDNISolone 40 mg Vial IVP ONE (13:14)
[2018-06-19] MEDS ORDERED: Albuterol-Ipratrop 3 mg / 0.5 (3 ml) UD INH STA (13:14)
[2018-06-19] MEDS ORDERED: Albuterol-Ipratrop 3 mg / 0.5 (3 ml) UD ONE (13:35)
[2018-06-19] MEDS ORDERED: MethylPREDNISolone 40 mg Vial ONE (13:35)
[2018-06-19 13:41] LABS: BASO # 0.1 K/uL (0.0-0.2); BASO % 0.8 % (0.0-2.0); EOS # 0.1 K/uL (0.0-0.7); HEMOGLOBIN 13.6 g/dL (12.0-16.0); LYMPH # 1.7 K/uL (1.0-4.3); MEAN CELL VOLUME 88.4 fl (81.0-99.0); MEAN PLATELET VOLUME 8.2 fl (7.2-11.7); MONO # 0.8 K/uL (0.0-0.8); MONO % 7.4 % (0.0-10.0); NEUT # 7.6 K/uL (1.8-7.0); NEUT % 73.8 % (50.0-75.0); NRBC % 0.1 % (0.0-0.0); RBC 4.51 Mil/uL (3.80-5.20); RED CELL DISTRIBUTION WIDTH 17.8 % (11.5-14.5); WHITE BLOOD COUNT 10.3 K/uL (4.8-10.8)
[2018-06-19 14:02] LABS: B-TYPE NATRIURETIC PEPTIDE 291 pg/ml (0-900)
[2018-06-19 14:05] LABS: ALB/GLOB RATIO 1.2 (1.0-2.1); ALBUMIN 3.8 g/dL (3.5-5.0); ALT/SGPT 23 U/L (9-52); AST/SGOT 26 U/L (14-36); BLOOD UREA NITROGEN 18 mg/dl (7-17); CALCIUM 9.6 mg/dL (8.4-10.2); GFR NON-AFRICAN AMERICAN > 60
--- NOTE | 2018-06-19 14:29 | ED PDOC ---
HPI: General Adult Time Seen by Provider: 06/19/18 12:19 Chief Complaint (Nursing): Lower Extremity Problem/Injury Chief Complaint (Provider): Bilateral Leg Swelling, Shortness Of Breath History Per: Patient History/Exam Limitations: no limitations Onset/Duration Of Symptoms: Other (several months) Current Symptoms Are (Timing): Still Present Additional Complaint(s): 67 y/o female with a PMHx of COPD, asthma, HTN, and hypercholesterolemia presenting for evaluation of bilateral foot swelling ongoing for several months and shortness of breath x1 day. Patient states for the past several months she s had bilateral lower leg swelling and today shortness of breath. She states 2 weeks ago she was discharged from [facility] and told she had edema to legs. Of note, patient states she was also seen in this ED 2 days ago for her COPD. She says she did not receive any prescriptions and therefore she was unable to treat her COPD symptoms today. She reports current chest tightness and cough, but no chest pain, fever, or hemoptysis. She denies any history of DVT or PE as well. PMD: Aubrey Santos Past Medical History Reviewed: Historical Data, Nursing Documentation, Vital Signs Vital Signs: Last Vital Signs Temp 98.3 F 06/19/18 16:10 Pulse 68 06/19/18 16:10 Resp 18 06/19/18 16:10 BP 127/80 06/19/18 16:10 Pulse Ox 100 06/19/18 16:10 - Medical History PMH: Anxiety, Asthma, Bipolar Disorder, COPD, CVA (no deficits), Dementia, Depression, Diabetes, HTN, Hypercholesterolemia, Schizophrenia Denies: HIV, Chronic Kidney Disease - Surgical History Surgical History: CABG, Carotid Endarterectomy Denies: Pacemaker - Family History Family History: States: Unknown Family Hx - Immunization History Hx Tetanus Toxoid Vaccination: No Hx Influenza Vaccination: Yes Hx Pneumococcal Vaccination: Yes - Home Medications Home Medications: Ambulatory Orders Medication Instructions Recorded Enalapril/Hydrochlorothiazide 1 tab PO DAILY 07/03/17 [Enalapril-Hctz 10-25 mg Tablet] MetFORMIN [glucoPHAGE] 1,000 mg PO BID 07/03/17 Metoprolol Tartrate [Lopressor] 25 mg PO Q12H 07/03/17 Pravastatin Sodium [Pravachol] 40 mg PO DAILY 07/03/17 Fluticasone/Salmeterol 250/50 1 puff IH Q12 30 Days #1 inh 04/28/18 [Advair Diskus 250/50] Mirtazapine [Remeron] 15 mg PO HS 30 Days tab 04/28/18 Nitroglycerin [Nitrostat] 0.4 mg SL Q5MIN PRN #30 tab.subl 04/28/18 Docusate Sodium [Colace] 100 mg PO TID PRN #30 capsule 04/29/18 Magnesium Citrate [Citrate of 300 ml PO ONCE #1 bottle 04/29/18 Magnesia] Enalapril/Hydrochlorothiazide 1 each PO DAILY #10 tablet 05/05/18 [Enalapril-Hctz 5-12.5 mg Tab] Metoprolol Tartrate 25 mg PO BID #20 tablet 05/05/18 metFORMIN [glucOPHAGE] 850 mg PO BID #20 tab 05/05/18 Albuterol HFA [Ventolin HFA 90 2 puff IH Q4H #1 puff 05/13/18 mcg/actuation (8 g)] Acetaminophen [Tylenol Extra 1 - 2 tab PO Q4 PRN #15 tablet 06/19/18 Strength] Albuterol HFA [Ventolin HFA 90 2 puff IH [id number] PRN #60 puff 06/19/18 mcg/actuation (8 g)] Methylprednisolone [Medrol Dose 4 mg PO DAILY #21 mg 06/19/18 Pack (21 tabs)] - Allergies Allergies/Adverse Reactions: Allergies Allergy/AdvReac Type Severity Reaction Status Date / Time codeine Allergy RASH Verified 06/17/18 03:21 diphenhydramine Allergy RASH Verified 06/17/18 03:21 [From Benadryl] ibuprofen [From Motrin] Allergy RASH Verified 06/17/18 03:21 meperidine Allergy RASH Verified 06/17/18 03:21 naproxen Allergy RASH Verified 06/17/18 03:21 Review of Systems ROS Statement: Except As Marked, All Systems Reviewed And Found Negative Constitutional: Negative for: Fever Cardiovascular: Positive for: Other (chest tightness). Negative for: Chest Pain Respiratory: Positive for: Cough, Shortness of Breath. Negative for: Hemoptysis Musculoskeletal: Positive for: Leg Pain (bilateral leg swelling) Physical Exam - Reviewed Nursing Documentation Reviewed: Yes Vital Signs Reviewed: Yes - Physical Exam Appears: Positive for: Non-toxic, No Acute Distress (speaking in full sentences) Head Exam: Positive for: ATRAUMATIC, NORMAL INSPECTION, NORMOCEPHALIC Skin: Positive for: Normal Color, Warm, Dry. Negative for: Rash Eye Exam: Positive for: EOMI, Normal appearance, PERRL ENT: Positive for: Normal ENT Inspection Neck: Positive for: Normal, Painless ROM, Supple Cardiovascular/Chest: Positive for: Regular Rate, Rhythm. Negative for: Murmur Respiratory: Positive for: Wheezing (bilateral expiratory wheeze). Negative for : Respiratory Distress Pulses-Dorsalis Pedis (L): 2+ Pulses-Dorsalis Pedis (R): 2+ Gastrointestinal/Abdominal: Positive for: Normal Exam, Soft. Negative for: Tenderness Back: Positive for: Normal Inspection. Negative for: L CVA Tenderness, R CVA Tenderness, Vertebral Tenderness Extremity: Positive for: Pedal Edema (bilateral). Negative for: Calf Tenderness (bilateral) Neurologic/Psych: Positive for: Alert, Oriented (x3) - Laboratory Results Result Diagrams: 06/19/18 13:30 06/19/18 13:30 - ECG ECG: Positive for: Interpreted By Mi ECG Rhythm: Positive for: Sinus Rhythm. Negative for: ST/T Changes Rate: 79 O2 Sat by Pulse Oximetry: 94 (RA) - Progress ED Course And Treament: On re-evaluation, pt. reports feeling much better. Wheezing has resolved. Speaking in full sentences. Repeat POX: 100% on RA. Medical Decision Making Medical Decision Makin:11 Plan: -EKG -BNP -CMP -Troponin I -CBC w/ differential -CXR -Duoneb 9ml INH -Solu-Medrol 60mg IVP -residential solar consultant -IV insertion -Peak flow -US Duplex LE -Reevaluation ----- Scribe Attestation: Documented by Roby Nunez, acting as a scribe for Kem E Pormentilla, PA-C. Provider Scribe Attestation: All medical record entries made by the Scribe were at my direction and personally dictated by me. I have reviewed the chart and agree that the record accurately reflects my personal performance of the history, physical exam, medical decision making, and the department course for this patient. I have also personally directed, reviewed, and agree with the discharge instructions and disposition. Disposition - Clinical Impression Clinical Impression: COPD exacerbation, Leg edema - Patient ED Disposition Is Patient to be Admitted: No - Disposition Referrals: [facility] [Outside] Disposition: Routine/Home Disposition Time: 15:53 Condition: IMPROVED Additional Instructions: BETSY AGUILARMARTY, thank you for letting us take care of you today. Your provider was Stuart Walsh MD and you were treated for BILATERAL FOOT PAIN. The emergency medical care you received today was directed at your acute symptoms. If you were prescribed any medication, please fill it and take as directed. It may take several days for your symptoms to resolve. Return to the Emergency Department if your symptoms worsen, do not improve, or if you have any other problems. Please contact your doctor or call one of the physicians/clinics you have been referred to that are listed on the Patient Visit Information form that is included in your discharge packet. Bring any paperwork you were given at discharge with you along with any medications you are taking to your follow up visit. Our treatment cannot replace ongoing medical care by a primary care provider outside of the emergency department. Thank you for allowing the [facility] team to be part of your care today. If you had an X-Ray or CT scan: A Radiologist will review the ED reading if any change in treatment is needed we will contact you. If you had a blood, urine, or wound culture: It will take several days for the results, if any change in treatment is needed we will contact you. If you had an STI test: It will take 48 hours for the results. Please call after 1 week if you have not heard back. Prescriptions: Albuterol HFA [Ventolin HFA 90 mcg/actuation (8 g)] 2 puff IH [id number] PRN #60 puff PRN Reason: Wheezing Acetaminophen [Tylenol Extra Strength] 1 - 2 tab PO Q4 PRN #15 tablet PRN Reason: pain Methylprednisolone [Medrol Dose Pack (21 tabs)] 4 mg PO DAILY #21 mg Instructions: Dependent Edema (DC), Inhalers, Exacerbation of COPD (DC) Forms: [facility] (Persian)
--- NOTE | 2018-06-19 14:34 | US ---
Date of service: 06/19/2018 PROCEDURE: Bilateral lower extremity venous duplex Doppler. HISTORY: b/l COMPARISON: None available. TECHNIQUE: Bilateral common femoral, superficial femoral, popliteal and posterior tibial veins were evaluated. Flow was assessed with color Doppler, compressibility, assessment of phasic flow and augmentation response. FINDINGS: COMMON FEMORAL VEIN: Right CFV: Unremarkable. Left CFV: Unremarkable. SUPERFICIAL FEMORAL VEIN: Right SFV: Unremarkable. Left SFV: Unremarkable. POPLITEAL VEIN: Right Popliteal: Unremarkable. Left Popliteal: Unremarkable. POSTERIOR TIBIAL VEIN: Right PTV: Unremarkable. Left PTV: Unremarkable. OTHER FINDINGS: Incidental finding(s): Popliteal fossa cyst on the left 3.1 x 1.4 x 3.5 cm. This cyst contains debris. IMPRESSION: No evidence of deep venous thrombosis.
--- NOTE | 2018-06-19 16:42 | RAD ---
Date of service: 06/19/2018 HISTORY: cough COMPARISON: 05/13/2018. TECHNIQUE: Chest PA and lateral FINDINGS: LUNGS: No active pulmonary disease. PLEURA: No significant pleural effusion identified. No pneumothorax apparent. CARDIOVASCULAR: No radiographic findings to suggest acute or significant cardiovascular disease. Incidental Finding(s): Postoperative changes related to sternotomy. OSSEOUS STRUCTURES: No significant abnormalities. VISUALIZED UPPER ABDOMEN: Normal. OTHER FINDINGS: None. IMPRESSION: No active disease. No significant interval change compared to the prior examination(s).
--- NOTE | 2018-06-19 17:05 | CARD ---
APPROVED REPORT Date of service: 06/19/2018 EKG Measurement Heart [id number] <Conclusion> Normal sinus rhythm Possible Left atrial enlargement Left ventricular hypertrophy Abnormal ECG
[2018-06-19 17:48] VITALS: BP 127/80; RESP 18; TEMP 98.3
[2018-06-23 10:15] VITALS: PULSE 79; O2SAT 94
== END 2018-06-19 16:10 | disposition home or self-care (01) ==
LOC: H.ER 11:59
DX: J44.1 Chronic obstructive pulmonary disease with (acute) exacerbation (principal); R06.00 Dyspnea, unspecified; E78.00 Pure hypercholesterolemia, unspecified; F31.9 Bipolar disorder, unspecified; F41.9 Anxiety disorder, unspecified; I10 Essential (primary) hypertension; Z79.84 Long term (current) use of oral hypoglycemic drugs; Z86.73 Personal history of transient ischemic attack (TIA), and cerebral infarction without residual deficits; Z88.6 Allergy status to analgesic agent; Z95.1 Presence of aortocoronary bypass graft
CPT/HCPCS: 71046; 80053; 83880; 84484; 85025; 93005; 93970; 94640; 96374; 99285; J2920

== ENCOUNTER 2018-06-24 14:19 | Emergency (ER) | payer MEDICARE ==
[2018-06-24 14:20] VITALS: BMI 22.8
[2018-06-24 14:32] VITALS: TEMP 98.1; O2SAT 100
--- NOTE | 2018-06-24 15:15 | ED PDOC ---
Lower Extremity Pain/Injury Time Seen by Provider: 06/24/18 14:53 Chief Complaint (Nursing): Lower Extremity Problem/Injury Chief Complaint (Provider): Lower Extremity Problem/Injury History Per: Patient History/Exam Limitations: no limitations Onset/Duration Of Symptoms: Persistent Current Symptoms Are (Timing): Still Present Additional Complaint(s): 67 year old homeless female with medical history of COPD, CHF, HTN and DM, arrives to ED with complaints of persistent leg swelling bilaterally associated with shortness of breath and productive cough. She additionally states that she was told her sugar level is high. Patient is known to this ED for multiple visits with similar complaints. She reports that she is occasionally noncompliant with medications and unable to elevate legs secondary to homelessness. Patient denies any further medical complaints and requesting to shower. Past Medical History Reviewed: Historical Data, Nursing Documentation, Vital Signs Vital Signs: Last Vital Signs Temp 98.1 F 06/24/18 14:29 Pulse 85 06/24/18 14:29 Resp 18 06/24/18 14:29 BP 105/60 06/24/18 14:29 Pulse Ox 100 06/24/18 14:29 - Medical History PMH: Anxiety, Asthma, Bipolar Disorder, COPD, CVA (no deficits), Dementia, Depression, Diabetes, HTN, Hypercholesterolemia, Schizophrenia Denies: HIV, Chronic Kidney Disease - Surgical History Surgical History: CABG, Carotid Endarterectomy Denies: Pacemaker - Family History Family History: States: Unknown Family Hx - Immunization History Hx Tetanus Toxoid Vaccination: No Hx Influenza Vaccination: Yes Hx Pneumococcal Vaccination: Yes - Home Medications Home Medications: Ambulatory Orders Medication Instructions Recorded Enalapril/Hydrochlorothiazide 1 tab PO DAILY 07/03/17 [Enalapril-Hctz 10-25 mg Tablet] MetFORMIN [glucoPHAGE] 1,000 mg PO BID 07/03/17 Metoprolol Tartrate [Lopressor] 25 mg PO Q12H 07/03/17 Pravastatin Sodium [Pravachol] 40 mg PO DAILY 07/03/17 Fluticasone/Salmeterol 250/50 1 puff IH Q12 30 Days #1 inh 04/28/18 [Advair Diskus 250/50] Mirtazapine [Remeron] 15 mg PO HS 30 Days tab 04/28/18 Nitroglycerin [Nitrostat] 0.4 mg SL Q5MIN PRN #30 tab.subl 04/28/18 Docusate Sodium [Colace] 100 mg PO TID PRN #30 capsule 04/29/18 Magnesium Citrate [Citrate of 300 ml PO ONCE #1 bottle 04/29/18 Magnesia] Enalapril/Hydrochlorothiazide 1 each PO DAILY #10 tablet 05/05/18 [Enalapril-Hctz 5-12.5 mg Tab] Metoprolol Tartrate 25 mg PO BID #20 tablet 05/05/18 metFORMIN [glucOPHAGE] 850 mg PO BID #20 tab 05/05/18 Albuterol HFA [Ventolin HFA 90 2 puff IH Q4H #1 puff 05/13/18 mcg/actuation (8 g)] Acetaminophen [Tylenol Extra 1 - 2 tab PO Q4 PRN #15 tablet 06/19/18 Strength] Albuterol HFA [Ventolin HFA 90 2 puff IH [id number] PRN #60 puff 06/19/18 mcg/actuation (8 g)] Methylprednisolone [Medrol Dose 4 mg PO DAILY #21 mg 06/19/18 Pack (21 tabs)] - Allergies Allergies/Adverse Reactions: Allergies Allergy/AdvReac Type Severity Reaction Status Date / Time codeine Allergy RASH Verified 06/24/18 14:29 diphenhydramine Allergy RASH Verified 06/24/18 14:29 [From Benadryl] ibuprofen [From Motrin] Allergy RASH Verified 06/24/18 14:29 meperidine Allergy RASH Verified 06/24/18 14:29 naproxen Allergy RASH Verified 06/24/18 14:29 Review of Systems ROS Statement: Except As Marked, All Systems Reviewed And Found Negative Respiratory: Positive for: Cough, Shortness of Breath, Sputum Musculoskeletal: Positive for: Other (bilateral leg swelling) Physical Exam - Reviewed Nursing Documentation Reviewed: Yes Vital Signs Reviewed: Yes - Physical Exam Appears: Positive for: No Acute Distress (unkempt and dishelved appearance) Head Exam: Positive for: ATRAUMATIC, NORMOCEPHALIC Skin: Positive for: Warm (julio complexion), Dry. Negative for: Normal Color Eye Exam: Positive for: EOMI, PERRL Neck: Positive for: Painless ROM, Supple Cardiovascular/Chest: Positive for: Regular Rate, Rhythm, Edema. Negative for: Murmur Respiratory: Positive for: Rhonchi (diffused), Wheezing (expiratory occasionally ). Negative for: Accessory Muscle Use, Respiratory Distress Gastrointestinal/Abdominal: Positive for: Soft. Negative for: Tenderness Back: Positive for: Normal Inspection. Negative for: Decreased ROM Extremity: Positive for: Pedal Edema (2+ with mild erythema on anterior tibia bilaterally). Negative for: Other (warmth or induration) Lymphatic: Negative for: Adenopathy Neurologic/Psych: Positive for: Alert. Negative for: Motor/Sensory Deficits - ECG O2 Sat by Pulse Oximetry: 100 (RA) Pulse Ox Interpretation: Normal Medical Decision Making Medical Decision Making: Initial Impression: Leg edema; COPD exacerbation, mild; Chronic CHF Initial Plan: * CXR * Duoneb 6ml INH * Accucheck Time: 1528 --Accucheck: 230mg/dL Time: 1610 --CXR FINDINGS: LINES AND TUBES: None. LUNG AND PLEURA: The lungs are well inflated and clear. Status post CABG with No pleural effusion or pneumothorax. HEART AND MEDIASTINUM: The heart is not enlarged. The hilar and mediastinal contours are within normal limits. SKELETAL STRUCTURES: The bony structures are within normal limits for the patient's age. VISUALIZED UPPER ABDOMEN: Normal. OTHER FINDINGS: None. IMPRESSION: No active pulmonary disease. Scribe Attestation: Documented by Megan Zepeda, acting as a scribe for Andria Whittaker MD. Provider Scribe Attestation: All medical record entries made by the Scribe were at my direction and personally dictated by me. I have reviewed the chart and agree that the record accurately reflects my personal performance of the history, physical exam, medical decision making, and the department course for this patient. I have also personally directed, reviewed, and agree with the discharge instructions and disposition. Disposition - Clinical Impression Clinical Impression: COPD exacerbation, Leg edema, Hyperglycemia - Patient ED Disposition Is Patient to be Admitted: No Counseled Patient/Family Regarding: Studies Performed, Diagnosis, Smoking Cessation - Disposition Referrals: [facility] [Outside] - 06/25/18 (FOLLOW UP AT CLINIC SOON POSSIBLE TO CONTINUE YOUR REGULAR MEDICAL CARE) Disposition: Routine/Home Disposition Time: 15:55 Condition: STABLE Instructions: Chronic Obstructive Pulmonary Disease (COPD), Including Emphysema , Dependent Edema (DC), Hyperglycemia, Adult (DC)
[2018-06-24] MEDS: Albuterol-Ipratrop 3 mg / 0.5 (3 ml) UD INH STA (15:41)
[2018-06-24] MEDS ORDERED: Albuterol-Ipratrop 3 mg / 0.5 (3 ml) UD ONE (16:03)
--- NOTE | 2018-06-24 16:11 | RAD ---
HISTORY: COMPARISON: 06/19/2018. TECHNIQUE: Chest PA and lateral FINDINGS: LINES AND TUBES: None. LUNG AND PLEURA: The lungs are well inflated and clear. Status post CABG with No pleural effusion or pneumothorax. HEART AND MEDIASTINUM: The heart is not enlarged. The hilar and mediastinal contours are within normal limits. SKELETAL STRUCTURES: The bony structures are within normal limits for the patient's age. VISUALIZED UPPER ABDOMEN: Normal. OTHER FINDINGS: None. IMPRESSION: No active pulmonary disease.
[2018-06-24 17:12] VITALS: BP 118/68; PULSE 76; RESP 17
== END 2018-06-24 17:12 | disposition home or self-care (01) ==
LOC: H.ER 14:19
DX: J44.1 Chronic obstructive pulmonary disease with (acute) exacerbation (principal); R60.0 Localized edema; E11.65 Type 2 diabetes mellitus with hyperglycemia; E78.00 Pure hypercholesterolemia, unspecified; Z79.84 Long term (current) use of oral hypoglycemic drugs; Z86.73 Personal history of transient ischemic attack (TIA), and cerebral infarction without residual deficits; Z88.6 Allergy status to analgesic agent; Z95.1 Presence of aortocoronary bypass graft; I50.9 Heart failure, unspecified

== ENCOUNTER 2018-07-08 14:51 | Emergency (ER) | payer MEDICARE ==
[2018-07-08 14:51] VITALS: BMI 23.2
[2018-07-08 15:01] VITALS: RESP 16
[2018-07-08] MEDS ORDERED: Bacitracin OINT 15GM TOP STA (15:08)
--- NOTE | 2018-07-08 15:14 | ED PDOC ---
HPI: Wound Care - HPI Time Seen by Provider: 07/08/18 14:58 Chief Complaint (Nursing): Medical Clearance Chief Complaint (Provider): Wound Care History Per: Patient History Of Present Illness: 67 year old female presents to the emergency department via EMS stating that she called and asked to be taken to the senior care and they brought her here to the ED. Patient offers no medical complaints but is requesting that the bandages on her feet to be changed. She states that she has chronic wounds on her feet from poor fitting shoes and being homeless. Tetanus up to date. PMD: Ernesto Parker V Exam Limitations: no limitations Location Of Injury: Right: Foot, Left: Foot Past Medical History Reviewed: Historical Data, Nursing Documentation, Vital Signs Vital Signs: Last Vital Signs Temp 96.0 F L 07/08/18 14:57 Pulse 95 H 07/08/18 14:57 Resp 16 07/08/18 14:57 BP 108/57 L 07/08/18 14:57 Pulse Ox 95 07/08/18 14:57 - Medical History PMH: Anxiety, Asthma, Bipolar Disorder, CAD, CHF, COPD, CVA (no deficits), Dementia, Depression, Diabetes, HTN, Hypercholesterolemia, Schizophrenia Denies: HIV, Chronic Kidney Disease - Surgical History Surgical History: CABG, Carotid Endarterectomy Denies: Pacemaker - Family History Family History: States: Unknown Family Hx - Living Arrangements Living Arrangements: Other (Adomicile) - Immunization History Hx Tetanus Toxoid Vaccination: No Hx Influenza Vaccination: Yes Hx Pneumococcal Vaccination: Yes - Home Medications Home Medications: Ambulatory Orders Medication Instructions Recorded Metoprolol Tartrate [Lopressor] 25 mg PO Q12H 07/03/17 Fluticasone/Salmeterol 250/50 1 puff IH Q12 30 Days #1 inh 04/28/18 [Advair Diskus 250/50] Mirtazapine [Remeron] 15 mg PO HS 30 Days tab 04/28/18 Nitroglycerin [Nitrostat] 0.4 mg SL Q5MIN PRN #30 tab.subl 04/28/18 Enalapril/Hydrochlorothiazide 1 each PO DAILY #10 tablet 05/05/18 [Enalapril-Hctz 5-12.5 mg Tab] metFORMIN [glucOPHAGE] 850 mg PO BID #20 tab 06/11/18 Albuterol HFA [Ventolin HFA 90 2 puff IH Q4H #1 puff 05/13/18 mcg/actuation (8 g)] Albuterol HFA [Ventolin HFA 90 2 puff IH [id number] PRN #60 puff 06/19/18 mcg/actuation (8 g)] Acetaminophen [Acetaminophen ER] 650 mg PO Q8 #20 tablet.er 07/08/18 Bacitracin OINT 1 applic TOP BID #1 tube 07/08/18 Cyclobenzaprine [Cyclobenzaprine 10 mg PO TID #30 tab 07/08/18 HCl] - Allergies Allergies/Adverse Reactions: Allergies Allergy/AdvReac Type Severity Reaction Status Date / Time codeine Allergy RASH Verified 07/08/18 14:56 diphenhydramine Allergy RASH Verified 07/08/18 14:56 [From Benadryl] ibuprofen [From Motrin] Allergy RASH Verified 07/08/18 14:56 meperidine Allergy RASH Verified 07/08/18 14:56 naproxen Allergy RASH Verified 07/08/18 14:56 Review of Systems Skin: Positive for: Other (wound care) Physical Exam - Reviewed Nursing Documentation Reviewed: Yes Vital Signs Reviewed: Yes - Physical Exam Comments: GENERAL APPEARANCE: Patient is awake, alert, oriented x 3, in no acute distress. SKIN: Warm, dry; (-) cyanosis. LOWER EXTREMITY: Chronic superficial wounds to the dorsum of the bilateral mid foot, no active drainage or bleeding, no tenderness, no surrounding erythema, sensation and pulses intact (+) full ROM actively. CARDIOVASCULAR: (+) distal pulse. NEUROLOGIC: (+) distal sensation. - ECG O2 Sat by Pulse Oximetry: 95 (RA) Pulse Ox Interpretation: Normal Medical Decision Making Medical Decision Makin Initial Impression 67 year old female presenting for wound care Initial plan: * Bacitracin dressings applied to wounds * Reevaluation 1530 Bacitracin dressings placed by ED RN. NV intact after placement. Patient educated on wound care. Patient supplied with cane to assist ambulation to senior care. On re-evaluation, patient reports improvement of symptoms. On exam, patient remains AAOx3, in no acute distress. On exam, neck is supple, lungs CTA, cardiac RRR, neuro exam shows no focal findings. VSS, stable for discharge. Diagnostic results d/w the patient in great detail. Dx of wound care, foot wound d/w the patient. Based on history, exam and diagnostic results plan will be for discharge and outpatient follow up. Advised to follow up with primary care physician in 1-2 days without fail. Advised to take medication as prescribed. Return to the emergency room at any time for any new or worsening symptoms. Patient states she fully agrees with and understands discharge instructions. States that she agrees with the plan and disposition. Verbalized and repeated discharge instructions and plan. I have given the patient opportunity to ask any additional questions. -------- Documented by iLlli lua acting as a scribe for Nela Jarvis PA-C. All medical record entries made by the Scribe were at my direction and personally dictated by me. I have reviewed the chart and agree that the record accurately reflects my personal performance of the history, physical exam, medical decision making, and the department course for this patient. I have also personally directed, reviewed, and agree with the discharge instructions and disposition. Disposition - Clinical Impression Clinical Impression: Visit for wound care, Wound of foot - Patient ED Disposition Is Patient to be Admitted: No Counseled Patient/Family Regarding: Studies Performed, Diagnosis, Need For Followup, Rx Given - Disposition Referrals: Ernesto Young MD [Staff Provider] - [facility] [Outside] Disposition: Routine/Home Disposition Time: 15:29 Condition: STABLE Additional Instructions: The emergency medical care you received today was directed at your acute symptoms. If you were prescribed any medication, please fill it and take as directed. It may take several days for your symptoms to resolve. Return to the Emergency Department if your symptoms worsen, do not improve, or if you have any other problems. Please contact your doctor in 2 days for re-evaluation and follow up / or call one of the physicians/clinics you have been referred to that are listed on the Patient Visit Information form that is included in your discharge packet. Bring any paperwork you were given at discharge with you along with any medications you are taking to your follow up visit. Our treatment cannot replace ongoing medical care by a primary care provider (PCP) outside of the emergency department. Prescriptions: Bacitracin OINT 1 applic TOP BID #1 tube Instructions: Wound Care, General (DC) Forms: [facility] (Lao) Print Language: SYRIAN - POA Present On Arrival: None
[2018-07-08 15:53] VITALS: BP 108/67; PULSE 63; TEMP 97.4; O2SAT 97
== END 2018-07-08 15:53 | disposition home or self-care (01) ==
LOC: H.ER 14:51
DX: Z48.00 Encounter for change or removal of nonsurgical wound dressing (principal); Z86.59 Personal history of other mental and behavioral disorders; Z59.0 Homelessness; I25.10 Atherosclerotic heart disease of native coronary artery without angina pectoris; I50.9 Heart failure, unspecified; J44.9 Chronic obstructive pulmonary disease, unspecified; S91.309A Unspecified open wound, unspecified foot, initial encounter; Z79.84 Long term (current) use of oral hypoglycemic drugs; Z86.73 Personal history of transient ischemic attack (TIA), and cerebral infarction without residual deficits; Z88.6 Allergy status to analgesic agent; Z95.1 Presence of aortocoronary bypass graft

== ENCOUNTER 2018-07-19 02:09 | Inpatient (IN) | payer MEDICARE ==
[2018-07-19 02:24] VITALS: BMI 24.7
[2018-07-19] MEDS ORDERED: Sodium Chloride 0.9% 500 ML IV ONE (02:28)
--- NOTE | 2018-07-19 02:30 | ED PDOC ---
HPI: General Adult Chief Complaint (Provider): diarrhea History Per: Patient (68 y/o female undomiciled here with ongoing diarrhea x 6 weeks since she moved into homeless skilled nursing. Notes food is quite salty and believes this caused diarrhea. No vomiting/fevers/chills.) <Idalmis Mcnally - Last Filed: 07/19/18 06:06> <Hadley Thompson - Last Filed: 07/19/18 06:31> Time Seen by Provider: 07/19/18 02:29 Chief Complaint (Nursing): GI Problem Past Medical History Reviewed: Historical Data, Nursing Documentation, Vital Signs - Medical History PMH: Anxiety, Asthma, Bipolar Disorder, CAD, CHF, COPD, CVA (no deficits), Dementia, Depression, Diabetes, HTN, Hypercholesterolemia, Schizophrenia Denies: HIV, Chronic Kidney Disease - Surgical History Surgical History: CABG, Carotid Endarterectomy Denies: Pacemaker - Family History Family History: States: Unknown Family Hx - Immunization History Hx Tetanus Toxoid Vaccination: No Hx Influenza Vaccination: Yes Hx Pneumococcal Vaccination: Yes <Idalmis Mcnally - Last Filed: 07/19/18 06:06> <Hadley Thompson - Last Filed: 07/19/18 06:31> Vital Signs: Last Vital Signs Temp 98.3 F 07/19/18 02:24 Pulse 90 07/19/18 02:24 Resp 18 07/19/18 02:24 BP 123/63 07/19/18 02:24 Pulse Ox 98 07/19/18 06:06 - Home Medications Home Medications: Ambulatory Orders Medication Instructions Recorded Metoprolol Tartrate [Lopressor] 25 mg PO Q12H 07/03/17 Fluticasone/Salmeterol 250/50 1 puff IH Q12 30 Days #1 inh 04/28/18 [Advair Diskus 250/50] Mirtazapine [Remeron] 15 mg PO HS 30 Days tab 04/28/18 Nitroglycerin [Nitrostat] 0.4 mg SL Q5MIN PRN #30 tab.subl 04/28/18 Enalapril/Hydrochlorothiazide 1 each PO DAILY #10 tablet 05/05/18 [Enalapril-Hctz 5-12.5 mg Tab] metFORMIN [glucOPHAGE] 850 mg PO BID #20 tab 05/05/18 Albuterol HFA [Ventolin HFA 90 2 puff IH Q4H #1 puff 05/13/18 mcg/actuation (8 g)] Albuterol HFA [Ventolin HFA 90 2 puff IH [id number] PRN #60 puff 06/19/18 mcg/actuation (8 g)] Acetaminophen [Acetaminophen ER] 650 mg PO Q8 #20 tablet.er 07/08/18 Bacitracin OINT 1 applic TOP BID #1 tube 07/08/18 Cyclobenzaprine [Cyclobenzaprine 10 mg PO TID #30 tab 07/08/18 HCl] - Allergies Allergies/Adverse Reactions: Allergies Allergy/AdvReac Type Severity Reaction Status Date / Time codeine Allergy RASH Verified 07/19/18 02:24 diphenhydramine Allergy RASH Verified 07/19/18 02:24 [From Benadryl] ibuprofen [From Motrin] Allergy RASH Verified 07/19/18 02:24 meperidine Allergy RASH Verified 07/19/18 02:24 naproxen Allergy RASH Verified 07/19/18 02:24 Review of Systems ROS Statement: Except As Marked, All Systems Reviewed And Found Negative Gastrointestinal: Positive for: Diarrhea <Idalmis Mcnally B - Last Filed: 07/19/18 06:06> Physical Exam - Reviewed Nursing Documentation Reviewed: Yes Vital Signs Reviewed: Yes - Physical Exam Appears: Positive for: Well, Non-toxic, No Acute Distress Head Exam: Positive for: ATRAUMATIC, NORMAL INSPECTION, NORMOCEPHALIC Skin: Positive for: Normal Color, Warm, DRY Eye Exam: Positive for: EOMI, Normal appearance, PERRL ENT: Positive for: Normal ENT Inspection Neck: Positive for: Normal, Painless ROM Cardiovascular/Chest: Positive for: Regular Rate, Rhythm Respiratory: Positive for: CNT, Normal Breath Sounds Gastrointestinal/Abdominal: Positive for: Normal Exam, Soft Back: Positive for: Normal Inspection Extremity: Positive for: Normal ROM Neurologic/Psych: Positive for: Alert, Oriented <Idalmis Mcnally - Last Filed: 07/19/18 06:06> - Laboratory Results Result Diagrams: 07/19/18 02:56 07/19/18 04:53 - ECG O2 Sat by Pulse Oximetry: 98 <Idalmis Mcnally - Last Filed: 07/19/18 06:06> - Laboratory Results Result Diagrams: 07/19/18 02:56 07/19/18 04:53 <Hadley Thompson - Last Filed: 07/19/18 06:31> - Progress ED Course And Treament: ns 500 ml iv bolus pepcid 20 mg iv x1 dose potassium noted low 2.8 KDUR 40meq x 1 dose Ns 1 liter 500 ml per hour (Idalmis Mcnally) Medical Decision Making <Idalmis Mcnally - Last Filed: 07/19/18 06:06> <Hadley Thompson - Last Filed: 07/19/18 06:31> Medical Decision Makin Patient endorsed to Dr. Shelton pending CT A/P and re-eval. Stable. (Hadley Thompson ) Disposition - Patient ED Disposition Is Patient to be Admitted: Transfer of Care - Disposition Disposition: Transfer of Care Disposition Time: 06:05 Patient Signed Over To: Hadley Thompson Handoff Comments: PENDING CT ABD/PELVIS <Idalmis Mcnally - Last Filed: 07/19/18 06:06> - Patient ED Disposition Is Patient to be Admitted: Transfer of Care - Disposition Disposition: Transfer of Care Disposition Time: 07:00 Patient Signed Over To: Bryan Shelton <Hadley Thompson - Last Filed: 07/19/18 06:31> - Clinical Impression Clinical Impression: Abdominal pain, Diarrhea, Hypokalemia - Disposition Condition: FAIR Instructions: Diarrhea in Adolescents and Adults, Acute Abdomen (Belly Pain)
[2018-07-19 03:01] LABS: BASO # 0.3 K/uL (0.0-0.2); BASO % 1.3 % (0.0-2.0); EOS % 0.2 % (0.0-4.0); HEMOGLOBIN 15.9 g/dL (12.0-16.0); LYMPH # 1.4 K/uL (1.0-4.3); LYMPH % 6.9 % (20.0-40.0); MEAN CELL VOLUME 86.2 fl (81.0-99.0); MEAN CORPUSCULAR HEMOGLOBIN 29.8 pg (27.0-31.0); MEAN CORPUSCULAR HGB CONC 34.6 g/dL (33.0-37.0); MEAN PLATELET VOLUME 8.6 fl (7.2-11.7); MONO # 0.7 K/uL (0.0-0.8); MONO % 3.6 % (0.0-10.0); NEUT # 17.4 K/uL (1.8-7.0); PLATELET COUNT 358 K/uL (130-400); RBC 5.32 Mil/uL (3.80-5.20); RED CELL DISTRIBUTION WIDTH 17.8 % (11.5-14.5); WHITE BLOOD COUNT 19.8 K/uL (4.8-10.8)
[2018-07-19] MEDS ORDERED: Iohexol 240 (50 ml) PO ONE (03:37)
[2018-07-19] MEDS ORDERED: Iohexol 240 (50 ml) ONE (04:59)
[2018-07-19 05:02] LABS: BANDS 1 % (0-2); BASOPHIL 1 % (0-2); LYMPHOCYTE 11 % (20-50); MONOCYTE 2 % (0-10); NEUTROPHIL 85 % (42-75); TOTAL CELLS COUNTED 100
[2018-07-19 05:03] LABS: PLATELET ESTIMATE NORMAL (NORMAL)
[2018-07-19 05:04] LABS: ANISOCYTOSIS SLIGHT; BURR CELLS SLIGHT; HYPOCHROMIC SLIGHT
[2018-07-19 05:08] LABS: ALB/GLOB RATIO 1.3 (1.0-2.1); ALBUMIN 3.2 g/dL (3.5-5.0); ALT/SGPT 24 U/L (9-52); AST/SGOT 15 U/L (14-36); BLOOD UREA NITROGEN 7 mg/dl (7-17); CALCIUM 8.9 mg/dL (8.4-10.2); GFR NON-AFRICAN AMERICAN > 60
[2018-07-19] MEDS ORDERED: Potassium Chloride 20 mEq ER Tab PO ONE ×2 (05:15→05:37)
[2018-07-19] MEDS ORDERED: Sodium Chloride 0.9% 1,000 ML IV STA (05:18)
[2018-07-19 06:37] LABS: ABG ALLEN TEST YES; ARTERIAL BLOOD GAS HCO3 30.7 mmol/L (21-28); ARTERIAL BLOOD GAS O2 SAT 98.1 % (95-98); ARTERIAL BLOOD GAS PCO2 50 mm/Hg (35-45); ARTERIAL BLOOD GAS PH 7.43 (7.35-7.45); ARTERIAL BLOOD GAS PO2 75 mm/Hg (80-100); ARTERIAL BLOOD GAS TCO2 34.7 mmol/L (22-28)
[2018-07-19] MEDS ORDERED: Iohexol 300 100 ML IJ ONE (08:49)
[2018-07-19] MEDS ORDERED: Sodium Chloride 0.9% 50 ML IV ONE (08:49)
--- NOTE | 2018-07-19 10:55 | CT ---
Date of service: 07/19/2018 PROCEDURE: CT abdomen and pelvis. HISTORY: Abdominal pain/diarrhea COMPARISON: No prior study available comparison TECHNIQUE: Contiguous axial images of the abdomen and pelvis performed of following oral and intravenous injection of approximately 95 cc Omnipaque 300 contrast material. . Additional 2D sagittal and coronal reformats generated Radiation dose: Total exam DLP = 451.74 mGy-cm. This CT exam was performed using one or more of the following dose reduction techniques: Automated exposure control, adjustment of the mA and/or kV according to patient size, and/or use of iterative reconstruction technique. FINDINGS: LOWER THORAX: Heart size is upper limits of normal. No significant pericardial effusion. The there appears to be localized mild scarring change in the left lingular region. The the LIVER: Liver exhibits normal size. No obvious hepatic mass collection or calcification. Mild diffuse fatty hepatic infiltration. Portal and splenic veins are opacified. GALLBLADDER AND BILE DUCTS: Cholelithiasis with mild wall thickening of the gallbladder wall on may in part be due to incomplete distention however rule out cholecystitis. PANCREAS: Pancreas is atrophic and fatty replaced. No obvious pancreatic mass collection or calcification. SPLEEN: Unremarkable. No splenomegaly. ADRENALS: No adrenal lesions KIDNEYS AND URETERS: The kidneys exhibit symmetric nephrograms. No evidence of nephrolithiasis or hydronephrosis. There is a rounded approximately 12.5 mm low-attenuation focus within the lateral cortex mid pole left kidney that exhibits Hounsfield units in the mid 20s and could represent hyperdense cyst. BLADDER: Urinary bladder incompletely distended which may in part account for thick-walled appearance. Possibility of cystitis not excluded. REPRODUCTIVE: Unremarkable. APPENDIX: Appendix is not seen with complete certainty however no obvious inflammatory changes right lower quadrant of the abdomen. BOWEL: Evaluation of the bowel is somewhat limited due to incomplete opacification. The stomach is collapsed. Visualized loops of small bowel exhibit some fecalized content. There is a very large amount of stool throughout most of the colon with the exception of short segment of distal transverse and proximal descending colon which are incompletely distended the although exhibit thick-walled appearance. Findings could represent a localize colitis despite findings consistent with fecal impaction. Rule out stercoral colitis. . PERITONEUM: Unremarkable. No fluid collection. No free air. LYMPH NODES: Unremarkable. No enlarged lymph nodes. VASCULATURE: Unremarkable. No aortic aneurysm. BONES: Multilevel degenerative spondylosis of the lower thoracic and lumbar spine. OTHER FINDINGS: None. IMPRESSION: Findings consistent with fecal impaction. There is however short segment of distal transverse and proximal descending colon which are incompletely distended the although exhibit thick-walled appearance. Findings could represent a localize colitis despite findings consistent with fecal impaction. Rule out stercoral colitis. . . Mild fatty hepatic infiltration. Cholelithiasis with minimal gallbladder wall thickening that could be due to incomplete distention however rule out cholecystitis. See above discussion for additional findings and details.
[2018-07-19] MEDS ORDERED: Piperacillin/Tazobact 3.375 GM in Sodium Chloride 0.9% 100 ML IVPB STA (11:00)
--- NOTE | 2018-07-19 11:11 | ED PDOC ---
- Laboratory Results Result Diagrams: 07/19/18 02:56 07/19/18 04:53 - ECG O2 Sat by Pulse Oximetry: 99 Disposition - Clinical Impression Clinical Impression: Abdominal pain, Diarrhea, Hypokalemia, Cholecystitis - POA Present On Arrival: None - Disposition Disposition: Admitted as In-Patient Disposition Time: 11:11 Condition: FAIR Instructions: Diarrhea in Adolescents and Adults, Acute Abdomen (Belly Pain)
[2018-07-19] MEDS ORDERED: Piperacillin/Tazobact 3.375 gm Inj IVPB ONE (11:41)
--- NOTE | 2018-07-19 11:54 | CP.PCM.CON ---
<James Ng - Last Filed: 07/19/18 12:07> History of Present Illness - History of Present Illness History of Present Illness: General Surgery Consult Re: cholecystitis HPI: 68F presented to the ED complaining of diarrhea x 6 weeks with abdominal pain x 1 week. Unable to hold BM in. Occasional blood seen in toilet, Poor appetite. She has occasional nausea without emesis which is relieved with standing and then having diarrhea after that. She also reports 50 lb kev loss in the last year. No pain with eating. Denies F/C, emesis, SOB, chest pain, dysuria, hematuria. No prior colonoscopy. PMH: Anxiety, Asthma, Bipolar Disorder, CAD, CHF, COPD, CVA (no deficits), Dementia, Depression, DM, HTN, HLD, Schizophrenia PSH: CABG, Carotid Endarterectomy, R Hernia repair (? ventral) SH: Smoker, No EtOH or drug use. Homeless. FH: Non contributory All: ibuprofen, codeine, Benadryl, meperidine, naproxen Meds: See MAR Review of Systems - Review of Systems All systems: reviewed and no additional remarkable complaints except (as per HPI ) Past Patient History - Past Medical History & Family History Past Medical History?: Yes - Past Social History Smoking Status: Current Some Days Smoker - CARDIAC Hx Congestive Heart Failure: Yes Hx Hypercholesterolemia: Yes Hx Hypertension: Yes Hx Pacemaker: No - PULMONARY Hx Asthma: Yes Hx Chronic Obstructive Pulmonary Disease (COPD): Yes - NEUROLOGICAL Hx Dementia: Yes - HEENT Hx HEENT Problems: No - RENAL Hx Chronic Kidney Disease: No - ENDOCRINE/METABOLIC Hx Endocrine Disorders: Yes Hx Diabetes Mellitus Type 2: Yes - HEMATOLOGICAL/ONCOLOGICAL Hx Human Immunodeficiency Virus (HIV): No - INTEGUMENTARY Hx Dermatological Problems: No - MUSCULOSKELETAL/RHEUMATOLOGICAL Hx Musculoskeletal Disorders: No Hx Falls: No - GASTROINTESTINAL Hx Gastrointestinal Disorders: No - GENITOURINARY/GYNECOLOGICAL Hx Genitourinary Disorders: No - PSYCHIATRIC Hx Anxiety: Yes Hx Bipolar Disorder: Yes Hx Depression: Yes Hx Schizophrenia: Yes - SURGICAL HISTORY Hx Carotid Endarterectomy: Yes Hx Coronary Artery Bypass Graft: Yes - ANESTHESIA Hx Anesthesia: Yes Hx Anesthesia Reactions: No Hx Malignant Hyperthermia: No Meds Allergies/Adverse Reactions: Allergies Allergy/AdvReac Type Severity Reaction Status Date / Time codeine Allergy RASH Verified 07/19/18 02:24 diphenhydramine Allergy RASH Verified 07/19/18 02:24 [From Benadryl] ibuprofen [From Motrin] Allergy RASH Verified 07/19/18 02:24 meperidine Allergy RASH Verified 07/19/18 02:24 naproxen Allergy RASH Verified 07/19/18 02:24 - Medications Medications: Current Medications Piperacillin Sod/Tazobactam (Sod 3.375 gm/ Sodium Chloride) 100 mls @ 100 mls/ hr IVPB STAT STA PRN Reason: Protocol Stop: 07/19/18 11:59 Physical Exam - Constitutional Appears: Non-toxic, No Acute Distress - Head Exam Head Exam: ATRAUMATIC, NORMOCEPHALIC - Eye Exam Eye Exam: EOMI. absent: Scleral icterus - ENT Exam ENT Exam: Mucous Membranes Dry Additional comments: trachea midline - Respiratory Exam Respiratory Exam: NORMAL BREATHING PATTERN. absent: Respiratory Distress - Cardiovascular Exam Cardiovascular Exam: +S1, +S2. absent: Bradycardia, Tachycardia - GI/Abdominal Exam GI & Abdominal Exam: Soft, Tenderness (worst in midline abd, suprapubic and epigastric). absent: Distended, Firm, Guarding, Rebound, Rigid Additional comments: Negative murphys sign, minimal RUQ TTP Old RLQ incision, well healed Palpable colon with stool inside - Rectal Exam Rectal Exam: Deferred (pt wanted to use the bathroom and declined at this time) - Extremities Exam Extremities exam: Positive for: normal capillary refill, pedal edema, tenderness (b/l feet). Negative for: calf tenderness - Back Exam Back exam: absent: CVA tenderness (L), CVA tenderness (R) - Neurological Exam Neurological exam: Alert, Oriented x3 - Skin Skin Exam: Dry, Warm Results - Vital Signs Recent Vital Signs: Last Vital Signs Temp 98 F 07/19/18 09:20 Pulse 73 07/19/18 09:20 Resp 16 07/19/18 09:20 BP 175/80 H 07/19/18 09:20 Pulse Ox 99 07/19/18 11:11 - Labs Result Diagrams: 07/19/18 02:56 07/19/18 04:53 Labs: Laboratory Results - last 24 hr 07/19/18 07/19/18 07/19/18 02:56 02:56 04:53 WBC 19.8 H D RBC 5.32 H Hgb 15.9 D Hct 45.9 MCV 86.2 D MCH 29.8 MCHC 34.6 RDW 17.8 H Plt Count 358 MPV 8.6 Neut % (Auto) 88.0 H Lymph % (Auto) 6.9 L [place] % (Auto) 3.6 Eos % (Auto) 0.2 Baso % (Auto) 1.3 Neut # (Auto) 17.4 H Lymph # (Auto) 1.4 [place] # (Auto) 0.7 Eos # (Auto) 0.0 Baso # (Auto) 0.3 H Neutrophils % (Manual) 85 H Band Neutrophils % 1 Lymphocytes % (Manual) 11 L Monocytes % (Manual) 2 Basophils % (Manual) 1 Platelet Estimate Normal Hypochromasia (manual) Slight Anisocytosis (manual) Slight [place] Cells Slight pCO2 pO2 HCO3 ABG pH ABG Total CO2 ABG O2 Saturation ABG Base Excess Kaden Test ABG Potassium A-a O2 Difference Glucose Lactate FiO2 Sodium 134 Potassium 2.8 L Chloride 103 Carbon Dioxide 28 Anion Gap 6 L BUN 7 Creatinine 0.3 L Est GFR ( Amer) > 60 Est GFR (Non-Af Amer) > 60 Random Glucose 266 H Calcium 8.9 Magnesium 1.7 Total Bilirubin 0.4 AST 15 ALT 24 Alkaline Phosphatase 104 Total Protein 5.8 L Albumin 3.2 L Globulin 2.6 Albumin/Globulin Ratio 1.3 Lipase 134 Arterial Blood Potassium 07/19/ 06:13 WBC RBC Hgb Hct MCV MCH MCHC RDW Plt Count MPV Neut % (Auto) Lymph % (Auto) [place] % (Auto) Eos % (Auto) Baso % (Auto) Neut # (Auto) Lymph # (Auto) [place] # (Auto) Eos # (Auto) Baso # (Auto) Neutrophils % (Manual) Band Neutrophils % Lymphocytes % (Manual) Monocytes % (Manual) Basophils % (Manual) Platelet Estimate Hypochromasia (manual) Anisocytosis (manual) [place] Cells pCO2 50 H pO2 75 L HCO3 30.7 H ABG pH 7.43 ABG Total CO2 34.7 H ABG O2 Saturation 98.1 H ABG Base Excess 7.6 H Kaden Test Yes ABG Potassium 2.8 L A-a O2 Difference 12.0 Glucose 235 H Lactate 0.9 FiO2 21.0 Sodium 134.0 Potassium Chloride 101.0 Carbon Dioxide Anion Gap BUN Creatinine Est GFR ( Amer) Est GFR (Non-Af Amer) Random Glucose Calcium Magnesium Total Bilirubin AST ALT Alkaline Phosphatase Total Protein Albumin Globulin Albumin/Globulin Ratio Lipase Arterial Blood Potassium 2.8 L - Imaging and Cardiology CT scan - abdomen Status: Image reviewed by me, Report reviewed by me Assessment & Plan - Assessment and Plan (Free Text) Assessment: 68F with constipation and cholelithiasis Plan: Pt is having diarrhea around her impacted stool. Needs repletion of potassium Tap water enemas PO stool softeners. May need manual disimpaction after enemas D/W Dr. Kal Ng PGY4 <Homero Bowden - Last Filed: 07/19/18 19:53> History of Present Illness - History of Present Illness History of Present Illness: Patient was seen and examined at the bedside. Agree with resident's note above. Meds - Medications Medications: Current Medications Dextrose (Dextrose 50% Inj) 0 ml IV PRN PRN; Protocol PRN Reason: Hypoglycemia Protocol Dextrose (Glutose 15) 0 gm PO ONCE PRN; Protocol PRN Reason: Hypoglycemia Protocol Docusate Sodium (Colace) 100 mg PO BID [facility] Last Admin: 07/19/18 16:56 Dose: 100 mg Enoxaparin Sodium (Lovenox) 40 mg SC DAILY [facility] PRN Reason: Protocol Glucagon (Glucagen Diagnostic Kit) 0 mg IM PRN PRN; Protocol PRN Reason: Hypoglycemia Protocol Potassium Chloride/Dextrose/Sod Cl (Potassium Chl 20 Meq In D5-1/2ns) 1,000 mls @ 100 mls/hr IV .Q10H [facility] Stop: 07/20/18 12:35 Last Admin: 07/19/18 13:50 Dose: 100 mls/hr Piperacillin Sod/Tazobactam (Sod 3.375 gm/ Sodium Chloride) 100 mls @ 100 mls/ hr IVPB Q6 NESSA PRN Reason: Protocol Ketorolac Tromethamine (Toradol) 15 mg IVP Q6 PRN PRN Reason: Pain, severe (8-10) Pantoprazole Sodium (Protonix Ec Tab) 40 mg PO DAILY [facility] Fluticasone/Salmeterol (Advair Diskus 250/50) 1 puff IH Q12 [facility] Physical Exam - GI/Abdominal Exam Additional comments: soft, very minimally tender in lower abdomen, ND, BS hypoactive, no rebound, no guarding, well healed scars from prior surgeries Results - Vital Signs Recent Vital Signs: Last Vital Signs Temp 98.2 F 07/19/18 16:51 Pulse 73 07/19/18 19:16 Resp 18 07/19/18 19:16 BP 159/65 H 07/19/18 17:51 Pulse Ox 95 07/19/18 19:16 - Labs Result Diagrams: 07/19/18 02:56 07/19/18 04:53 Labs: Laboratory Results - last 24 hr 07/19/18 07/19/18 07/19/18 02:56 02:56 04:53 WBC 19.8 H D RBC 5.32 H Hgb 15.9 D Hct 45.9 MCV 86.2 D MCH 29.8 MCHC 34.6 RDW 17.8 H Plt Count 358 MPV 8.6 Neut % (Auto) 88.0 H Lymph % (Auto) 6.9 L [place] % (Auto) 3.6 Eos % (Auto) 0.2 Baso % (Auto) 1.3 Neut # (Auto) 17.4 H Lymph # (Auto) 1.4 [place] # (Auto) 0.7 Eos # (Auto) 0.0 Baso # (Auto) 0.3 H Neutrophils % (Manual) 85 H Band Neutrophils % 1 Lymphocytes % (Manual) 11 L Monocytes % (Manual) 2 Basophils % (Manual) 1 Platelet Estimate Normal Hypochromasia (manual) Slight Anisocytosis (manual) Slight [place] Cells Slight pCO2 pO2 HCO3 ABG pH ABG Total CO2 ABG O2 Saturation ABG Base Excess Kaden Test ABG Potassium A-a O2 Difference Glucose Lactate FiO2 Sodium 134 Potassium 2.8 L Chloride 103 Carbon Dioxide 28 Anion Gap 6 L BUN 7 Creatinine 0.3 L Est GFR ( Amer) > 60 Est GFR (Non-Af Amer) > 60 POC Glucose (mg/dL) Random Glucose 266 H Calcium 8.9 Magnesium 1.7 Total Bilirubin 0.4 AST 15 ALT 24 Alkaline Phosphatase 104 Total Protein 5.8 L Albumin 3.2 L Globulin 2.6 Albumin/Globulin Ratio 1.3 Lipase 134 Arterial Blood Potassium 07/19/18 07/19/18 06:13 16:53 WBC RBC Hgb Hct MCV MCH MCHC RDW Plt Count MPV Neut % (Auto) Lymph % (Auto) [place] % (Auto) Eos % (Auto) Baso % (Auto) Neut # (Auto) Lymph # (Auto) [place] # (Auto) Eos # (Auto) Baso # (Auto) Neutrophils % (Manual) Band Neutrophils % Lymphocytes % (Manual) Monocytes % (Manual) Basophils % (Manual) Platelet Estimate Hypochromasia (manual) Anisocytosis (manual) [place] Cells pCO2 50 H pO2 75 L HCO3 30.7 H ABG pH 7.43 ABG Total CO2 34.7 H ABG O2 Saturation 98.1 H ABG Base Excess 7.6 H Kaden Test Yes ABG Potassium 2.8 L A-a O2 Difference 12.0 Glucose 235 H Lactate 0.9 FiO2 21.0 Sodium 134.0 Potassium Chloride 101.0 Carbon Dioxide Anion Gap BUN Creatinine Est GFR ( Amer) Est GFR (Non-Af Amer) POC Glucose (mg/dL) 209 H Random Glucose Calcium Magnesium Total Bilirubin AST ALT Alkaline Phosphatase Total Protein Albumin Globulin Albumin/Globulin Ratio Lipase Arterial Blood Potassium 2.8 L Assessment & Plan - Assessment and Plan (Free Text) Plan: - Recommend GI consultation - Clear liquid diet - No general surgery intervention at present time - Repeat labs in am - will follow
[2018-07-19] MEDS: Potassium Ch 20mEq in D5-1/2NS 1,000 ML IV SCH (13:50)
--- NOTE | 2018-07-19 14:27 | CP.PCM.PN ---
Subjective - Date & Time of Evaluation Date of Evaluation: 07/19/18 Time of Evaluation: 13:58 - Subjective Subjective: HPI obtained from patient and EMR: 68 year old female presents to ED with worsening abdominal pain, nausea without vomiting. Last BM today, diarrhea. Having chills, but denies having fevers/ night sweats, no urinary symptoms. She reports history of constipation but has had 'diarrhea' for past few days. She states since she has been living in the assisted she has been unable to have normal bowel movements. Endorses having sunburn on bilteral lower extremities anteriorly, has not applied any treatment to this. ROS: negative for headaches, dizziness, chest pain, dyspnea, cough, no dysuria, no malodorous urine, pedal edema. Person to Notify: Ki Tucker: [phone] Code Status: Full code. Would not want to live on vent. Objective - Vital Signs/Intake and Output Vital Signs (last 24 hours): Temp Pulse Resp BP Pulse Ox 98 F 73 16 175/80 H 99 07/19/18 12:18 07/19/18 12:18 07/19/18 12:18 07/19/18 12:18 07/19/18 11:11 - Medications Medications: Current Medications Docusate Sodium (Colace) 100 mg PO BID [facility]ES[facility] Potassium Chloride/Dextrose/Sod Cl (Potassium Chl 20 Meq In D5-1/2ns) 1,000 mls @ 100 mls/hr IV .Q10H NESSA Stop: 07/20/18 12:35 Last Admin: 07/19/18 13:50 Dose: 100 mls/hr - Labs Labs: 07/19/18 02:56 07/19/18 04:53
--- NOTE | 2018-07-19 15:44 | CP.PCM.HP ---
History of Present Illness - History of Present Illness History of Present Illness: Patient seen in ED with attending. 68 year old female presents to ED with worsening abdominal pain, nausea without vomiting. Last BM today, diarrhea. Having chills, but denies having fevers/ night sweats, no urinary symptoms. She reports history of constipation but has had 'diarrhea' for past few days. She states since she has been living in the skilled nursing she has been unable to have normal bowel movements. Endorses having sunburn on bilteral lower extremities anteriorly, has not applied any treatment to this. ROS: negative for headaches, dizziness, chest pain, dyspnea, cough, no dysuria, no malodorous urine, pedal edema. Person to Notify: Ki Tucker: [phone] Code Status: Full code. Would not want to live on vent. Present on Admission - Present on Admission Any Indicators Present on Admission: No Review of Systems - Constitutional Constitutional: Chills. absent: Fever, Weight Gain, Weight Loss - Cardiovascular Cardiovascular: absent: Chest Pain, Dyspnea, Palpitations - Respiratory Respiratory: absent: Cough, Dyspnea - Gastrointestinal Gastrointestinal: Abdominal Pain, Constipation, Diarrhea, Nausea. absent: Vomiting - Genitourinary Genitourinary: absent: Difficulty Urinating, Dysuria, Nocturia, Urinary Incontinence, Urinary Frequency - Neurological Neurological: absent: Dizziness, Focal Weakness - Psychiatric Psychiatric: absent: Anxiety, Confusion, Depression Past Patient History - Infectious Disease Hx of Infectious Diseases: None - Past Medical History & Family History Past Medical History?: Yes - Past Social History Smoking Status: Current Some Days Smoker - CARDIAC Hx Cardiac Disorders: Yes Hx Hypercholesterolemia: Yes Hx Hypertension: Yes Hx Pacemaker: No - PULMONARY Hx Asthma: Yes Hx Chronic Obstructive Pulmonary Disease (COPD): Yes - NEUROLOGICAL Hx Dementia: Yes - HEENT Hx HEENT Problems: No - RENAL Hx Chronic Kidney Disease: No - ENDOCRINE/METABOLIC Hx Endocrine Disorders: Yes Hx Diabetes Mellitus Type 2: Yes - HEMATOLOGICAL/ONCOLOGICAL Hx Human Immunodeficiency Virus (HIV): No - INTEGUMENTARY Hx Dermatological Problems: No - MUSCULOSKELETAL/RHEUMATOLOGICAL Hx Musculoskeletal Disorders: No Hx Falls: No - GASTROINTESTINAL Hx Gastrointestinal Disorders: No - GENITOURINARY/GYNECOLOGICAL Hx Genitourinary Disorders: No - PSYCHIATRIC Hx Anxiety: Yes Hx Bipolar Disorder: Yes Hx Depression: Yes Hx Schizophrenia: Yes - SURGICAL HISTORY Hx Carotid Endarterectomy: Yes Hx Coronary Artery Bypass Graft: Yes - ANESTHESIA Hx Anesthesia: Yes Hx Anesthesia Reactions: No Hx Malignant Hyperthermia: No Meds Allergies/Adverse Reactions: Allergies Allergy/AdvReac Type Severity Reaction Status Date / Time codeine Allergy RASH Verified 07/19/18 02:24 diphenhydramine Allergy RASH Verified 07/19/18 02:24 [From Benadryl] ibuprofen [From Motrin] Allergy RASH Verified 07/19/18 02:24 meperidine Allergy RASH Verified 07/19/18 02:24 naproxen Allergy RASH Verified 07/19/18 02:24 Physical Exam - Constitutional Appears: No Acute Distress (secondary to pain, nausea), Unkempt - Head Exam Head Exam: ATRAUMATIC, NORMAL INSPECTION, NORMOCEPHALIC - Respiratory Exam Respiratory Exam: Clear to Auscultation Bilateral (anteriorly), NORMAL BREATHING PATTERN - Cardiovascular Exam Cardiovascular Exam: REGULAR RHYTHM, +S1, +S2 - GI/Abdominal Exam GI & Abdominal Exam: Diminished Bowel Sounds, Rigid, Tenderness. absent: Distended, Soft - Extremities Exam Extremities exam: Negative for: pedal edema Additional comments: erythema of anterior leg dorsal surface of foot. - Neurological Exam Neurological exam: Alert Results - Vital Signs Recent Vital Signs: Last Vital Signs Temp 98 F 07/19/18 12:18 Pulse 73 07/19/18 12:18 Resp 16 07/19/18 12:18 BP 175/80 H 07/19/18 12:18 Pulse Ox 99 07/19/18 11:11 - Labs Result Diagrams: 07/19/18 02:56 07/19/18 04:53 Labs: Laboratory Results - last 24 hr 07/19/18 07/19/18 07/19/18 02:56 02:56 04:53 WBC 19.8 H D RBC 5.32 H Hgb 15.9 D Hct 45.9 MCV 86.2 D MCH 29.8 MCHC 34.6 RDW 17.8 H Plt Count 358 MPV 8.6 Neut % (Auto) 88.0 H Lymph % (Auto) 6.9 L [place] % (Auto) 3.6 Eos % (Auto) 0.2 Baso % (Auto) 1.3 Neut # (Auto) 17.4 H Lymph # (Auto) 1.4 [place] # (Auto) 0.7 Eos # (Auto) 0.0 Baso # (Auto) 0.3 H Neutrophils % (Manual) 85 H Band Neutrophils % 1 Lymphocytes % (Manual) 11 L Monocytes % (Manual) 2 Basophils % (Manual) 1 Platelet Estimate Normal Hypochromasia (manual) Slight Anisocytosis (manual) Slight [place] Cells Slight pCO2 pO2 HCO3 ABG pH ABG Total CO2 ABG O2 Saturation ABG Base Excess Kaden Test ABG Potassium A-a O2 Difference Glucose Lactate FiO2 Sodium 134 Potassium 2.8 L Chloride 103 Carbon Dioxide 28 Anion Gap 6 L BUN 7 Creatinine 0.3 L Est GFR ( Amer) > 60 Est GFR (Non-Af Amer) > 60 Random Glucose 266 H Calcium 8.9 Magnesium 1.7 Total Bilirubin 0.4 AST 15 ALT 24 Alkaline Phosphatase 104 Total Protein 5.8 L Albumin 3.2 L Globulin 2.6 Albumin/Globulin Ratio 1.3 Lipase 134 Arterial Blood Potassium 07/19/18 06:13 WBC RBC Hgb Hct MCV MCH MCHC RDW Plt Count MPV Neut % (Auto) Lymph % (Auto) [place] % (Auto) Eos % (Auto) Baso % (Auto) Neut # (Auto) Lymph # (Auto) [place] # (Auto) Eos # (Auto) Baso # (Auto) Neutrophils % (Manual) Band Neutrophils % Lymphocytes % (Manual) Monocytes % (Manual) Basophils % (Manual) Platelet Estimate Hypochromasia (manual) Anisocytosis (manual) [place] Cells pCO2 50 H pO2 75 L HCO3 30.7 H ABG pH 7.43 ABG Total CO2 34.7 H ABG O2 Saturation 98.1 H ABG Base Excess 7.6 H Kaden Test Yes ABG Potassium 2.8 L A-a O2 Difference 12.0 Glucose 235 H Lactate 0.9 FiO2 21.0 Sodium 134.0 Potassium Chloride 101.0 Carbon Dioxide Anion Gap BUN Creatinine Est GFR ( Amer) Est GFR (Non-Af Amer) Random Glucose Calcium Magnesium Total Bilirubin AST ALT Alkaline Phosphatase Total Protein Albumin Globulin Albumin/Globulin Ratio Lipase Arterial Blood Potassium 2.8 L Assessment & Plan - Assessment and Plan (Free Text) Assessment: 68 year old female with multiple comorbidities admitted for severe abdominal pain, leukocytosis and severe constipation. Unlikely to be secondary to cholecystitis. She has remained afebrile, nausea resolved after BM but is having chills. #Abdominal pain, likely secondary to constipation with overflow diarrhea, possible colitis -will treat empirically for colitis -enema given in ED with symptomatic relief and bowel movement -will give zosyn empirically -toradol for pain #Hypokalemia -will give replacement potassium and recheck BMP in afternoon -EKG ordered -f/u lab -admit to telemetry #COPD -advair resumed # HTN -uncontrolled -enalapril HCTZ 10-25mg held due to NPO status./hypokalemia #Type 2 Diabetes -hold metformin due to GI symptoms -glizipide to be resumed once patient is not npo #DVT Prophlaxis Lovenox 40mg SC
[2018-07-19] MEDS ORDERED: Metoprolol 1 mg/ml Inj IVP ONE ×2 (17:09→17:17)
[2018-07-19] MEDS ORDERED: Dextrose 50% SYRINGE Inj (50 ml) IV PRN (17:19)
[2018-07-19] MEDS ORDERED: Glucagon Recombinant 1 mg Inj IM PRN (17:19)
[2018-07-19 21:22] LABS: BLOOD UREA NITROGEN 5 mg/dl (7-17); CALCIUM 8.9 mg/dL (8.4-10.2); GFR NON-AFRICAN AMERICAN > 60
[2018-07-19] MEDS: Fluticasone-Salmeterol 250-50mcg Diskus IH SCH (22:08)
[2018-07-19] MEDS: Piperacillin/Tazobact 3.375 GM in Sodium Chloride 0.9% 100 ML IVPB SCH (22:09)
[2018-07-20] MEDS: Potassium Ch 20mEq in D5-1/2NS 1,000 ML IV SCH (00:17)
[2018-07-20] MEDS: Piperacillin/Tazobact 3.375 GM in Sodium Chloride 0.9% 100 ML IVPB SCH ×2 (04:32→09:31)
[2018-07-20 06:45] LABS: BASO # 0.1 K/uL (0.0-0.2); BASO % 1.4 % (0.0-2.0); EOS # 0.1 K/uL (0.0-0.7); EOS % 1.1 % (0.0-4.0); HEMOGLOBIN 11.7 g/dL (12.0-16.0); LYMPH # 1.4 K/uL (1.0-4.3); LYMPH % 16.2 % (20.0-40.0); MEAN CELL VOLUME 88.1 fl (81.0-99.0); MEAN CORPUSCULAR HEMOGLOBIN 29.9 pg (27.0-31.0); MEAN CORPUSCULAR HGB CONC 33.9 g/dL (33.0-37.0); MEAN PLATELET VOLUME 8.5 fl (7.2-11.7); MONO # 0.5 K/uL (0.0-0.8); MONO % 5.2 % (0.0-10.0); NEUT # 6.6 K/uL (1.8-7.0); NEUT % 76.1 % (50.0-75.0); NRBC % 0.1 % (0.0-0.0); RBC 3.93 Mil/uL (3.80-5.20); RED CELL DISTRIBUTION WIDTH 16.6 % (11.5-14.5); WHITE BLOOD COUNT 8.7 K/uL (4.8-10.8)
[2018-07-20 06:48] LABS: BLOOD UREA NITROGEN 5 mg/dl (7-17); CALCIUM 8.5 mg/dL (8.4-10.2); GFR NON-AFRICAN AMERICAN > 60
[2018-07-20] MEDS ORDERED: Potassium Chloride 20 mEq ER Tab PO ONE ×3 (07:31→15:00)
--- NOTE | 2018-07-20 07:52 | CP.PCM.PN ---
<VanceJaclyn - Last Filed: 07/20/18 07:50> Subjective - Date & Time of Evaluation Date of Evaluation: 07/20/18 Time of Evaluation: 07:50 - Subjective Subjective: General Surgery - Dr. Bowden Pt [facility]. [facility]. Pt had one BM yesterday evening which was liquid mixed with solid stool. Her abdominal discomfort is unchanged. She denies any nausea/ vomiting, fevers/chills. Objective - Vital Signs/Intake and Output Vital Signs (last 24 hours): Temp Pulse Resp BP Pulse Ox 98.7 F 77 20 151/65 H 93 L 07/20/18 05:28 07/20/18 05:28 07/20/18 05:28 07/20/18 05:28 07/20/18 05:28 - Medications Medications: Current Medications Dextrose (Dextrose 50% Inj) 0 ml IV PRN PRN; Protocol PRN Reason: Hypoglycemia Protocol Dextrose (Glutose 15) 0 gm PO ONCE PRN; Protocol PRN Reason: Hypoglycemia Protocol Docusate Sodium (Colace) 100 mg PO BID [facility] Last Admin: 07/19/18 16:56 Dose: 100 mg Enoxaparin Sodium (Lovenox) 40 mg SC DAILY [facility] PRN Reason: Protocol Glucagon (Glucagen Diagnostic Kit) 0 mg IM PRN PRN; Protocol PRN Reason: Hypoglycemia Protocol Piperacillin Sod/Tazobactam (Sod 3.375 gm/ Sodium Chloride) 100 mls @ 100 mls/ hr IVPB Q6 [facility]SA PRN Reason: Protocol Last Admin: 07/20/18 04:32 Dose: 100 mls/hr Ketorolac Tromethamine (Toradol) 15 mg IVP Q6 PRN PRN Reason: Pain, severe (8-10) Last Admin: 07/20/18 04:34 Dose: 15 mg Pantoprazole Sodium (Protonix Ec Tab) 40 mg PO DAILY [facility] Fluticasone/Salmeterol (Advair Diskus 250/50) 1 puff IH Q12 [facility] Last Admin: 07/19/18 22:08 Dose: 1 puff - Labs Labs: 07/20/18 05:30 07/20/18 05:30 - Constitutional Appears: No Acute Distress - Head Exam Head Exam: ATRAUMATIC, NORMAL INSPECTION, NORMOCEPHALIC - Eye Exam Eye Exam: Normal appearance - Respiratory Exam Respiratory Exam: NORMAL BREATHING PATTERN. absent: Respiratory Distress - Cardiovascular Exam Cardiovascular Exam: REGULAR RHYTHM - GI/Abdominal Exam GI & Abdominal Exam: Soft. absent: Distended, Firm, Guarding, Tenderness, Rebound - Neurological Exam Neurological Exam: Alert, Oriented x3 - Psychiatric Exam Psychiatric exam: Normal Affect, Normal Mood - Skin Skin Exam: Dry, Intact Assessment and Plan - Assessment and Plan (Free Text) Assessment: 68F with constipation and cholelithiasis Plan: -Tap water enemas q6h -Replete electrolytes prn -Stool softeners -Clear liquid diet -May need manual disimpaction if enemas unsuccessful D/W Dr. Kal Woodard PGY4 <Homero Bowden - Last Filed: 07/20/18 15:49> Subjective - Date & Time of Evaluation Time of Evaluation: 15:30 - Subjective Subjective: Patient was seen and examined at the bedside. Agree with resident's note above. Denies any abdominal pain, passing flatus and having bowel movements that are becoming more solid. States that feels hungry. Objective - Vital Signs/Intake and Output Vital Signs (last 24 hours): Temp Pulse Resp BP Pulse Ox 98.5 F 68 20 157/62 H 95 07/20/18 12:39 07/20/18 12:39 07/20/18 12:39 07/20/18 12:39 07/20/18 12:39 - Medications Medications: Current Medications Dextrose (Dextrose 50% Inj) 0 ml IV PRN PRN; Protocol PRN Reason: Hypoglycemia Protocol Dextrose (Glutose 15) 0 gm PO ONCE PRN; Protocol PRN Reason: Hypoglycemia Protocol Docusate Sodium (Colace) 100 mg PO BID [facility] Last Admin: 07/20/18 09:32 Dose: 100 mg Enoxaparin Sodium (Lovenox) 40 mg SC DAILY [facility] PRN Reason: Protocol Last Admin: 07/20/18 09:32 Dose: 40 mg Glucagon (Glucagen Diagnostic Kit) 0 mg IM PRN PRN; Protocol PRN Reason: Hypoglycemia Protocol Insulin Human Lispro (Humalog) 0 units SC ACHS [facility] PRN Reason: Protocol Ketorolac Tromethamine (Toradol) 15 mg IVP Q6 PRN PRN Reason: Pain, severe (8-10) Last Admin: 07/20/18 09:35 Dose: 15 mg Pantoprazole Sodium (Protonix Ec Tab) 40 mg PO DAILY [facility] Last Admin: 07/20/18 09:33 Dose: 40 mg Fluticasone/Salmeterol (Advair Diskus 250/50) 1 puff IH Q12 [facility] Last Admin: 07/20/18 09:32 Dose: 1 puff - Labs Labs: 07/20/18 05:30 07/20/18 11:25 - GI/Abdominal Exam Additional comments: soft, NT, ND, BS+, no rebound, no guarding Assessment and Plan - Assessment and Plan (Free Text) Plan: - start regular diet - Continue enemas as needed - GI follow up - No general surgery intervention at present time - Continue care as per medical team - General surgery will sign off - Please re-consult as needed
[2018-07-20] MEDS: Fluticasone-Salmeterol 250-50mcg Diskus IH SCH ×2 (09:32→22:06)
[2018-07-20] MEDS: Enoxaparin 40 mg Syringe SC SCH (09:32)
[2018-07-20] MEDS: Pantoprazole 40 mg EC Tab PO SCH (09:33)
--- NOTE | 2018-07-20 09:36 | CP.PCM.PN ---
Subjective - Date & Time of Evaluation Date of Evaluation: 07/20/18 Time of Evaluation: 09:34 - Subjective Subjective: Patient states she still has pain, sometimes has headache. Requesting tuna sandwich. Does not want to speak to the rfp writer unless she is given a tuna sandwich. Tolerating clear liquid diet. States she was evicted 3 weeks ago and [facility], does not want to talk about it. 1 BM after enema yesterday, and one BM overnight. Objective - Vital Signs/Intake and Output Vital Signs (last 24 hours): Temp Pulse Resp BP Pulse Ox 97.6 F 64 18 158/78 H 97 07/20/18 08:11 07/20/18 08:11 07/20/18 08:11 07/20/18 08:11 07/20/18 08:11 - Medications Medications: Current Medications Dextrose (Dextrose 50% Inj) 0 ml IV PRN PRN; Protocol PRN Reason: Hypoglycemia Protocol Dextrose (Glutose 15) 0 gm PO ONCE PRN; Protocol PRN Reason: Hypoglycemia Protocol Docusate Sodium (Colace) 100 mg PO BID [facility] Last Admin: 07/19/18 16:56 Dose: 100 mg Enoxaparin Sodium (Lovenox) 40 mg SC DAILY [facility] PRN Reason: Protocol Glucagon (Glucagen Diagnostic Kit) 0 mg IM PRN PRN; Protocol PRN Reason: Hypoglycemia Protocol Piperacillin Sod/Tazobactam (Sod 3.375 gm/ Sodium Chloride) 100 mls @ 100 mls/ hr IVPB Q6 [facility] PRN Reason: Protocol Last Admin: 07/20/18 04:32 Dose: 100 mls/hr Ketorolac Tromethamine (Toradol) 15 mg IVP Q6 PRN PRN Reason: Pain, severe (8-10) Last Admin: 07/20/18 04:34 Dose: 15 mg Pantoprazole Sodium (Protonix Ec Tab) 40 mg PO DAILY [facility] Fluticasone/Salmeterol (Advair Diskus 250/50) 1 puff IH Q12 [facility] Last Admin: 07/19/18 22:08 Dose: 1 puff - Labs Labs: 07/20/18 05:30 07/20/18 05:30 - Constitutional Appears: Non-toxic, No Acute Distress, Unkempt - Head Exam Head Exam: ATRAUMATIC, NORMAL INSPECTION, NORMOCEPHALIC - Respiratory Exam Respiratory Exam: NORMAL BREATHING PATTERN - Cardiovascular Exam Cardiovascular Exam: REGULAR RHYTHM. absent: Tachycardia - GI/Abdominal Exam GI & Abdominal Exam: Soft. absent: Distended, Tenderness - Neurological Exam Neurological Exam: Alert, Awake - Psychiatric Exam Psychiatric exam: Agitated Assessment and Plan - Assessment and Plan (Free Text) Assessment: 68 year old female with multiple comorbidities admitted for severe abdominal pain, leukocytosis and severe constipation. On clear liquid diet and tolerating. Enemas q6. #Abdominal pain, likely secondary to constipation with overflow diarrhea -improving -unlikely colitis, leukocyotisis resolved. -will d/c iv antibiotics -toradol for pain -q6 enemas, repeat BMP in afternoon to monitor electrolytes #Hypokalemia -improving -replete prn -BMP in AM #COPD chronic, asymptomatic -advair resumed # HTN -uncontrolled -enalapril HCTZ 10-25mg -meds held for now #Type 2 Diabetes -hold metformin due to GI symptoms -glizipide held -insulin sliding scale orderd -uncontrolled : HGA1c: 04/25/18: 9.0% -once tolerating reg diet will resume PO meds #DVT Prophlaxis Lovenox 40mg SC
[2018-07-20 11:43] LABS: BLOOD UREA NITROGEN 4 mg/dl (7-17); CALCIUM 8.6 mg/dL (8.4-10.2); GFR NON-AFRICAN AMERICAN > 60
--- NOTE | 2018-07-20 12:10 | CARD ---
APPROVED REPORT Date of service: 07/19/2018 <Conclusion> Normal sinus rhythm Right atrial enlargement Left anterior fascicular block Abnormal ECG
[2018-07-20] MEDS: Insulin Lispro (humaLOG) 100 Units/ml Inj SC SCH ×2 (17:56→21:59)
[2018-07-20] MEDS ORDERED: Albuterol-Ipratrop 3 mg / 0.5 (3 ml) UD INH PRN (18:37)
[2018-07-21 05:29] VITALS: O2SAT 96
[2018-07-21] MEDS: Insulin Lispro (humaLOG) 100 Units/ml Inj SC SCH (06:38)
[2018-07-21 08:04] VITALS: BP 157/66; PULSE 71; RESP 20; TEMP 98.8
[2018-07-21] MEDS: Fluticasone-Salmeterol 250-50mcg Diskus IH SCH (08:42)
[2018-07-21] MEDS: Pantoprazole 40 mg EC Tab PO SCH (08:43)
[2018-07-21] MEDS: Enoxaparin 40 mg Syringe SC SCH (08:44)
[2018-07-21 08:56] LABS: BLOOD UREA NITROGEN 4 mg/dl (7-17); GFR NON-AFRICAN AMERICAN > 60
--- NOTE | 2018-07-21 09:36 | CP.PCM.DIS ---
Provider - Provider Date of Admission: 07/19/18 11:09 Attending physician: Germania Honeycutt MD Time Spent in preparation of Discharge (in minutes): 35 Diagnosis - Discharge Diagnosis (1) Leukocytosis Status: Acute (2) Abdominal pain Status: Acute (3) Hypokalemia Status: Acute (4) Constipation Status: Acute Hospital Course - Lab Results Lab Results: Micro Results 07/19/18 12:00 Blood-Venous Blood Culture - Preliminary NO GROWTH AFTER 24 HOURS Most Recent Lab Values WBC 8.7 K/uL (4.8-10.8) D 07/20/18 05:30 RBC 3.93 Mil/uL (3.80-5.20) 07/20/18 05:30 Hgb 11.7 g/dL (12.0-16.0) L D 07/20/18 05:30 Hct 34.6 % (34.0-47.0) 07/20/18 05:30 MCV 88.1 fl (81.0-99.0) 07/20/18 05:30 MCH 29.9 pg (27.0-31.0) 07/20/18 05:30 MCHC 33.9 g/dL (33.0-37.0) 07/20/18 05:30 RDW 16.6 % (11.5-14.5) H 07/20/18 05:30 Plt Count 263 K/uL (130-400) 07/20/18 05:30 MPV 8.5 fl (7.2-11.7) 07/20/18 05:30 Neut % (Auto) 76.1 % (50.0-75.0) H 07/20/18 05:30 Lymph % (Auto) 16.2 % (20.0-40.0) L 07/20/18 05:30 [place] % (Auto) 5.2 % (0.0-10.0) 07/20/18 05:30 Eos % (Auto) 1.1 % (0.0-4.0) 07/20/18 05:30 Baso % (Auto) 1.4 % (0.0-2.0) 07/20/18 05:30 Neut # (Auto) 6.6 K/uL (1.8-7.0) 07/20/18 05:30 Lymph # (Auto) 1.4 K/uL (1.0-4.3) 07/20/18 05:30 [place] # (Auto) 0.5 K/uL (0.0-0.8) 07/20/18 05:30 Eos # (Auto) 0.1 K/uL (0.0-0.7) 07/20/18 05:30 Baso # (Auto) 0.1 K/uL (0.0-0.2) 07/20/18 05:30 Neutrophils % (Manual) 85 % (42-75) H 07/19/18 02:56 Band Neutrophils % 1 % (0-2) 07/19/18 02:56 Lymphocytes % (Manual) 11 % (20-50) L 07/19/18 02:56 Monocytes % (Manual) 2 % (0-10) 07/19/18 02:56 Basophils % (Manual) 1 % (0-2) 07/19/18 02:56 Platelet Estimate Normal (NORMAL) 07/19/18 02:56 Hypochromasia (manual) Slight 07/19/18 02:56 Anisocytosis (manual) Slight 07/19/18 02:56 Madeline Cells Slight 07/19/18 02:56 pCO2 50 mm/Hg (35-45) H 07/19/18 06:13 pO2 75 mm/Hg (80-100) L 07/19/18 06:13 HCO3 30.7 mmol/L (21-28) H 07/19/18 06:13 ABG pH 7.43 (7.35-7.45) 07/19/18 06:13 ABG Total CO2 34.7 mmol/L (22-28) H 07/19/18 06:13 ABG O2 Saturation 98.1 % (95-98) H 07/19/18 06:13 ABG Base Excess 7.6 mmol/L (-2.0-3.0) H 07/19/18 06:13 Kaden Test Yes 07/19/18 06:13 ABG Potassium 2.8 mmol/L (3.6-5.2) L 07/19/18 06:13 A-a O2 Difference 12.0 mm/Hg 07/19/18 06:13 Sodium 134.0 mmol/L (132-148) 07/19/18 06:13 Chloride 101.0 mmol/L (98-107) 07/19/18 06:13 Glucose 235 mg/dL (65-105) H 07/19/18 06:13 Lactate 0.9 mmol/L (0.7-2.1) 07/19/18 06:13 FiO2 21.0 % 07/19/18 06:13 Sodium 138 mmol/l (132-148) 07/21/18 08:31 Potassium 4.0 MMOL/L (3.6-5.0) 07/21/18 08:31 Chloride 103 mmol/L (98-107) 07/21/18 08:31 Carbon Dioxide 35 mmol/L (22-30) H 07/21/18 08:31 Anion Gap 4 (10-20) L 07/21/18 08:31 BUN 4 mg/dl (7-17) L 07/21/18 08:31 Creatinine 0.4 mg/dl (0.7-1.2) L 07/21/18 08:31 Est GFR ( Amer) > 60 07/21/18 08:31 Est GFR (Non-Af Amer) > 60 07/21/18 08:31 POC Glucose (mg/dL) 342 mg/dL (65-110) H 07/20/18 21:09 Random Glucose 115 mg/dL (65-105) H 07/21/18 08:31 Calcium 9.0 mg/dL (8.4-10.2) 07/21/18 08:31 Magnesium 1.7 MG/DL (1.6-2.3) 07/19/18 02:56 Total Bilirubin 0.4 mg/dl (0.2-1.3) 07/19/18 04:53 AST 15 U/L (14-36) 07/19/18 04:53 ALT 24 U/L (9-52) 07/19/18 04:53 Alkaline Phosphatase 104 U/L (38-126) 07/19/18 04:53 Total Protein 5.8 G/DL (6.3-8.2) L 07/19/18 04:53 Albumin 3.2 g/dL (3.5-5.0) L 07/19/18 04:53 Globulin 2.6 gm/dL (2.2-3.9) 07/19/18 04:53 Albumin/Globulin Ratio 1.3 (1.0-2.1) 07/19/18 04:53 Lipase 134 U/L (23-300) 07/19/18 02:56 Arterial Blood Potassium 2.8 mmol/L (3.6-5.2) L 07/19/18 06:13 - Hospital Course Hospital Course: 68 year old female with PMHx of Anxiety, Asthma, Bipolar Disorder, CAD, CHF, COPD, CVA (no deficits), Dementia, Depression, Diabetes, HTN, Hypercholesterolemia, Schizophrenia is admitted for severe abdominal pain, leukocytosis and severe constipation. Surgery was consulted, pt given multiple enemas, after which abdominal pain and constipation resolved. On admission pt was significant hypokalemia, electrolytes replaced prn. Will d/c patient to home , with follow up in [facility] 1-3 days ([facility] will call pt for follow up). Cont all home meds: Enalapril-hctz 5/12.5mg PO daily Metformin HCl (Glucophage) 850 mg PO BID [facility] Metoprolol Tartrate (Lopressor) 25 mg PO Q12 [facility] Potassium Chloride (K-Dur 20 Meq Er Tab) 20 meq PO DAILY [facility] Rosuvastatin Calcium (Crestor) 10 mg PO HS [facility] Fluticasone/Salmeterol (Advair Diskus 250/50) 1 puff IH RQ12 [facility] Tiotropium Kohler (Spiriva) 18 mcg INH RQ24 [facility] Glipizide 5mg PO daily Ventolin HFA 90mcg New Med: Milk of Magnesia Discharge Exam - Head Exam Head Exam: ATRAUMATIC, NORMAL INSPECTION, NORMOCEPHALIC Additional comments: Pt refusing physical exam, in NAD, looks comfortable Discharge Plan - Discharge Medications Prescriptions: Magnesium Hydroxide [Milk Of Magnesia] 30 ml PO DAILY #1 c - Follow Up Plan Condition: FAIR Disposition: HOME/ ROUTINE Instructions: Diarrhea in Adolescents and Adults, Acute Abdomen (Belly Pain) Additional Instructions: Follow up at [facility] in 2-3 days. Referrals: [facility] [place] [Outside]
== END 2018-07-21 10:40 | disposition home or self-care (01) | DRG 392 ==
LOC: H.ER 02:09 → H.ERHOLD 11:09 → H.TEL 20:57
PROVIDERS: ADMIT Family Medicine Geriatric Medicine; ATTEND Family Medicine Geriatric Medicine
DX: K59.09 Other constipation (principal); K80.80 Other cholelithiasis without obstruction; E87.6 Hypokalemia; D72.828 Other elevated white blood cell count; I11.0 Hypertensive heart disease with heart failure; I25.10 Atherosclerotic heart disease of native coronary artery without angina pectoris; E11.9 Type 2 diabetes mellitus without complications; I50.9 Heart failure, unspecified; F31.9 Bipolar disorder, unspecified; E78.00 Pure hypercholesterolemia, unspecified; J44.9 Chronic obstructive pulmonary disease, unspecified; F41.9 Anxiety disorder, unspecified; F17.200 Nicotine dependence, unspecified, uncomplicated; Z86.73 Personal history of transient ischemic attack (TIA), and cerebral infarction without residual deficits; Z95.1 Presence of aortocoronary bypass graft; Z79.84 Long term (current) use of oral hypoglycemic drugs; Z59.0 Homelessness